=== PATIENT | female | born 1975 | race Caucasian/White ===

== ENCOUNTER 2017-03-28 21:42 | Emergency (ER) | payer SELFPAY ==
--- NOTE | 2017-03-28 21:53 | EDM.PDOC ---
ED HPI GENERAL MEDICAL PROBLEM - General Chief Complaint: ENT Problem Stated Complaint: WISDOM TOOTH Time Seen by Provider: 03/28/17 21:51 - History of Present Illness INITIAL COMMENTS - FREE TEXT/NARRATIVE: HISTORY AND PHYSICAL: History of present illness: Patient 41-year-old female presents with concern of upper dental pain this is her right upper molar region she has a scheduled dentist appointment on Tuesday no reported fever chills nausea vomiting or other complaints Review of systems: As per history of present illness and below otherwise all systems reviewed and negative. Past medical history: As per history of present illness and as reviewed below otherwise noncontributory. Surgical history: As per history of present illness and as reviewed below otherwise noncontributory. Social history: No reported history of drug or alcohol abuse. Family history: As per history of present illness and as reviewed below otherwise noncontributory. Physical exam: HEENT: Atraumatic, normocephalic, pupils reactive, negative for conjunctival pallor or scleral icterus, mucous membranes moist, throat clear, neck supple, nontender, trachea midline. Generally poor dentition patient has some tenderness and some small gingival swelling in region of the right upper molar Lungs: Clear to auscultation, breath sounds equal bilaterally, chest nontender. Heart: S1S2, regular, negative for clicks, rubs, or JVD. Abdomen: Soft, nondistended, nontender. Negative for masses or hepatosplenomegaly. Negative for costovertebral tenderness. Pelvis: Stable nontender. Genitourinary: Deferred. Rectal: Deferred. Extremities: Atraumatic, negative for cords or calf pain. Neurovascular unremarkable. Neuro: Awake, alert, oriented. Cranial nerves II through XII unremarkable. Cerebellum unremarkable. Motor and sensory unremarkable throughout. Exam nonfocal. Diagnostics: None Therapeutics: None Impression: #1 dentalgia rule out dental abscess Definitive disposition and diagnosis as appropriate pending reevaluation and review of above. - Related Data Allergies Allergy/AdvReac Type Severity Reaction Status Date / Time No Known Allergies Allergy Verified 03/28/17 21:49 ED ROS GENERAL - Review of Systems Review Of Systems: ROS reveals no pertinent complaints other than HPI. ED EXAM, GENERAL - Physical Exam Exam: See Below (See dictation) Departure - Departure Time of Disposition: 21:50 Disposition: Home, Self-Care 01 Condition: Good Clinical Impression: Dentalgia, Dental abscess - Discharge Information Additional Instructions: The following information is given to patients seen in the emergency department who are being discharged to home. This information is to outline your options for follow-up care. We provide all patients seen in our emergency department with a follow-up referral. The need for follow-up, as well as the timing and circumstances, are variable depending upon the specifics of your emergency department visit. If you don't have a primary care physician on staff, we will provide you with a referral. We always advise you to contact your personal physician following an emergency department visit to inform them of the circumstance of the visit and for follow-up with them and/or the need for any referrals to a consulting specialist. The emergency department will also refer you to a specialist when appropriate. This referral assures that you have the opportunity for followup care with a specialist. All of these measure are taken in an effort to provide you with optimal care, which includes your followup. Under all circumstances we always encourage you to contact your private physician who remains a resource for coordinating your care. When calling for followup care, please make the office aware that this follow-up is from your recent emergency room visit. If for any reason you are refused follow-up, please contact the [facility] emergency department at and asked to speak to the emergency department charge nurse. Wes-Vee K as prescribed Naprosyn as prescribed keep dental appointment as scheduled and return as needed as discussed
[2017-03-28 22:52] VITALS: BP 128/70
== END 2017-03-28 22:01 | disposition home or self-care (01) ==
LOC: MW.ED 21:42
DX: K04.7 Periapical abscess without sinus (principal)
CPT/HCPCS: 99282; 99283

== ENCOUNTER 2017-12-23 00:55 | Inpatient (IN) | payer OTHER ==
--- NOTE | 2017-12-23 00:57 | EDM.PDOC ---
ED HPI GENERAL MEDICAL PROBLEM - General Stated Complaint: BODY ACHES, HASN'T EATEN IN 5 DAYS, VOMITING Time Seen by Provider: 12/23/17 00:55 Source of Information: Reports: Patient History Limitations: Reports: No Limitations - History of Present Illness INITIAL COMMENTS - FREE TEXT/NARRATIVE: HISTORY AND PHYSICAL: History of present illness: 42-year-old female presented emergency department with chief complaint of generalized body aches, dizziness, and tingling with past medical history of hypertension, hyperlipidemia, and PTSD. Patient states that she has had nausea and vomiting for the for past 4-5 days and hasn't able to keep almost any fluids down. She does admit to some blood in her vomitus. Admits to some lower abdominal pain but no dysuria. States that 2 weeks ago she had some stomach cramps so started taking laxatives secondary to no bowel movements. States that her constipation was relieved and she noticed some black tarry stools. She has been having heartburn but no previous history. No previous history of gastric ulcers. She has also been taking Tums, Pepto, and Advil. Does admit to a product cough that has had some blood-tinged to it. Is a 25+ pack year smoker. -Bedside Hemoccult negative -0130 nursing called me to room patient feeling light headed. BP 66/43. T-castillo and IVF's wide open. Repeat blood pressure in 10 minutes 80's systolic. Repeat BP in 20 minutes systolic in 90's with MAPs in the 60's. 1 L bolus NS total given. Blood cultures have been taken and Rocephin 1 gram started. 2nd IV started. -0200 Critical Na reported at 111 with K of 2.9 Cr 4.2 Lactate unable to be measured. -0300 Repeat Na 112. KCl with 1 L NS started. Review of systems: As per history of present illness and below otherwise all systems reviewed and negative. Past medical history: As per history of present illness and as reviewed below otherwise noncontributory. Surgical history: As per history of present illness and as reviewed below otherwise noncontributory. Social history: No reported history of drug or alcohol abuse. Family history: As per history of present illness and as reviewed below otherwise noncontributory. Physical exam: HEENT: Atraumatic, normocephalic, pupils reactive, negative for conjunctival pallor or scleral icterus, mucous membranes moist, throat clear, neck supple, nontender, trachea midline. Lungs: Diffuse wheezing throughout. Crackles heard in right lower and right mid chest. Clear to auscultation, breath sounds equal bilaterally, chest nontender. Heart: S1S2, regular, negative for clicks, rubs, or JVD. Abdomen: Soft, nondistended, nontender. Negative for masses or hepatosplenomegaly. Negative for costovertebral tenderness. Pelvis: Stable nontender. Genitourinary: Deferred. Rectal: Deferred. Extremities: Atraumatic, negative for cords or calf pain. Neurovascular unremarkable. Neuro: Awake, alert, oriented. Cranial nerves II through XII unremarkable. Cerebellum unremarkable. Motor and sensory unremarkable throughout. Exam nonfocal. Diagnostics: CBC, CMP, UA/UC, stool guaiac, chest x-ray, blood cultures x2, Lactate, H. pylori, Sputum culture Therapeutics: 1 L LR, 1 L NS, 40 meq KCL IV, Zofran 8 mg IV 1, famotidine 20 mg IV 1, Duo- neb x1, Impression: -Severe Hyponatremia -Hypokalemia -Sepsis -Hypotension -UTI Plan: See H&P. In ED patient received a total of 1 L lactated Ringer's, 1 L normal saline, 1 L normal saline with 40 meq of potassium. Chest x-ray was unremarkable however on exam I'm somewhat suspicious that the patient does have a pneumonia which may not be showing up secondary to severe dehydration. As above patient's hypotension was stabilized with 1 L bolus initially of LR. 1 L normal saline was started after this as well as 40 meq KCl. Repeat sodium after critical value 111 and after 1 L bolus showed a sodium of 112. This was taken approximally 1.5hr after initial sodium critical value. After bolus patient symptoms of peripheral tingling had resolved. I did do a bedside Hemoccult which was negative for blood. Most likely dark tarry stools from laxative use. Patient did receive famotidine 20 mg IV 1. During patient's period of hypotension her oxygenation did drop into the mid 80s. She was started on 1-2 L per nasal cannula of oxygen. Secondary to wheezing and crackles on examination and desaturation she was given 1 DuoNeb. After breathing treatment patient was satting 98% on room air. [address] Camara called and informed of patient. Discussed at length patient's current status and he accepted her for ICU admission. I did repeat Lactate again and it was unreadable most likely too high. Definitive disposition and diagnosis as appropriate pending reevaluation and review of above. Generalized Pain Score (Numeric/FACES): 10 - Related Data Allergies Allergy/AdvReac Type Severity Reaction Status Date / Time pollen extracts Allergy Other Verified 12/23/17 01:09 pet dander Allergy Other Uncoded 12/23/17 01:09 Home Meds: Home Meds Lisinopril/Hydrochlorothiazide [Lisinopril-Hctz 20-12.5 mg Tab] 1 tab PO DAILY 03/28/17 [History] Metoprolol Succinate [Toprol XL] 25 mg PO DAILY 03/28/17 [History] Venlafaxine [Effexor XR] 150 mg PO DAILY 03/28/17 [History] clonazePAM [Klonopin] 1 tab TID 12/23/17 [History] Past Medical History HEENT History: Reports: None Cardiovascular History: Reports: Hypertension Respiratory History: Reports: None Gastrointestinal History: Reports: None Genitourinary History: Reports: None MEDICAL CHEMIST History: Reports: None Musculoskeletal History: Reports: None Neurological History: Reports: None Psychiatric History: Reports: Anxiety Endocrine/Metabolic History: Reports: None Hematologic History: Reports: None Immunologic History: Reports: None Oncologic (Cancer) History: Reports: None Dermatologic History: Reports: None - Infectious Disease History Infectious Disease History: Reports: Chicken Pox - Past Surgical History Head Surgeries/Procedures: Reports: None Cardiovascular Surgical History: Reports: None Female Surgical History: Reports: Other (See Below) Other Female Surgeries/Procedures: hysteroscopy Endocrine Surgical History: Reports: None Social & Family History - Caffeine Use Caffeine Use: Reports: None ED ROS GENERAL - Review of Systems Review Of Systems: See Below ED EXAM, GENERAL - Physical Exam Exam: See Below Course - Vital Signs Last Recorded V/S: Last Vital Signs Temp 97.2 F 12/23/17 01:37 Pulse 68 12/23/17 02:20 Resp 14 12/23/17 02:20 BP 99/41 L 12/23/17 02:20 Pulse Ox 100 12/23/17 02:20 - Orders/Labs/Meds Orders: Active Orders 24 hr Category Date Time Status CXR [Chest 2V] [CR] Stat Exams 12/23/17 01:19 Ordered CULTURE BLOOD [BC] Stat Lab 12/23/17 01:58 Received CULTURE BLOOD [BC] Stat Lab 12/23/17 02:12 Received CULTURE URINE [RM] Stat Lab 12/23/17 01:19 Ordered LACTATE WITH REFLEX [BG] Stat Lab 12/23/17 01:58 Received UA W/MICROSCOPIC [URIN] Stat Lab 12/23/17 01:19 Ordered Sodium Chloride 0.9% with KCl [Normal Saline with 40 Med 12/23/17 02:30 Ordered mEq KCl] 1,000 ml IV ASDIRECTED cefTRIAXone [Rocephin in Dextrose,Iso-Osm 1 GM/50 ML] 1 Med 12/23/17 02:19 Active gm Premix Bag 1 bag IV ONETIME Blood Culture x2 Reflex Set [OM.PC] Stat Oth 12/23/17 01:35 Ordered Medication Orders Ceftriaxone Sodium/Dextrose 1 (gm/ Premix) 50 mls @ 100 mls/hr IV ONETIME ONE Stop: 12/23/17 02:48 Labs: Laboratory Tests 12/23/17 12/23/17 12/23/17 Range/Units 01:25 01:25 01:25 WBC 10.41 (4.0-11.0) K/uL RBC 4.68 (4.30-5.90) M/uL Hgb 15.3 (12.0-16.0) g/dL Hct 41.3 (36.0-46.0) % MCV 88.2 (80.0-98.0) fL MCH 32.7 H (27.0-32.0) pg MCHC 37.0 (31.0-37.0) g/dL RDW Std Deviation 37.2 (28.0-62.0) fl RDW Coeff of Sherri 12 (11.0-15.0) % Plt Count 326 (150-400) K/uL MPV 9.70 (7.40-12.00) fL Neut % (Auto) 57.0 (48.0-80.0) % Lymph % (Auto) 29.5 (16.0-40.0) % Towns % (Auto) 11.6 (0.0-15.0) % Eos % (Auto) 1.4 (0.0-7.0) % Baso % (Auto) 0.5 (0.0-1.5) % Neut # (Auto) 5.9 H (1.4-5.7) K/uL Lymph # (Auto) 3.1 H (0.6-2.4) K/uL Towns # (Auto) 1.2 H (0.0-0.8) K/uL Eos # (Auto) 0.2 (0.0-0.7) K/uL Baso # (Auto) 0.1 (0.0-0.1) K/uL Sodium 111 L* (136-145) mmol/L Potassium 2.9 L (3.5-5.1) mmol/L Chloride 68 L (98-107) mmol/L Carbon Dioxide 28.2 (21.0-32.0) mmol/L BUN 33 H (7.0-18.0) mg/dL Creatinine 4.2 H (0.6-1.0) mg/dL Est Cr Clr Drug Dosing 16.67 mL/min Estimated GFR (MDRD) 11.7 ml/min Glucose 98 (74-106) mg/dL Calcium 10.6 H (8.5-10.1) mg/dL Total Bilirubin 0.4 (0.2-1.0) mg/dL AST 47 H (15-37) IU/L ALT 30 (14-63) IU/L Alkaline Phosphatase 104 (46-116) U/L Total Protein 7.8 (6.4-8.2) g/dL Albumin 3.7 (3.4-5.0) g/dL Globulin 4.1 H (2.0-3.5) g/dL Albumin/Globulin Ratio 0.9 L (1.3-2.8) H. pylori IgG Antibody NEGATIVE (NEG) Meds: Medications Generic Name Dose Route Start Last Admin Trade Name Freq PRN Reason Stop Dose Admin Ceftriaxone Sodium/Dextrose 1 50 mls @ 100 mls/hr 12/23/17 02:19 gm/ Premix IV 12/23/17 02:48 ONETIME ONE Discontinued Medications Generic Name Dose Route Start Last Admin Trade Name Freq PRN Reason Stop Dose Admin Cyclobenzaprine HCl 10 mg 12/23/17 01:38 12/23/17 01:50 Flexeril PO 12/23/17 01:39 Not Given ONETIME ONE Famotidine 20 mg 12/23/17 01:20 12/23/17 01:29 Pepcid IVPUSH 12/23/17 01:21 20 mg ONETIME ONE Administration Lactated Ringer's 1,000 mls @ 999 mls/hr 12/23/17 01:20 12/23/17 01:29 Ringers, Lactated IV 12/23/17 02:20 999 mls/hr .BOLUS ONE Administration Ondansetron HCl 8 mg 12/23/17 01:20 12/23/17 01:29 Zofran IVPUSH 12/23/17 01:21 8 mg ONETIME ONE Administration Departure - Departure Time of Disposition: 03:40 Disposition: Admitted As Inpatient 68 Condition: Critical Clinical Impression: Hyponatremia - Discharge Information Referrals: John Roman MD [Primary Care Provider] - - My Orders Last 24 Hours: My Active Orders 12/23/17 01:19 CXR [Chest 2V] [CR] Stat CULTURE URINE [RM] Stat UA W/MICROSCOPIC [URIN] Stat 12/23/17 01:35 Blood Culture x2 Reflex Set [OM.PC] Stat 12/23/17 01:58 CULTURE BLOOD [BC] Stat LACTATE WITH REFLEX [BG] Stat 12/23/17 02:12 CULTURE BLOOD [BC] Stat 12/23/17 02:19 cefTRIAXone [Rocephin in Dextrose,Iso-Osm 1 GM/50 ML] 1 gm Premix Bag 1 bag IV ONETIME 12/23/17 02:30 Sodium Chloride 0.9% with KCl [Normal Saline with 40 mEq KCl] 1,000 ml IV ASDIRECTED - Assessment/Plan Last 24 Hours: My Active Orders 12/23/17 01:19 CXR [Chest 2V] [CR] Stat CULTURE URINE [RM] Stat UA W/MICROSCOPIC [URIN] Stat 12/23/17 01:35 Blood Culture x2 Reflex Set [OM.PC] Stat 12/23/17 01:58 CULTURE BLOOD [BC] Stat LACTATE WITH REFLEX [BG] Stat 12/23/17 02:12 CULTURE BLOOD [BC] Stat 12/23/17 02:19 cefTRIAXone [Rocephin in Dextrose,Iso-Osm 1 GM/50 ML] 1 gm Premix Bag 1 bag IV ONETIME 12/23/17 02:30 Sodium Chloride 0.9% with KCl [Normal Saline with 40 mEq KCl] 1,000 ml IV ASDIRECTED
[2017-12-23] MEDS ORDERED: Ondansetron 4 MG/2 ML SDV IVPUSH ONE (01:20)
[2017-12-23] MEDS ORDERED: Famotidine 20 MG/2 ML SDV IVPUSH ONE (01:20)
[2017-12-23] MEDS ORDERED: Lactated Ringers 1,000 ML IV ONE (01:20)
[2017-12-23] MEDS ORDERED: Cyclobenzaprine 10 MG Tab PO ONE (01:38)
[2017-12-23] MEDS ORDERED: cefTRIAXone 1 GM in Premix Bag 1 BAG IV ONE (02:19)
[2017-12-23] MEDS ORDERED: Sodium Chloride 0.9% with KCl 1,000 ML IV SCH (02:30)
[2017-12-23] MEDS ORDERED: Sodium Chloride 0.9% 1,000 ML IV SCH ×2 (02:45→11:15)
[2017-12-23] MEDS ORDERED: Albuterol/Ipratropium 3.0-0.5 MG/3 ML Neb Soln NEB ONE (02:46)
[2017-12-23] MEDS ORDERED: LORazepam 2 MG/ML SDV IVPUSH PRN (05:20)
[2017-12-23] MEDS ORDERED: Levofloxacin/Dextrose 5%-Water 750 MG in Premix Bag 1 BAG IV ONE (05:30)
[2017-12-23] MEDS: Folic Acid 1 MG Tab PO SCH ×3 (05:42→08:03)
[2017-12-23] MEDS: Thiamine 100 MG Tab PO SCH ×3 (05:42→08:03)
[2017-12-23] MEDS ORDERED: Ondansetron 4 MG/2 ML SDV IVPUSH PRN (06:03)
[2017-12-23] MEDS ORDERED: Heparin Sodium 5,000 Units/ML Vial SUBCUT SCH (06:15)
--- NOTE | 2017-12-23 06:18 | PCM.HP ---
H&P History of Present Illness - General Admit Problem/Dx: Admission Diagnosis/Problem Admission Diagnosis/Problem Hyponatremia - History of Present Illness Initial Comments - Free Text/Narative: 42 yo female with pmh of HTN, anxiety and depression who presented to the ED with one week history of nausea and vomiting. Patient reports it started with abdominal cramping and constipation. Patient took laxative which resolved her abdominal symptoms. She then developed nausea and vomiting and is unable to keep anything down. She denies any blood in the stool or vomit. She denies any fevers but reports cough. She has been taking Klonipine three time a day as well as three tall glasses of vodka a day for her "panic attacks." Patient reports withdrawal symptoms when she tries to cut back. Generalized Pain Score (Numeric/FACES): 6 - Related Data Allergies/Adverse Reactions: Allergies Allergy/AdvReac Type Severity Reaction Status Date / Time pollen extracts Allergy Other Verified 12/23/17 01:09 pet dander Allergy Other Uncoded 12/23/17 01:09 Home Medications: Home Meds Lisinopril/Hydrochlorothiazide [Lisinopril-Hctz 20-12.5 mg Tab] 1 tab PO DAILY 03/28/17 [History] Metoprolol Succinate [Toprol XL] 25 mg PO DAILY 03/28/17 [History] Venlafaxine [Effexor XR] 150 mg PO DAILY 03/28/17 [History] clonazePAM [Klonopin] 1 tab TID 12/23/17 [History] Past Medical History HEENT History: Reports: None Cardiovascular History: Reports: Hypertension Respiratory History: Reports: None Gastrointestinal History: Reports: None Genitourinary History: Reports: None [employer] History: Reports: Fibroids Musculoskeletal History: Reports: None Neurological History: Reports: None Psychiatric History: Reports: Anxiety Endocrine/Metabolic History: Reports: None Hematologic History: Reports: None Immunologic History: Reports: None Oncologic (Cancer) History: Reports: None Dermatologic History: Reports: None - Infectious Disease History Infectious Disease History: Reports: Chicken Pox - Past Surgical History Head Surgeries/Procedures: Reports: None Cardiovascular Surgical History: Reports: None Female Surgical History: Reports: Other (See Below) Other Female Surgeries/Procedures: hysteroscopy Endocrine Surgical History: Reports: None Social & Family History - Family History Family Medical History: Noncontributory - Tobacco Use Smoking Status *Q: Current Every Day Smoker Years of Tobacco use: 23 Packs/Tins Daily: 1 Second Hand Smoke Exposure: No - Caffeine Use Caffeine Use: Reports: None - Alcohol Use Days Per Week of Alcohol Use: 7 Number of Drinks Per Day: 3 Total Drinks Per Week: 21 Date of Last Drink: 12/22/17 Time of Last Drink: 19:30 - Recreational Drug Use Recreational Drug Use: No H&P Review of Systems - Review of Systems: Review Of Systems: ROS reveals no pertinent complaints other than HPI. Exam - Exam Exam: See Below - Vital Signs Vital Signs: Last Vital Signs Temp 36.1 C 12/23/17 04:00 Pulse 80 12/23/17 04:00 Resp 14 12/23/17 04:00 BP 111/42 L 12/23/17 04:00 Pulse Ox 95 12/23/17 04:00 Weight: 91.3 kg - Exam General: Alert, Oriented HEENT: Posterior Pharynx Clear Neck: Supple, Trachea Midline Lungs: Clear to Auscultation, Normal Respiratory Effort Cardiovascular: Regular Rate, Regular Rhythm GI/Abdominal Exam: Normal Bowel Sounds, Soft, No Organomegaly, No Distention Extremities: Non-Tender, No Pedal Edema Skin: Warm, Dry, Intact - Patient Data Lab Results Last 24 hrs: Laboratory Results - last 24 hr 12/23/17 12/23/17 12/23/17 Range/Units 01:19 01:25 01:25 WBC 10.41 (4.0-11.0) K/uL RBC 4.68 (4.30-5.90) M/uL Hgb 15.3 (12.0-16.0) g/dL Hct 41.3 (36.0-46.0) % MCV 88.2 (80.0-98.0) fL MCH 32.7 H (27.0-32.0) pg MCHC 37.0 (31.0-37.0) g/dL RDW Std Deviation 37.2 (28.0-62.0) fl RDW Coeff of Sherri 12 (11.0-15.0) % Plt Count 326 (150-400) K/uL MPV 9.70 (7.40-12.00) fL Neut % (Auto) 57.0 (48.0-80.0) % Lymph % (Auto) 29.5 (16.0-40.0) % [place] % (Auto) 11.6 (0.0-15.0) % Eos % (Auto) 1.4 (0.0-7.0) % Baso % (Auto) 0.5 (0.0-1.5) % Neut # (Auto) 5.9 H (1.4-5.7) K/uL Lymph # (Auto) 3.1 H (0.6-2.4) K/uL [place] # (Auto) 1.2 H (0.0-0.8) K/uL Eos # (Auto) 0.2 (0.0-0.7) K/uL Baso # (Auto) 0.1 (0.0-0.1) K/uL Lactate Sodium 111 L* (136-145) mmol/L Potassium 2.9 L (3.5-5.1) mmol/L Chloride 68 L (98-107) mmol/L Carbon Dioxide 28.2 (21.0-32.0) mmol/L BUN 33 H (7.0-18.0) mg/dL Creatinine 4.2 H (0.6-1.0) mg/dL Est Cr Clr Drug Dosing 16.67 mL/min Estimated GFR (MDRD) 11.7 ml/min Glucose 98 (74-106) mg/dL Calcium 10.6 H (8.5-10.1) mg/dL Total Bilirubin 0.4 (0.2-1.0) mg/dL AST 47 H (15-37) IU/L ALT 30 (14-63) IU/L Alkaline Phosphatase 104 (46-116) U/L Total Protein 7.8 (6.4-8.2) g/dL Albumin 3.7 (3.4-5.0) g/dL Globulin 4.1 H (2.0-3.5) g/dL Albumin/Globulin Ratio 0.9 L (1.3-2.8) Urine Color YELLOW Urine Appearance SLT CLOUDY Urine pH 6.0 (5.0-8.0) Ur Specific [place] 1.015 (1.001-1.035) Urine Protein TRACE (NEGATIVE) mg/dL Urine Glucose (UA) NEGATIVE (NEGATIVE) mg/dL Urine Ketones NEGATIVE (NEGATIVE) mg/dL Urine Occult Blood NEGATIVE (NEGATIVE) Urine Nitrite NEGATIVE (NEGATIVE) Urine Bilirubin NEGATIVE (NEGATIVE) Urine Urobilinogen 0.2 (<2.0) EU/dL Ur Leukocyte Esterase TRACE (NEGATIVE) Urine RBC NONE SEEN (0-2/HPF) Urine WBC 6-11 (0-5/HPF) Ur Epithelial Cells MODERATE (NONE-FEW) Calcium Oxalate Crystal RARE (NEGATIVE) Urine Bacteria FEW (NEGATIVE) Urine Mucus LIGHT (NONE-MOD) H. pylori IgG Antibody (NEG) 12/23/17 12/23/17 12/23/17 Range/Units 01:25 01:58 01:58 WBC (4.0-11.0) K/uL RBC (4.30-5.90) M/uL Hgb (12.0-16.0) g/dL Hct (36.0-46.0) % MCV (80.0-98.0) fL MCH (27.0-32.0) pg MCHC (31.0-37.0) g/dL RDW Std Deviation (28.0-62.0) fl RDW Coeff of Sherri (11.0-15.0) % Plt Count (150-400) K/uL MPV (7.40-12.00) fL Neut % (Auto) (48.0-80.0) % Lymph % (Auto) (16.0-40.0) % [place] % (Auto) (0.0-15.0) % Eos % (Auto) (0.0-7.0) % Baso % (Auto) (0.0-1.5) % Neut # (Auto) (1.4-5.7) K/uL Lymph # (Auto) (0.6-2.4) K/uL [place] # (Auto) (0.0-0.8) K/uL Eos # (Auto) (0.0-0.7) K/uL Baso # (Auto) (0.0-0.1) K/uL Lactate WIRE STEWARD Sodium 112 L* (136-145) mmol/L Potassium (3.5-5.1) mmol/L Chloride (98-107) mmol/L Carbon Dioxide (21.0-32.0) mmol/L BUN (7.0-18.0) mg/dL Creatinine (0.6-1.0) mg/dL Est Cr Clr Drug Dosing mL/min Estimated GFR (MDRD) ml/min Glucose (74-106) mg/dL Calcium (8.5-10.1) mg/dL Total Bilirubin (0.2-1.0) mg/dL AST (15-37) IU/L ALT (14-63) IU/L Alkaline Phosphatase (46-116) U/L Total Protein (6.4-8.2) g/dL Albumin (3.4-5.0) g/dL Globulin (2.0-3.5) g/dL Albumin/Globulin Ratio (1.3-2.8) Urine Color Urine Appearance Urine pH (5.0-8.0) Ur Specific [place] (1.001-1.035) Urine Protein (NEGATIVE) mg/dL Urine Glucose (UA) (NEGATIVE) mg/dL Urine Ketones (NEGATIVE) mg/dL Urine Occult Blood (NEGATIVE) Urine Nitrite (NEGATIVE) Urine Bilirubin (NEGATIVE) Urine Urobilinogen (<2.0) EU/dL Ur Leukocyte Esterase (NEGATIVE) Urine RBC (0-2/HPF) Urine WBC (0-5/HPF) Ur Epithelial Cells (NONE-FEW) Calcium Oxalate Crystal (NEGATIVE) Urine Bacteria (NEGATIVE) Urine Mucus (NONE-MOD) H. pylori IgG Antibody NEGATIVE (NEG) 12/23/17 12/23/17 12/23/17 Range/Units 02:50 05:01 05:01 WBC (4.0-11.0) K/uL RBC (4.30-5.90) M/uL Hgb (12.0-16.0) g/dL Hct (36.0-46.0) % MCV (80.0-98.0) fL MCH (27.0-32.0) pg MCHC (31.0-37.0) g/dL RDW Std Deviation (28.0-62.0) fl RDW Coeff of Sherri (11.0-15.0) % Plt Count (150-400) K/uL MPV (7.40-12.00) fL Neut % (Auto) (48.0-80.0) % Lymph % (Auto) (16.0-40.0) % [place] % (Auto) (0.0-15.0) % Eos % (Auto) (0.0-7.0) % Baso % (Auto) (0.0-1.5) % Neut # (Auto) (1.4-5.7) K/uL Lymph # (Auto) (0.6-2.4) K/uL [place] # (Auto) (0.0-0.8) K/uL Eos # (Auto) (0.0-0.7) K/uL Baso # (Auto) (0.0-0.1) K/uL Lactate WIRE STEWARD WIRE STEWARD Sodium 114 L* (136-145) mmol/L Potassium 3.0 L (3.5-5.1) mmol/L Chloride 76 L (98-107) mmol/L Carbon Dioxide 28.4 (21.0-32.0) mmol/L BUN 31 H (7.0-18.0) mg/dL Creatinine 3.4 H (0.6-1.0) mg/dL Est Cr Clr Drug Dosing 20.59 mL/min Estimated GFR (MDRD) 15.0 ml/min Glucose 93 (74-106) mg/dL Calcium 10.1 (8.5-10.1) mg/dL Total Bilirubin (0.2-1.0) mg/dL AST (15-37) IU/L ALT (14-63) IU/L Alkaline Phosphatase (46-116) U/L Total Protein (6.4-8.2) g/dL Albumin (3.4-5.0) g/dL Globulin (2.0-3.5) g/dL Albumin/Globulin Ratio (1.3-2.8) Urine Color Urine Appearance Urine pH (5.0-8.0) Ur Specific [place] (1.001-1.035) Urine Protein (NEGATIVE) mg/dL Urine Glucose (UA) (NEGATIVE) mg/dL Urine Ketones (NEGATIVE) mg/dL Urine Occult Blood (NEGATIVE) Urine Nitrite (NEGATIVE) Urine Bilirubin (NEGATIVE) Urine Urobilinogen (<2.0) EU/dL Ur Leukocyte Esterase (NEGATIVE) Urine RBC (0-2/HPF) Urine WBC (0-5/HPF) Ur Epithelial Cells (NONE-FEW) Calcium Oxalate Crystal (NEGATIVE) Urine Bacteria (NEGATIVE) Urine Mucus (NONE-MOD) H. pylori IgG Antibody (NEG) Result Diagrams: 12/23/17 01:25 12/23/17 05:01 Kunal Results Last 24 hrs: Microbiology 12/23/17 03:00 Gram Stain - Final Sputum - Expectorated Problem List Initiated/Reviewed/Updated: Yes Orders Last 24hrs: Active Orders 24 hr Category Date Time Status Admission Status [Patient Status] [ADT] Stat ADT 12/23/17 03:27 Active Cardiac Monitoring [RC] . DIRECTED Care 12/23/17 03:27 Active Oxygen Therapy [RC] PRN Care 12/23/17 06:03 Ordered RT Aerosol Therapy [RC] ASDIRECTED Care 12/23/17 02:46 Active Up ad Rosalia [RC] ASDIRECTED Care 12/23/17 06:03 Ordered VTE/DVT Education [RC] PER UNIT ROUTINE Care 12/23/17 06:03 Ordered Vital Signs [RC] Q4H Care 12/23/17 06:03 Ordered CXR [Chest 2V] [CR] Stat Exams 12/23/17 01:19 Taken PICC Line Insertion [CR] Routine Exams 12/23/17 06:06 Ordered BASIC METABOLIC PANEL,BMP [CHEM] AM Lab 12/24/17 05:11 Ordered BMP [BASIC METABOLIC PANEL,BMP] [CHEM] Routine Lab 12/23/17 13:00 Ordered CBC WITH AUTO DIFF [HEME] AM Lab 12/24/17 05:11 Ordered CULTURE BLOOD [BC] Stat Lab 12/23/17 01:58 Received CULTURE BLOOD [BC] Stat Lab 12/23/17 02:12 Received CULTURE SPUTUM + SMEAR [RM] Stat Lab 12/23/17 03:00 Ordered CULTURE URINE [RM] Stat Lab 12/23/17 01:19 Ordered INFLUENZA A+B AG SCREEN [RM] Urgent Lab 12/23/17 05:40 Ordered SODIUM,NA [CHEM] Q4H Lab 12/23/17 09:00 Ordered SODIUM,NA [CHEM] Q4H Lab 12/23/17 17:00 Ordered SODIUM,NA [CHEM] Q4H Lab 12/23/17 21:00 Ordered UA W/MICROSCOPIC [URIN] Stat Lab 12/23/17 01:19 Ordered ClonazePAM [KlonoPIN] Med 12/23/17 06:07 Ordered 1 tab PO TID Folic Acid Med 12/23/17 05:30 Active 1 mg PO DAILY Heparin Sodium Med 12/23/17 06:15 Ordered 5,000 units SUBCUT Q12H Heparin Sodium Med 12/23/17 06:15 Ordered 5,000 units SUBCUT Q8H LORazepam [Ativan] Med 12/23/17 05:20 Active See Protocol IVPUSH Q4H PRN Levofloxacin/Dextrose 5%-Water [Levaquin in D5W 500 MG/ Med 12/25/17 05:30 Active 100 ML] 100 ml IV Q48H Levofloxacin/Dextrose 5%-Water [Levaquin in D5W 750 MG/ Med 12/23/17 05:30 Active 150 ML] 750 mg Premix Bag 1 bag IV NOW Ondansetron [Zofran] Med 12/23/17 06:03 Ordered 4 mg IVPUSH Q4H PRN Pantoprazole [ProTONIX IV] Med 12/23/17 09:00 Ordered 40 mg IVPUSH DAILY Sodium Chloride 0.9% [Normal Saline] 1,000 ml Med 12/23/17 02:45 Active IV ASDIRECTED Sodium Chloride 0.9% with KCl [Normal Saline with 40 Med 12/23/17 02:30 Active mEq KCl] 1,000 ml IV ASDIRECTED Thiamine [Vitamin B-1] Med 12/23/17 05:30 Active 100 mg PO DAILY Blood Culture x2 Reflex Set [OM.PC] Stat Oth 12/23/17 01:35 Ordered Sequential Compression Device [OM.PC] Per Unit Routine Ot 12/23/17 06:04 Ordered Resuscitation Status Routine Resus Stat 12/23/17 06:03 Ordered Medication Orders Clonazepam (Klonopin) mg PO TID [facility] Folic Acid (Folic Acid) 1 mg PO DAILY [facility] Last Admin: 12/23/17 05:42 Dose: 1 mg Heparin Sodium (Porcine) (Heparin Sodium) 5,000 units SUBCUT Q12H DWAYNE Heparin Sodium (Porcine) (Heparin Sodium) 5,000 units SUBCUT Q8H [facility] Potassium Chloride/Sodium Chloride (Normal Saline With 40 Meq Kcl) 1,000 mls @ 125 mls/hr IV ASDIRECTED DWAYNE Last Admin: 12/23/17 02:51 Dose: 125 mls/hr Sodium Chloride (Normal Saline) 1,000 mls @ 999 mls/hr IV ASDIRECTED DWAYNE Last Admin: 12/23/17 02:34 Dose: 999 mls/hr Levofloxacin/Dextrose 750 mg/ (Premix) 150 mls @ 100 mls/hr IV NOW ONE Stop: 12/23/17 06:59 Last Admin: 12/23/17 05:43 Dose: 100 mls/hr Levofloxacin/Dextrose (Levaquin In D5w 500 Mg/100 Ml) 100 mls @ 100 mls/hr IV Q48H [facility]AY[facility] Lorazepam (Ativan) 0 mg IVPUSH Q4H PRN; Protocol PRN Reason: Agitation Ondansetron HCl (Zofran) 4 mg IVPUSH Q4H PRN PRN Reason: Nausea Pantoprazole Sodium (Protonix Iv) 40 mg IVPUSH DAILY [facility] Thiamine HCl (Vitamin B-1) 100 mg PO DAILY [facility] Last Admin: 12/23/17 05:42 Dose: 100 mg Assessment/Plan Comment:: 42 yo female admitted dehydration, acute kidney injury and hyponatremia. Hyponatremia: hypovolumic and due to home medications and alcohol. we will hydrate and monitor sodium closely I spoke with eICU eric and they will help manage ETOH abuse: continue klonopin, CIWA protocol, ativan prn, thiamin and folic acid UTI and possible pneumonia: treating with levaquin, cultures are pending.
[2017-12-23] MEDS: ClonazePAM 1 MG Tab PO SCH ×3 (06:39→21:13)
[2017-12-23] MEDS: Pantoprazole 40 MG Vial IVPUSH SCH (08:00)
[2017-12-23] MEDS: Heparin Sodium 5,000 Units/ML Vial SUBCUT SCH ×2 (08:00→18:48)
[2017-12-23] MEDS: Nicotine 14 MG/24 Hr Patch TRDERM SCH (08:01)
[2017-12-23] MEDS ORDERED: Sodium Chloride 0.45% 1,000 ML IV SCH (11:45)
--- NOTE | 2017-12-23 17:25 | CR ---
EXAM DATE: 12/23/17 PATIENT'S AGE: 42 Patient: MARCO ANTONIO GRAHAM Facility: [place], [place] Site . Site : [id number] Study: XRay Chest [id number]/[id number] 2:32:09 AM Ordering Physician: Marco Christianson Final Report: INDICATION: Cough TECHNIQUE: Chest radiograph 2 views COMPARISON: None FINDINGS: Moderate degradation of image quality noted due to body habitus. Mediastinum: The cardiac silhouette is normal in appearance and size. Mediastinum is within normal limits. Lungs: Both lungs are unremarkable in appearance. No sign of pleural effusion. No pneumothorax is seen. Bones and soft tissue: No significant findings. IMPRESSION: 1. No acute cardiopulmonary disease seen. Dictated by: Fernando Barber MD @ 12/23/2017 02:33:28 (Electronic Signature) Report Signed by Proxy. [facility]
[2017-12-23] MEDS: Dextrose 5% in Water 1,000 ML IV SCH (18:23)
[2017-12-23] MEDS ORDERED: Venlafaxine 75 MG Cap.ER PO SCH ×2 (18:35→21:00)
[2017-12-23] MEDS ORDERED: Desmopressin 4 MCG/1 ML Amp SUBCUT ONE (22:45)
[2017-12-24] MEDS ORDERED: Potassium Chloride 10% 20 MEQ/15 ML Soln 30 ML UD Cup PO ONE (01:53)
[2017-12-24] MEDS: Dextrose 5% in Water 1,000 ML IV SCH (04:33)
[2017-12-24] MEDS: Heparin Sodium 5,000 Units/ML Vial SUBCUT SCH ×2 (05:23→17:28)
[2017-12-24] MEDS: ClonazePAM 1 MG Tab PO SCH ×2 (05:23→14:59)
[2017-12-24] MEDS: Folic Acid 1 MG Tab PO SCH (09:28)
[2017-12-24] MEDS: Pantoprazole 40 MG Vial IVPUSH SCH (09:28)
[2017-12-24] MEDS: Thiamine 100 MG Tab PO SCH (09:28)
[2017-12-24] MEDS: Nicotine 14 MG/24 Hr Patch TRDERM SCH (10:11)
--- NOTE | 2017-12-24 11:52 | PCM.PN ---
- General Info Date of Service: 12/24/17 - Review of Systems Systems Review Comment:: feeling better - Patient Data Vitals - Most Recent: Last Vital Signs Temp 36.2 C 12/24/17 08:29 Pulse 75 12/23/17 19:00 Resp 17 12/24/17 11:00 BP 107/64 12/24/17 11:00 Pulse Ox 91 L 12/24/17 11:00 Weight - Most Recent: 88.1 kg I&O - Last 24 Hours: Intake & Output 12/23/17 12/24/17 12/24/17 22:59 06:59 14:59 Intake Total 1350 1324 576 Output Total 1400 900 250 Balance -50 424 326 Lab Results Last 24 Hours: Laboratory Results - last 24 hr 12/23/17 12/23/17 12/23/17 Range/Units 12:52 12:52 12:52 WBC (4.0-11.0) K/uL RBC (4.30-5.90) M/uL Hgb (12.0-16.0) g/dL Hct (36.0-46.0) % MCV (80.0-98.0) fL MCH (27.0-32.0) pg MCHC (31.0-37.0) g/dL RDW Std Deviation (28.0-62.0) fl RDW Coeff of Sherri (11.0-15.0) % Plt Count (150-400) K/uL MPV (7.40-12.00) fL Neut % (Auto) (48.0-80.0) % Lymph % (Auto) (16.0-40.0) % [place] % (Auto) (0.0-15.0) % Eos % (Auto) (0.0-7.0) % Baso % (Auto) (0.0-1.5) % Neut # (Auto) (1.4-5.7) K/uL Lymph # (Auto) (0.6-2.4) K/uL [place] # (Auto) (0.0-0.8) K/uL Eos # (Auto) (0.0-0.7) K/uL Baso # (Auto) (0.0-0.1) K/uL Nucleated RBC % /100WBC Nucleated RBCs # K/uL Lactate 0.9 (0.20-2.00) mmol/L Sodium 118 L* 118 L* (136-145) mmol/L Potassium 3.5 (3.5-5.1) mmol/L Chloride 81 L (98-107) mmol/L Carbon Dioxide 29.6 (21.0-32.0) mmol/L BUN 28 H (7.0-18.0) mg/dL Creatinine 2.9 H (0.6-1.0) mg/dL Est Cr Clr Drug Dosing 24.14 mL/min Estimated GFR (MDRD) 18.0 ml/min Glucose 91 (74-106) mg/dL Calcium 10.1 (8.5-10.1) mg/dL 12/23/17 12/23/17 12/24/17 Range/Units 17:14 20:59 00:21 WBC (4.0-11.0) K/uL RBC (4.30-5.90) M/uL Hgb (12.0-16.0) g/dL Hct (36.0-46.0) % MCV (80.0-98.0) fL MCH (27.0-32.0) pg MCHC (31.0-37.0) g/dL RDW Std Deviation (28.0-62.0) fl RDW Coeff of Sherri (11.0-15.0) % Plt Count (150-400) K/uL MPV (7.40-12.00) fL Neut % (Auto) (48.0-80.0) % Lymph % (Auto) (16.0-40.0) % [place] % (Auto) (0.0-15.0) % Eos % (Auto) (0.0-7.0) % Baso % (Auto) (0.0-1.5) % Neut # (Auto) (1.4-5.7) K/uL Lymph # (Auto) (0.6-2.4) K/uL [place] # (Auto) (0.0-0.8) K/uL Eos # (Auto) (0.0-0.7) K/uL Baso # (Auto) (0.0-0.1) K/uL Nucleated RBC % /100WBC Nucleated RBCs # K/uL Lactate (0.20-2.00) mmol/L Sodium 120 L 122 L 123 L (136-145) mmol/L Potassium 3.1 L (3.5-5.1) mmol/L Chloride 83 L (98-107) mmol/L Carbon Dioxide 33.3 H (21.0-32.0) mmol/L BUN 24 H (7.0-18.0) mg/dL Creatinine 1.9 H (0.6-1.0) mg/dL Est Cr Clr Drug Dosing 36.84 mL/min Estimated GFR (MDRD) 29.3 ml/min Glucose 108 H (74-106) mg/dL Calcium 9.8 (8.5-10.1) mg/dL 12/24/17 12/24/17 Range/Units 05:47 05:47 WBC 6.55 (4.0-11.0) K/uL RBC 4.16 L (4.30-5.90) M/uL Hgb 13.3 (12.0-16.0) g/dL Hct 38.3 (36.0-46.0) % MCV 92.1 (80.0-98.0) fL MCH 32.0 (27.0-32.0) pg MCHC 34.7 (31.0-37.0) g/dL RDW Std Deviation 42.4 (28.0-62.0) fl RDW Coeff of Sherri 13 (11.0-15.0) % Plt Count 279 (150-400) K/uL MPV 9.60 (7.40-12.00) fL Neut % (Auto) 50.8 (48.0-80.0) % Lymph % (Auto) 33.0 (16.0-40.0) % [place] % (Auto) 15.1 H (0.0-15.0) % Eos % (Auto) 0.8 (0.0-7.0) % Baso % (Auto) 0.3 (0.0-1.5) % Neut # (Auto) 3.3 (1.4-5.7) K/uL Lymph # (Auto) 2.2 (0.6-2.4) K/uL [place] # (Auto) 1.0 H (0.0-0.8) K/uL Eos # (Auto) 0.1 (0.0-0.7) K/uL Baso # (Auto) 0.0 (0.0-0.1) K/uL Nucleated RBC % 0.0 /100WBC Nucleated RBCs # 0 K/uL Lactate (0.20-2.00) mmol/L Sodium 123 L (136-145) mmol/L Potassium 3.5 (3.5-5.1) mmol/L Chloride 84 L (98-107) mmol/L Carbon Dioxide 34.1 H (21.0-32.0) mmol/L BUN 22 H (7.0-18.0) mg/dL Creatinine 1.6 H (0.6-1.0) mg/dL Est Cr Clr Drug Dosing 43.75 mL/min Estimated GFR (MDRD) 35.7 ml/min Glucose 96 (74-106) mg/dL Calcium 9.9 (8.5-10.1) mg/dL Kunal Results Last 24 Hours: Microbiology 12/23/17 02:12 Aerobic Blood Culture - Preliminary Blood - Venous - Lab Draw NO GROWTH AFTER 1 DAY Anaerobic Blood Culture - Preliminary NO GROWTH AFTER 1 DAY 12/23/17 01:58 Aerobic Blood Culture - Preliminary Blood - Venous NO GROWTH AFTER 1 DAY Anaerobic Blood Culture - Preliminary NO GROWTH AFTER 1 DAY 12/23/17 17:00 Influenza Type A Antigen Screen - Final Nasopharyngeal Swab NEGATIVE INFLUENZA A VIRUS AG Influenza Type B Antigen Screen - Final NEGATIVE INFLUENZA B VIRUS AG Med Orders - Current: Current Medications Clonazepam (Klonopin) 1 mg PO TID [facility] Last Admin: 12/24/17 05:23 Dose: 1 mg Folic Acid (Folic Acid) 1 mg PO DAILY [facility] Last Admin: 12/24/17 09:28 Dose: 1 mg Heparin Sodium (Porcine) (Heparin Sodium) 5,000 units SUBCUT Q12H [facility] Last Admin: 12/24/17 05:23 Dose: 5,000 units Levofloxacin/Dextrose (Levaquin In D5w 500 Mg/100 Ml) 100 mls @ 100 mls/hr IV Q48H [facility] Dextrose/Water (Dextrose 5% In Water) 1,000 mls @ 100 mls/hr IV ASDIRECTED [facility] Last Admin: 12/24/17 04:33 Dose: 100 mls/hr Lorazepam (Ativan) 0 mg IVPUSH Q4H PRN; Protocol PRN Reason: Agitation Last Admin: 12/23/17 15:35 Dose: 1 mg Nicotine (Habitrol) 14 mg TRDERM DAILY [facility] Last Admin: 12/24/17 10:11 Dose: 14 mg Ondansetron HCl (Zofran) 4 mg IVPUSH Q4H PRN PRN Reason: Nausea Pantoprazole Sodium (Protonix Iv) 40 mg IVPUSH DAILY [facility] Last Admin: 12/24/17 09:28 Dose: 40 mg Thiamine HCl (Vitamin B-1) 100 mg PO DAILY [facility] Last Admin: 12/24/17 09:28 Dose: 100 mg Venlafaxine HCl (Effexor Xr) 150 mg PO BEDTIME [facility]END[facility] Last Admin: 12/23/17 18:48 Dose: 150 mg Discontinued Medications Albuterol/Ipratropium (Duoneb 3.0-0.5 Mg/3 Ml) 3 ml NEB ONETIME ONE Stop: 12/23/17 02:47 Last Admin: 12/23/17 03:04 Dose: 3 ml Cyclobenzaprine HCl (Flexeril) 10 mg PO ONETIME ONE Stop: 12/23/17 01:39 Last Admin: 12/23/17 01:50 Dose: Not Given Desmopressin Acetate (Desmopressin) 2 mcg SUBCUT ONETIME ONE Stop: 12/23/17 22:46 Last Admin: 12/23/17 23:04 Dose: 2 mcg Famotidine (Pepcid) 20 mg IVPUSH ONETIME ONE Stop: 12/23/17 01:21 Last Admin: 12/23/17 01:29 Dose: 20 mg Lactated Ringer's (Ringers, Lactated) 1,000 mls @ 999 mls/hr IV .BOLUS ONE Stop: 12/23/17 02:20 Last Admin: 12/23/17 01:29 Dose: 999 mls/hr Ceftriaxone Sodium/Dextrose 1 (gm/ Premix) 50 mls @ 100 mls/hr IV ONETIME ONE Stop: 12/23/17 02:48 Last Admin: 12/23/17 02:34 Dose: 100 mls/hr Potassium Chloride/Sodium Chloride (Normal Saline With 40 Meq Kcl) 1,000 mls @ 125 mls/hr IV ASDIRECTED PENDING SALE TO [facility] Last Admin: 12/23/17 02:51 Dose: 125 mls/hr Sodium Chloride (Normal Saline) 1,000 mls @ 999 mls/hr IV ASDIRECTED PENDING SALE TO [facility] Last Admin: 12/23/17 02:34 Dose: 999 mls/hr Levofloxacin/Dextrose 750 mg/ (Premix) 150 mls @ 100 mls/hr IV NOW ONE Stop: 12/23/17 06:59 Last Admin: 12/23/17 05:43 Dose: 100 mls/hr Sodium Chloride (Normal Saline) 1,000 mls @ 75 mls/hr IV ASDIRECTED DWAYNE Sodium Chloride (Sodium Chloride 0.45%) 1,000 mls @ 75 mls/hr IV ASDIRECTED DWAYNE Last Admin: 12/23/17 11:46 Dose: 75 mls/hr Ondansetron HCl (Zofran) 8 mg IVPUSH ONETIME ONE Stop: 12/23/17 01:21 Last Admin: 12/23/17 01:29 Dose: 8 mg Potassium Chloride (Potassium Chloride) 40 meq PO ONETIME ONE Stop: 12/24/17 01:54 Last Admin: 12/24/17 02:26 Dose: 40 meq Venlafaxine HCl (Effexor Xr) 150 mg PO BEDTIME DWAYNE - Exam General: Alert, Oriented Neck: Supple Lungs: Clear to Auscultation, Normal Respiratory Effort Cardiovascular: Regular Rate, Regular Rhythm GI/Abdominal Exam: Normal Bowel Sounds, Soft, Non-Tender Extremities: Non-Tender, No Pedal Edema Skin: Warm, Dry, Intact Neurological: No New Focal Deficit - Problem List Review Problem List Initiated/Reviewed/Updated: Yes - My Orders Last 24 Hours: My Active Orders 12/25/17 05:30 Levofloxacin/Dextrose 5%-Water [Levaquin in D5W 500 MG/100 ML] 100 ml IV Q48H - Plan Plan:: 42 yo female admitted dehydration, acute kidney injury and hyponatremia. Hyponatremia: sodium is 123, eICU helping in management. patient on D5W and desmopressin to slow down rate of correction, will continue to monitor sodium closely. ETOH abuse: continue home dose of klonopin, CIWA protocol, ativan prn, thiamin and folic acid UTI and possible pneumonia: treating with levaquin, cultures are pending.
[2017-12-24] MEDS ORDERED: Sodium Chloride 0.45% 1,000 ML IV SCH (12:00)
[2017-12-24] MEDS ORDERED: LORazepam 2 MG/ML SDV IVPUSH ONE (18:45)
[2017-12-24] MEDS ORDERED: Venlafaxine 75 MG Cap.ER PO SCH (19:00)
[2017-12-24 20:49] VITALS: BP 120/82
[2017-12-25] MEDS ORDERED: Levofloxacin/Dextrose 5%-Water 100 ML IV SCH (05:30)
== END 2017-12-24 20:30 | disposition left against medical advice (07) | DRG 640 ==
LOC: MW.ED 00:55 → MW.ICU 03:27
PROVIDERS: ADMIT Internal Medicine; ATTEND Internal Medicine
DX: E87.1 Hypo-osmolality and hyponatremia (principal); J18.9 Pneumonia, unspecified organism; N17.9 Acute kidney failure, unspecified; N39.0 Urinary tract infection, site not specified; E86.0 Dehydration; I10 Essential (primary) hypertension; E78.5 Hyperlipidemia, unspecified; F10.10 Alcohol abuse, uncomplicated; F43.10 Post-traumatic stress disorder, unspecified; F41.9 Anxiety disorder, unspecified; F17.200 Nicotine dependence, unspecified, uncomplicated; Z79.899 Other long term (current) drug therapy
CPT/HCPCS: 36415; 71046; 71046-26; 80048; 80053; 81001; 83605; 83930; 83935; 84295; 85025; 86677; 87040; 87070; 87086; 87088; 87205; 87804; 94640; 96361; 96365; 96367; 96375; 99285-25; A9270-GY; C9113; J0696; J1644; J1956; J2060; J2405; J2597; J3480; J7030; J7040; J7060; J7120

== ENCOUNTER 2018-04-04 11:30 | Inpatient (IN) | payer OTHER ==
[2018-04-04] MEDS ORDERED: Sodium Chloride 0.9% 2.5 ML Syringe FLUSH PRN ×2 (13:09→16:09)
[2018-04-04] MEDS ORDERED: Ondansetron 4 MG/2 ML SDV IVPUSH ONE (13:09)
[2018-04-04] MEDS ORDERED: Sodium Chloride 0.9% 1,000 ML IV ONE (13:09)
[2018-04-04] MEDS ORDERED: Sodium Chloride 0.9% 10 ML Syringe FLUSH PRN ×2 (13:09→16:09)
--- NOTE | 2018-04-04 13:31 | EDM.PDOC ---
ED HPI GENERAL MEDICAL PROBLEM - General Chief Complaint: General Stated Complaint: DIZZY AND BACK PAIN Time Seen by Provider: 04/04/18 11:46 Source of Information: Reports: Patient History Limitations: Reports: No Limitations - History of Present Illness INITIAL COMMENTS - FREE TEXT/NARRATIVE: History of present illness: []Patient has been in bed for 2 weeks with abdominal pain, swelling, vomiting and diarrhea. She denies any fevers or chills and states she has not been able to eat anything for 2 weeks but has been tolerating some fluids. Patient is an alcoholic and drinks approximately 10 shots of vodka a day from her normal. Review of systems: As per history of present illness and below otherwise all systems reviewed and negative. Past medical history: As per history of present illness and as reviewed below otherwise noncontributory. Surgical history: As per history of present illness and as reviewed below otherwise noncontributory. Social history: No reported history of drug or alcohol abuse. Family history: As per history of present illness and as reviewed below otherwise noncontributory. Physical exam: General: Well developed, well nourished in NAD HEENT: Atraumatic, normocephalic, pupils reactive, positive for conjunctival pallor, negative scleral icterus, mucous membranes dry, throat clear, neck supple, nontender, trachea midline. Lungs: Clear to auscultation, breath sounds equal bilaterally, chest nontender. Heart: S1S2, regular, negative for clicks, rubs, or JVD. Abdomen: Soft, tympanitic to percussion, distended, nontender. Negative for masses or hepatosplenomegaly. Negative for costovertebral tenderness. Pelvis: Stable nontender. Genitourinary: Deferred. Rectal: Deferred. Extremities: Atraumatic, negative for cords or calf pain. Neurovascular unremarkable. Neuro: Awake, alert, oriented. Cranial nerves II through XII unremarkable. Cerebellum unremarkable. Motor and sensory unremarkable throughout. Exam nonfocal. Skin:warm and dry Diagnostics: CBC, CMP, lipase, lactic acid, UA, hCG Therapeutics: IV hydration/banana bag, potassium, Zofran ED Course: Remained stable Impression: Hyponatremia, hypokalemia, vomiting, diarrhea, trichomonas, UTI Prescriptions: Plan: Admit to ICU to the hospitalist service for correction of electrolytes Definitive disposition and diagnosis as appropriate pending reevaluation and review of above. Abdominal Pain Score (Numeric/FACES): 9 - Related Data Allergies Allergy/AdvReac Type Severity Reaction Status Date / Time pollen extracts Allergy Other Verified 12/23/17 01:09 pet dander Allergy Other Uncoded 12/23/17 01:09 Home Meds: Home Meds Lisinopril/Hydrochlorothiazide [Lisinopril-Hctz 20-12.5 mg Tab] 1 tab PO DAILY 03/28/17 [History] Metoprolol Succinate [Toprol XL] 25 mg PO DAILY 03/28/17 [History] Venlafaxine [Effexor XR] 150 mg PO DAILY 03/28/17 [History] clonazePAM [Klonopin] 1 tab TID 12/23/17 [History] Hydrocodone/Acetaminophen [[place] 7.5-325 Tablet] 04/04/18 [History] Ibuprofen 04/04/18 [History] Penicillin V Potassium 04/04/18 [History] Past Medical History HEENT History: Reports: None Cardiovascular History: Reports: Hypertension Respiratory History: Reports: None Gastrointestinal History: Reports: None Genitourinary History: Reports: None 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: Fibroids Musculoskeletal History: Reports: None Neurological History: Reports: None Psychiatric History: Reports: Addiction, Anxiety, Depression, Panic Attack Endocrine/Metabolic History: Reports: None Hematologic History: Reports: None Immunologic History: Reports: None Oncologic (Cancer) History: Reports: None Dermatologic History: Reports: None - Infectious Disease History Infectious Disease History: Reports: None - Past Surgical History Head Surgeries/Procedures: Reports: None Cardiovascular Surgical History: Reports: None Female Surgical History: Reports: Other (See Below) Other Female Surgeries/Procedures: hysteroscopy Endocrine Surgical History: Reports: None Social & Family History - Family History Family Medical History: Noncontributory - Tobacco Use Smoking Status *Q: Current Every Day Smoker Years of Tobacco use: 15 Packs/Tins Daily: 1 - Caffeine Use Caffeine Use: Reports: None - Recreational Drug Use Recreational Drug Use: No ED ROS GENERAL - Review of Systems Review Of Systems: ROS reveals no pertinent complaints other than HPI. ED EXAM, GENERAL - Physical Exam Exam: See Below (See history of present illness) Course - Vital Signs Last Recorded V/S: Last Vital Signs Temp 96.6 F 04/04/18 16:15 Pulse 83 04/04/18 16:00 Resp 14 04/04/18 16:30 BP 108/57 L 04/04/18 16:30 Pulse Ox 99 04/04/18 16:30 - Orders/Labs/Meds Orders: Active Orders 24 hr Category Date Time Status Patient Status [ADT] Stat ADT 04/04/18 15:00 Active EKG Documentation Completion [RC] STAT Care 04/04/18 14:00 Active MVI, Adult with Vitamin K [Infuvite Adult] 10 ml Med 04/04/18 14:01 Active Thiamine [Vitamin B-1] 100 mg Folic Acid 1 mg Potassium Chloride 40 meq Sodium Chloride 0.9% [Normal Saline] 1,000 ml IV ONETIME Sodium Chloride 0.9% [Saline Flush] Med 04/04/18 13:09 Active 10 ml FLUSH ASDIRECTED PRN Sodium Chloride 0.9% [Saline Flush] Med 04/04/18 13:09 Active 2.5 ml FLUSH ASDIRECTED PRN Saline Lock Insert [OM.PC] Stat Oth 04/04/18 13:09 Ordered Medication Orders Albuterol/Ipratropium (Duoneb 3.0-0.5 Mg/3 Ml) 3 ml NEB Q4HRRT PRN PRN Reason: Shortness Of Breath/wheezing Enoxaparin Sodium (Lovenox) 40 mg SUBCUT Q24H [facility] Folic Acid (Folic Acid) 1 mg SUBCUT DAILY [facility] Multivitamins/Minerals 10 ml/Thiamine HCl 100 mg/ Folic Acid 1 mg/ Potassium Chloride 40 meq/ Sodium Chloride 1,031.2 mls @ 250 mls/hr IV ONETIME ONE Stop: 04/04/18 18:08 Last Admin: 04/04/18 14:39 Dose: 250 mls/hr Ceftriaxone Sodium 1 gm/ (Sodium Chloride) 50 mls @ 100 mls/hr IV Q24H [facility] Lorazepam (Ativan) 0 mg IM Q4H PRN; Protocol PRN Reason: Agitation Morphine Sulfate (Morphine) 2 mg IVPUSH Q2H PRN PRN Reason: Pain (severe 7-10) Stop: 04/05/18 16:10 Ondansetron HCl (Zofran) 4 mg IVPUSH Q4H PRN PRN Reason: Nausea/Vomiting Pantoprazole Sodium (Protonix Iv) 40 mg IVPUSH DAILY [facility] Sodium Chloride (Saline Flush) 10 ml FLUSH ASDIRECTED PRN PRN Reason: Keep Vein Open Last Admin: 04/04/18 13:29 Dose: 10 ml Sodium Chloride (Saline Flush) 2.5 ml FLUSH ASDIRECTED PRN PRN Reason: Keep Vein Open Last Admin: 04/04/18 13:29 Dose: 2.5 ml Sodium Chloride (Saline Flush) 10 ml FLUSH ASDIRECTED PRN PRN Reason: Keep Vein Open Sodium Chloride (Saline Flush) 2.5 ml FLUSH ASDIRECTED PRN PRN Reason: Keep Vein Open Thiamine HCl (Vitamin B-1) 100 mg IV DAILY [facility] Labs: Laboratory Tests 04/04/18 04/04/18 04/04/18 Range/Units 12:50 12:50 13:30 WBC 15.58 H (4.0-11.0) K/uL RBC 3.81 L (4.30-5.90) M/uL Hgb 12.5 (12.0-16.0) g/dL Hct 33.4 L (36.0-46.0) % MCV 87.7 (80.0-98.0) fL MCH 32.8 H (27.0-32.0) pg MCHC 37.4 H (31.0-37.0) g/dL RDW Std Deviation 42.3 (28.0-62.0) fl RDW Coeff of Sherri 13 (11.0-15.0) % Plt Count 291 (150-400) K/uL MPV 9.80 (7.40-12.00) fL Neut % (Auto) 80.2 H (48.0-80.0) % Lymph % (Auto) 12.8 L (16.0-40.0) % [place] % (Auto) 6.5 (0.0-15.0) % Eos % (Auto) 0.4 (0.0-7.0) % Baso % (Auto) 0.1 (0.0-1.5) % Neut # (Auto) 12.5 H (1.4-5.7) K/uL Lymph # (Auto) 2.0 (0.6-2.4) K/uL [place] # (Auto) 1.0 H (0.0-0.8) K/uL Eos # (Auto) 0.1 (0.0-0.7) K/uL Baso # (Auto) 0.0 (0.0-0.1) K/uL Nucleated RBC % 0.0 /100WBC Nucleated RBCs # 0 K/uL Sodium 105 L* (136-145) mmol/L Potassium 2.4 L* (3.5-5.1) mmol/L Chloride 65 L (98-107) mmol/L Carbon Dioxide 21.4 (21.0-32.0) mmol/L BUN 57 H (7.0-18.0) mg/dL Creatinine 2.6 H (0.6-1.0) mg/dL Est Cr Clr Drug Dosing TNP Estimated GFR (MDRD) 20.4 ml/min Glucose 126 H (74-106) mg/dL Calcium 8.6 (8.5-10.1) mg/dL Total Bilirubin 0.4 (0.2-1.0) mg/dL AST 44 H (15-37) IU/L ALT 13 L (14-63) IU/L Alkaline Phosphatase 201 H (46-116) U/L Total Protein 7.3 (6.4-8.2) g/dL Albumin 2.7 L (3.4-5.0) g/dL Globulin 4.6 H (2.0-3.5) g/dL Albumin/Globulin Ratio 0.6 L (1.3-2.8) Lipase 286 (73-393) U/L Urine Color YELLOW Urine Appearance SLT CLOUDY Urine pH 6.0 (5.0-8.0) Ur Specific [place] 1.010 (1.001-1.035) Urine Protein 30 (NEGATIVE) mg/dL Urine Glucose (UA) NEGATIVE (NEGATIVE) mg/dL Urine Ketones NEGATIVE (NEGATIVE) mg/dL Urine Occult Blood LARGE H (NEGATIVE) Urine Nitrite NEGATIVE (NEGATIVE) Urine Bilirubin NEGATIVE (NEGATIVE) Urine Urobilinogen 0.2 (<2.0) EU/dL Ur Leukocyte Esterase MODERATE (NEGATIVE) Urine RBC 10-15 (0-2/HPF) Urine WBC 15-20 (0-5/HPF) Ur Epithelial Cells MODERATE (NONE-FEW) Urine Bacteria 1+ H (NEGATIVE) Urine Trichomonas PRESENT (NEGATIVE) Urine HCG, Qual (NEGATIVE) Ethyl Alcohol mg/dL 04/04/18 04/04/18 Range/Units 13:30 13:56 WBC (4.0-11.0) K/uL RBC (4.30-5.90) M/uL Hgb (12.0-16.0) g/dL Hct (36.0-46.0) % MCV (80.0-98.0) fL MCH (27.0-32.0) pg MCHC (31.0-37.0) g/dL RDW Std Deviation (28.0-62.0) fl RDW Coeff of Sherri (11.0-15.0) % Plt Count (150-400) K/uL MPV (7.40-12.00) fL Neut % (Auto) (48.0-80.0) % Lymph % (Auto) (16.0-40.0) % [place] % (Auto) (0.0-15.0) % Eos % (Auto) (0.0-7.0) % Baso % (Auto) (0.0-1.5) % Neut # (Auto) (1.4-5.7) K/uL Lymph # (Auto) (0.6-2.4) K/uL [place] # (Auto) (0.0-0.8) K/uL Eos # (Auto) (0.0-0.7) K/uL Baso # (Auto) (0.0-0.1) K/uL Nucleated RBC % /100WBC Nucleated RBCs # K/uL Sodium (136-145) mmol/L Potassium (3.5-5.1) mmol/L Chloride (98-107) mmol/L Carbon Dioxide (21.0-32.0) mmol/L BUN (7.0-18.0) mg/dL Creatinine (0.6-1.0) mg/dL Est Cr Clr Drug Dosing Estimated GFR (MDRD) ml/min Glucose (74-106) mg/dL Calcium (8.5-10.1) mg/dL Total Bilirubin (0.2-1.0) mg/dL AST (15-37) IU/L ALT (14-63) IU/L Alkaline Phosphatase (46-116) U/L Total Protein (6.4-8.2) g/dL Albumin (3.4-5.0) g/dL Globulin (2.0-3.5) g/dL Albumin/Globulin Ratio (1.3-2.8) Lipase (73-393) U/L Urine Color Urine Appearance Urine pH (5.0-8.0) Ur Specific [place] (1.001-1.035) Urine Protein (NEGATIVE) mg/dL Urine Glucose (UA) (NEGATIVE) mg/dL Urine Ketones (NEGATIVE) mg/dL Urine Occult Blood (NEGATIVE) Urine Nitrite (NEGATIVE) Urine Bilirubin (NEGATIVE) Urine Urobilinogen (<2.0) EU/dL Ur Leukocyte Esterase (NEGATIVE) Urine RBC (0-2/HPF) Urine WBC (0-5/HPF) Ur Epithelial Cells (NONE-FEW) Urine Bacteria (NEGATIVE) Urine Trichomonas (NEGATIVE) Urine HCG, Qual NEGATIVE (NEGATIVE) Ethyl Alcohol <3 mg/dL Meds: Medications Generic Name Dose Route Start Last Admin Trade Name Freq PRN Reason Stop Dose Admin Albuterol/Ipratropium 3 ml 04/04/18 16:09 Duoneb 3.0-0.5 Mg/3 Ml NEB Q4HRRT PRN Shortness Of Breath/wheezing Enoxaparin Sodium 40 mg 04/04/18 16:15 Lovenox SUBCUT Q24H [facility] Folic Acid 1 mg 04/04/18 16:15 Folic Acid SUBCUT DAILY [facility] Multivitamins/Minerals 10 ml/ 1,031.2 mls @ 250 mls/hr 04/04/18 14:01 14:39 Thiamine HCl 100 mg/ Folic IV 04/04/18 18:08 250 mls/hr Acid 1 mg/ Potassium Chloride ONETIME ONE Administration 40 meq/ Sodium Chloride Ceftriaxone Sodium 1 gm/ 50 mls @ 100 mls/hr 04/04/18 16:45 Sodium Chloride IV Q24H [facility] Lorazepam 0 mg 04/04/18 16:09 Ativan IM Q4H PRN Agitation Protocol Morphine Sulfate 2 mg 04/04/18 16:09 Morphine IVPUSH 04/05/18 16:10 Q2H PRN Pain (severe 7-10) Ondansetron HCl 4 mg 04/04/18 16:09 Zofran IVPUSH Q4H PRN Nausea/Vomiting Pantoprazole Sodium 40 mg 04/04/18 16:15 Protonix Iv IVPUSH DAILY [facility] Sodium Chloride 10 ml 04/04/18 13:09 04/04/18 13:29 Saline Flush FLUSH 10 ml ASDIRECTED PRN Administration Keep Vein Open Sodium Chloride 2.5 ml 04/04/18 13:09 04/04/18 13:29 Saline Flush FLUSH 2.5 ml ASDIRECTED PRN Administration Keep Vein Open Sodium Chloride 10 ml 04/04/18 16:09 Saline Flush FLUSH ASDIRECTED PRN Keep Vein Open Sodium Chloride 2.5 ml 04/04/18 16:09 Saline Flush FLUSH ASDIRECTED PRN Keep Vein Open Thiamine HCl 100 mg 04/04/18 16:15 Vitamin B-1 IV DAILY [facility] Discontinued Medications Generic Name Dose Route Start Last Admin Trade Name Freq PRN Reason Stop Dose Admin Sodium Chloride 1,000 mls @ 999 mls/hr 04/04/18 13:09 04/04/18 13:27 Normal Saline IV 04/04/18 14:09 999 mls/hr .Bolus ONE Administration Ondansetron HCl 4 mg 04/04/18 13:09 04/04/18 13:29 Zofran IVPUSH 04/04/18 13:10 4 mg ONETIME ONE Administration Potassium Chloride 80 meq 04/04/18 14:00 04/04/18 14:34 Klor-Con M20 PO 04/04/18 14:01 80 meq ONETIME ONE Administration Departure - Departure Time of Disposition: 15:55 Disposition: Admitted As Inpatient 68 Condition: Fair Clinical Impression: Alcoholic liver disease, unspecified, Hyponatremia, Hypokalemia, Trichomonas infection, UTI (urinary tract infection) - Discharge Information *PRESCRIPTION DRUG MONITORING PROGRAM REVIEWED*: No *COPY OF PRESCRIPTION DRUG MONITORING REPORT IN PATIENT HERMINIO: No - My Orders Last 24 Hours: My Active Orders 04/04/18 13:09 Sodium Chloride 0.9% [Saline Flush] 10 ml FLUSH ASDIRECTED PRN Sodium Chloride 0.9% [Saline Flush] 2.5 ml FLUSH ASDIRECTED PRN Saline Lock Insert [OM.PC] Stat 04/04/18 14:00 EKG Documentation Completion [RC] STAT 04/04/18 14:01 MVI, Adult with Vitamin K [Infuvite Adult] 10 ml Thiamine [Vitamin B-1] 100 mg Folic Acid 1 mg Potassium Chloride 40 meq Sodium Chloride 0.9% [Normal Saline ] 1,000 ml IV ONETIME 04/04/18 15:00 Patient Status [ADT] Stat - Assessment/Plan Last 24 Hours: My Active Orders 04/04/18 13:09 Sodium Chloride 0.9% [Saline Flush] 10 ml FLUSH ASDIRECTED PRN Sodium Chloride 0.9% [Saline Flush] 2.5 ml FLUSH ASDIRECTED PRN Saline Lock Insert [OM.PC] Stat 04/04/18 14:00 EKG Documentation Completion [RC] STAT 04/04/18 14:01 MVI, Adult with Vitamin K [Infuvite Adult] 10 ml Thiamine [Vitamin B-1] 100 mg Folic Acid 1 mg Potassium Chloride 40 meq Sodium Chloride 0.9% [Normal Saline ] 1,000 ml IV ONETIME 04/04/18 15:00 Patient Status [ADT] Stat
[2018-04-04 13:52] LABS: CHLORIDE,CL 65 mmol/L (98-107)
[2018-04-04 13:59] LABS: SODIUM,NA 105 mmol/L (136-145)
[2018-04-04] MEDS ORDERED: Potassium Chloride 20 MEQ Tab.ER PO ONE (14:00)
[2018-04-04] MEDS ORDERED: MVI, Adult with Vitamin K 10 ML, Thiamine 100 MG, Folic Acid 1 MG, Potassium Chloride 4... IV ONE ×5 (14:01)
--- NOTE | 2018-04-04 15:47 | CR ---
EXAMINATION: Abdomen HISTORY: Distention COMPARISON: None TECHNIQUE: AP views FINDINGS: The liver is likely enlarged. No free air under the diaphragm. There is a nonobstructive rosanna wel gas pattern. No abnormal calcifications present of the kidneys. Visualized osseous structures rsohan ear normal. IMPRESSION: 1. Likely hepatomegaly, otherwise no acute findings within the visualized abdomen.
[2018-04-04] MEDS ORDERED: Ondansetron 4 MG/2 ML SDV IVPUSH PRN (16:09)
[2018-04-04] MEDS ORDERED: Morphine 2 MG/ML Syringe IVPUSH PRN (16:09)
[2018-04-04] MEDS ORDERED: LORazepam 2 MG/ML SDV IM PRN (16:09)
[2018-04-04] MEDS ORDERED: Albuterol/Ipratropium 3.0-0.5 MG/3 ML Neb Soln NEB PRN (16:09)
[2018-04-04 16:15] LABS: CHLORIDE,CL 70 mmol/L (98-107)
[2018-04-04] MEDS ORDERED: Enoxaparin 40 MG/0.4 ML Syringe SUBCUT SCH (16:15)
[2018-04-04 16:27] LABS: SODIUM,NA 107 mmol/L (136-145)
[2018-04-04] MEDS ORDERED: cefTRIAXone 1 GM in Sodium Chloride 0.9% 50 ML IV SCH (16:45)
[2018-04-04] MEDS ORDERED: Magnesium Sulfate/Water 4 GM in Premix Bag 1 BAG IV ONE (17:03)
[2018-04-04] MEDS: Thiamine 200 MG/2 ML MDV IV SCH (17:15)
[2018-04-04] MEDS: Folic Acid 50 MG/10 ML MDV SUBCUT SCH (17:15)
--- NOTE | 2018-04-04 17:19 | PCM.HP ---
H&P History of Present Illness - General Date of Service: 04/04/18 Admit Problem/Dx: Admission Diagnosis/Problem Admission Diagnosis/Problem Hyponatremia Source of Information: Patient - History of Present Illness Initial Comments - Free Text/Narative: This is a 42-year-old female with a significant medical history of chronic alcohol use disorder who is presenting with a 2 week history of nausea/vomiting/ abdominal pain/diarrhea. Patient presented today to the ED and severe acute distress, had a difficult time walking around and PO2 be gait in stable, initially it was thought that the patient may be intoxicated due to her chronic alcohol history however upon further evaluation and laboratory results it appears that the patient's has a severe symptomatic hyponatremia with a serum sodium level of 105 along with a concurrent hypokalemia of a 2.4 as well as hypochloremia. There were no acute EKG changes. In the ED the patient did receive 1 bolus of normal saline and is presently receiving 1 L solution of a banana bag which contains normal saline, thiamine, folate, multivitamins. For the patient's abdominal pain and abdominal series has also been done which is pending. It also does appear the patient has a urinary tract infection with a urine analysis indicating an infection along with a leukocytosis which is primarily neutrophilic in nature. Abdominal Pain Score (Numeric/FACES): 9 - Related Data Allergies/Adverse Reactions: Allergies Allergy/AdvReac Type Severity Reaction Status Date / Time pollen extracts Allergy Other Verified 12/23/17 01:09 pet dander Allergy Other Uncoded 12/23/17 01:09 Home Medications: Home Meds Lisinopril/Hydrochlorothiazide [Lisinopril-Hctz 20-12.5 mg Tab] 1 tab PO DAILY 03/28/17 [History] Metoprolol Succinate [Toprol XL] 25 mg PO DAILY 03/28/17 [History] Venlafaxine [Effexor XR] 150 mg PO DAILY 03/28/17 [History] clonazePAM [Klonopin] 1 tab TID 12/23/17 [History] Hydrocodone/Acetaminophen [Bauxite 7.5-325 Tablet] 04/04/18 [History] Ibuprofen 04/04/18 [History] Penicillin V Potassium 04/04/18 [History] Past Medical History HEENT History: Reports: None Cardiovascular History: Reports: Hypertension Respiratory History: Reports: None Gastrointestinal History: Reports: None Genitourinary History: Reports: None 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 History: Reports: Fibroids Musculoskeletal History: Reports: None Neurological History: Reports: None Psychiatric History: Reports: Addiction, Anxiety, Depression, Panic Attack Endocrine/Metabolic History: Reports: None Hematologic History: Reports: None Other Hematologic History: Intermittent anemia per pt report Immunologic History: Reports: None Oncologic (Cancer) History: Reports: None Dermatologic History: Reports: None - Infectious Disease History Infectious Disease History: Reports: None - Past Surgical History Head Surgeries/Procedures: Reports: None Cardiovascular Surgical History: Reports: None Female Surgical History: Reports: Other (See Below) Other Female Surgeries/Procedures: hysteroscopy Endocrine Surgical History: Reports: None Social & Family History - Family History Family Medical History: Noncontributory - Tobacco Use Smoking Status *Q: Current Every Day Smoker Years of Tobacco use: 15 Packs/Tins Daily: 1 - Caffeine Use Caffeine Use: Reports: None - Alcohol Use Days Per Week of Alcohol Use: 7 Number of Drinks Per Day: 7 Total Drinks Per Week: 49 Date of Last Drink: 04/04/18 Time of Last Drink: 11:00 - Recreational Drug Use Recreational Drug Use: No H&P Review of Systems - Review of Systems: Review Of Systems: ROS reveals no pertinent complaints other than HPI. Exam - Exam Exam: See Below - Vital Signs Vital Signs: Last Vital Signs Temp 35.9 C 04/04/18 16:15 Pulse 83 04/04/18 16:00 Resp 14 04/04/18 16:45 BP 107/58 L 04/04/18 16:45 Pulse Ox 96 04/04/18 16:45 Weight: 83.5 kg - Exam Quality Assessment: Supplemental Oxygen General: Alert, Oriented, Cooperative, Mild Distress Lungs: Normal Respiratory Effort, Wheezing Cardiovascular: Regular Rate, Regular Rhythm GI/Abdominal Exam: Distended, Tender Extremities: Normal Inspection, Leg Pain - Patient Data Lab Results Last 24 hrs: Laboratory Results - last 24 hr 04/04/18 04/04/18 04/04/18 Range/Units 12:50 12:50 13:30 WBC 15.58 H (4.0-11.0) K/uL RBC 3.81 L (4.30-5.90) M/uL Hgb 12.5 (12.0-16.0) g/dL Hct 33.4 L (36.0-46.0) % MCV 87.7 (80.0-98.0) fL MCH 32.8 H (27.0-32.0) pg MCHC 37.4 H (31.0-37.0) g/dL RDW Std Deviation 42.3 (28.0-62.0) fl RDW Coeff of Sherri 13 (11.0-15.0) % Plt Count 291 (150-400) K/uL MPV 9.80 (7.40-12.00) fL Neut % (Auto) 80.2 H (48.0-80.0) % Lymph % (Auto) 12.8 L (16.0-40.0) % Mccreary % (Auto) 6.5 (0.0-15.0) % Eos % (Auto) 0.4 (0.0-7.0) % Baso % (Auto) 0.1 (0.0-1.5) % Neut # (Auto) 12.5 H (1.4-5.7) K/uL Lymph # (Auto) 2.0 (0.6-2.4) K/uL Mccreary # (Auto) 1.0 H (0.0-0.8) K/uL Eos # (Auto) 0.1 (0.0-0.7) K/uL Baso # (Auto) 0.0 (0.0-0.1) K/uL Nucleated RBC % 0.0 /100WBC Nucleated RBCs # 0 K/uL Sodium 105 L* (136-145) mmol/L Potassium 2.4 L* (3.5-5.1) mmol/L Chloride 65 L (98-107) mmol/L Carbon Dioxide 21.4 (21.0-32.0) mmol/L BUN 57 H (7.0-18.0) mg/dL Creatinine 2.6 H (0.6-1.0) mg/dL Est Cr Clr Drug Dosing TNP Estimated GFR (MDRD) 20.4 ml/min Glucose 126 H (74-106) mg/dL Calcium 8.6 (8.5-10.1) mg/dL Phosphorus (2.6-4.7) mg/dL Magnesium (1.8-2.4) mg/dL Total Bilirubin 0.4 (0.2-1.0) mg/dL AST 44 H (15-37) IU/L ALT 13 L (14-63) IU/L Alkaline Phosphatase 201 H (46-116) U/L Creatine Kinase (26-308) U/L Total Protein 7.3 (6.4-8.2) g/dL Albumin 2.7 L (3.4-5.0) g/dL Globulin 4.6 H (2.0-3.5) g/dL Albumin/Globulin Ratio 0.6 L (1.3-2.8) Lipase 286 (73-393) U/L Urine Color YELLOW Urine Appearance SLT CLOUDY Urine pH 6.0 (5.0-8.0) Ur Specific [place] 1.010 (1.001-1.035) Urine Protein 30 (NEGATIVE) mg/dL Urine Glucose (UA) NEGATIVE (NEGATIVE) mg/dL Urine Ketones NEGATIVE (NEGATIVE) mg/dL Urine Occult Blood LARGE H (NEGATIVE) Urine Nitrite NEGATIVE (NEGATIVE) Urine Bilirubin NEGATIVE (NEGATIVE) Urine Urobilinogen 0.2 (<2.0) EU/dL Ur Leukocyte Esterase MODERATE (NEGATIVE) Urine RBC 10-15 (0-2/HPF) Urine WBC 15-20 (0-5/HPF) Ur Epithelial Cells MODERATE (NONE-FEW) Urine Bacteria 1+ H (NEGATIVE) Urine Trichomonas PRESENT (NEGATIVE) Urine HCG, Qual (NEGATIVE) Ethyl Alcohol mg/dL 04/04/18 04/04/18 04/04/18 Range/Units 13:30 13:56 15:52 WBC (4.0-11.0) K/uL RBC (4.30-5.90) M/uL Hgb (12.0-16.0) g/dL Hct (36.0-46.0) % MCV (80.0-98.0) fL MCH (27.0-32.0) pg MCHC (31.0-37.0) g/dL RDW Std Deviation (28.0-62.0) fl RDW Coeff of Sherri (11.0-15.0) % Plt Count (150-400) K/uL MPV (7.40-12.00) fL Neut % (Auto) (48.0-80.0) % Lymph % (Auto) (16.0-40.0) % Mccreary % (Auto) (0.0-15.0) % Eos % (Auto) (0.0-7.0) % Baso % (Auto) (0.0-1.5) % Neut # (Auto) (1.4-5.7) K/uL Lymph # (Auto) (0.6-2.4) K/uL Mccreary # (Auto) (0.0-0.8) K/uL Eos # (Auto) (0.0-0.7) K/uL Baso # (Auto) (0.0-0.1) K/uL Nucleated RBC % /100WBC Nucleated RBCs # K/uL Sodium 107 L* (136-145) mmol/L Potassium 2.7 L (3.5-5.1) mmol/L Chloride 70 L (98-107) mmol/L Carbon Dioxide 22.6 (21.0-32.0) mmol/L BUN 57 H (7.0-18.0) mg/dL Creatinine 2.3 H (0.6-1.0) mg/dL Est Cr Clr Drug Dosing TNP Estimated GFR (MDRD) 23.5 ml/min Glucose 119 H (74-106) mg/dL Calcium 8.3 L (8.5-10.1) mg/dL Phosphorus (2.6-4.7) mg/dL Magnesium (1.8-2.4) mg/dL Total Bilirubin (0.2-1.0) mg/dL AST (15-37) IU/L ALT (14-63) IU/L Alkaline Phosphatase (46-116) U/L Creatine Kinase (26-308) U/L Total Protein (6.4-8.2) g/dL Albumin (3.4-5.0) g/dL Globulin (2.0-3.5) g/dL Albumin/Globulin Ratio (1.3-2.8) Lipase (73-393) U/L Urine Color Urine Appearance Urine pH (5.0-8.0) Ur Specific [place] (1.001-1.035) Urine Protein (NEGATIVE) mg/dL Urine Glucose (UA) (NEGATIVE) mg/dL Urine Ketones (NEGATIVE) mg/dL Urine Occult Blood (NEGATIVE) Urine Nitrite (NEGATIVE) Urine Bilirubin (NEGATIVE) Urine Urobilinogen (<2.0) EU/dL Ur Leukocyte Esterase (NEGATIVE) Urine RBC (0-2/HPF) Urine WBC (0-5/HPF) Ur Epithelial Cells (NONE-FEW) Urine Bacteria (NEGATIVE) Urine Trichomonas (NEGATIVE) Urine HCG, Qual NEGATIVE (NEGATIVE) Ethyl Alcohol <3 mg/dL 04/04/18 Range/Units 15:54 WBC (4.0-11.0) K/uL RBC (4.30-5.90) M/uL Hgb (12.0-16.0) g/dL Hct (36.0-46.0) % MCV (80.0-98.0) fL MCH (27.0-32.0) pg MCHC (31.0-37.0) g/dL RDW Std Deviation (28.0-62.0) fl RDW Coeff of Sherri (11.0-15.0) % Plt Count (150-400) K/uL MPV (7.40-12.00) fL Neut % (Auto) (48.0-80.0) % Lymph % (Auto) (16.0-40.0) % Mccreary % (Auto) (0.0-15.0) % Eos % (Auto) (0.0-7.0) % Baso % (Auto) (0.0-1.5) % Neut # (Auto) (1.4-5.7) K/uL Lymph # (Auto) (0.6-2.4) K/uL Mccreary # (Auto) (0.0-0.8) K/uL Eos # (Auto) (0.0-0.7) K/uL Baso # (Auto) (0.0-0.1) K/uL Nucleated RBC % /100WBC Nucleated RBCs # K/uL Sodium (136-145) mmol/L Potassium (3.5-5.1) mmol/L Chloride (98-107) mmol/L Carbon Dioxide (21.0-32.0) mmol/L BUN (7.0-18.0) mg/dL Creatinine (0.6-1.0) mg/dL Est Cr Clr Drug Dosing Estimated GFR (MDRD) ml/min Glucose (74-106) mg/dL Calcium (8.5-10.1) mg/dL Phosphorus 3.7 (2.6-4.7) mg/dL Magnesium 1.7 L (1.8-2.4) mg/dL Total Bilirubin (0.2-1.0) mg/dL AST (15-37) IU/L ALT (14-63) IU/L Alkaline Phosphatase (46-116) U/L Creatine Kinase 38 (26-308) U/L Total Protein (6.4-8.2) g/dL Albumin (3.4-5.0) g/dL Globulin (2.0-3.5) g/dL Albumin/Globulin Ratio (1.3-2.8) Lipase (73-393) U/L Urine Color Urine Appearance Urine pH (5.0-8.0) Ur Specific [place] (1.001-1.035) Urine Protein (NEGATIVE) mg/dL Urine Glucose (UA) (NEGATIVE) mg/dL Urine Ketones (NEGATIVE) mg/dL Urine Occult Blood (NEGATIVE) Urine Nitrite (NEGATIVE) Urine Bilirubin (NEGATIVE) Urine Urobilinogen (<2.0) EU/dL Ur Leukocyte Esterase (NEGATIVE) Urine RBC (0-2/HPF) Urine WBC (0-5/HPF) Ur Epithelial Cells (NONE-FEW) Urine Bacteria (NEGATIVE) Urine Trichomonas (NEGATIVE) Urine HCG, Qual (NEGATIVE) Ethyl Alcohol mg/dL Result Diagrams: 04/04/18 12:50 04/04/18 15:52 - Problem List (1) Alcoholic liver disease, unspecified SNOMED Code(s): 43168942 ICD Code: K70.9 - ALCOHOLIC LIVER DISEASE, UNSPECIFIED Status: Acute Current Visit: Yes (2) Hypokalemia SNOMED Code(s): 24295110 ICD Code: E87.6 - HYPOKALEMIA Status: Acute Current Visit: Yes (3) Hyponatremia SNOMED Code(s): 94049019 ICD Code: E87.1 - HYPO-OSMOLALITY AND HYPONATREMIA Status: Acute Current Visit: Yes (4) UTI (urinary tract infection) SNOMED Code(s): 16432243 ICD Code: N39.0 - URINARY TRACT INFECTION, SITE NOT SPECIFIED Status: Acute Current Visit: Yes Problem List Initiated/Reviewed/Updated: Yes Orders Last 24hrs: Active Orders 24 hr Category Date Time Status Patient Status [ADT] Stat ADT 04/04/18 15:00 Active CIWAA Assessment [RC] Q4H Care 04/04/18 16:09 Active Cardiac Monitoring [RC] Q8H Care 04/04/18 16:09 Active EKG Documentation Completion [RC] STAT Care 04/04/18 14:00 Active Intake and Output [RC] Q12H Care 04/04/18 16:09 Active Oxygen Therapy [RC] PRN Care 04/04/18 16:04 Active Oxygen Therapy [RC] PRN Care 04/04/18 16:09 Active Peripheral IV Care [RC] Q4H Care 04/04/18 16:09 Active RT Aerosol Therapy [RC] ASDIRECTED Care 04/04/18 16:12 Active Up With Assistance [RC] ASDIRECTED Care 04/04/18 16:09 Active VTE/DVT Education [RC] PER UNIT ROUTINE Care 04/04/18 16:04 Active VTE/DVT Education [RC] PER UNIT ROUTINE Care 04/04/18 16:09 Active Vital Signs [RC] Q1H Care 04/04/18 16:04 Active Nothing per Oral Now Diet [DIET] Diet 04/04/18 Breakfast Active CULTURE URINE [RM] Routine Lab 04/04/18 13:30 Received OSMOLALITY - URINE Stat Lab 04/04/18 Ordered Albuterol/Ipratropium [DuoNeb 3.0-0.5 MG/3 ML] Med 04/04/18 16:09 Active 3 ml NEB Q4HRRT PRN Enoxaparin [Lovenox] Med 04/04/18 16:15 Active 40 mg SUBCUT Q24H Folic Acid Med 04/04/18 16:15 Active 1 mg SUBCUT DAILY LORazepam [Ativan] Med 04/04/18 16:09 Active See Protocol IM Q4H PRN MVI, Adult with Vitamin K [Infuvite Adult] 10 ml Med 04/04/18 14:01 Active Thiamine [Vitamin B-1] 100 mg Folic Acid 1 mg Potassium Chloride 40 meq Sodium Chloride 0.9% [Normal Saline] 1,000 ml IV ONETIME Magnesium Sulfate/Water [Magnesium Sulfate 4 GM in Med 04/04/18 17:03 Ordered Water 100 ML] 4 gm Premix Bag 1 bag IV ONETIME Morphine Med 04/04/18 16:09 Active 2 mg IVPUSH Q2H PRN Nicotine [Habitrol] Med 04/04/18 17:15 Ordered 14 mg TRDERM DAILY Ondansetron [Zofran] Med 04/04/18 16:09 Active 4 mg IVPUSH Q4H PRN Pantoprazole [ProTONIX IV] Med 04/04/18 16:15 Active 40 mg IVPUSH DAILY Sodium Chloride 0.9% [Saline Flush] Med 04/04/18 13:09 Active 10 ml FLUSH ASDIRECTED PRN Sodium Chloride 0.9% [Saline Flush] Med 04/04/18 16:09 Active 10 ml FLUSH ASDIRECTED PRN Sodium Chloride 0.9% [Saline Flush] Med 04/04/18 13:09 Active 2.5 ml FLUSH ASDIRECTED PRN Sodium Chloride 0.9% [Saline Flush] Med 04/04/18 16:09 Active 2.5 ml FLUSH ASDIRECTED PRN Thiamine [Vitamin B-1] Med 04/04/18 16:15 Active 100 mg IV DAILY cefTRIAXone [Rocephin] 1 gm Med 04/04/18 16:45 Active Sodium Chloride 0.9% [Normal Saline] 50 ml IV Q24H Peripheral IV Insertion Adult [OM.PC] Routine Oth 04/04/18 16:09 Ordered Saline Lock Insert [OM.PC] Routine Oth 04/04/18 16:09 Ordered Saline Lock Insert [OM.PC] Stat Oth 04/04/18 13:09 Ordered Resuscitation Status Routine Resus Stat 04/04/18 16:04 Ordered Medication Orders Albuterol/Ipratropium (Duoneb 3.0-0.5 Mg/3 Ml) 3 ml NEB Q4HRRT PRN PRN Reason: Shortness Of Breath/wheezing Enoxaparin Sodium (Lovenox) 40 mg SUBCUT Q24H DWAYNE Folic Acid (Folic Acid) 1 mg SUBCUT DAILY DWAYNE Multivitamins/Minerals 10 ml/Thiamine HCl 100 mg/ Folic Acid 1 mg/ Potassium Chloride 40 meq/ Sodium Chloride 1,031.2 mls @ 250 mls/hr IV ONETIME ONE Stop: 04/04/18 18:08 Last Admin: 04/04/18 14:39 Dose: 250 mls/hr Ceftriaxone Sodium 1 gm/ (Sodium Chloride) 50 mls @ 100 mls/hr IV Q24H DWAYNE Lorazepam (Ativan) 0 mg IM Q4H PRN; Protocol PRN Reason: Agitation Morphine Sulfate (Morphine) 2 mg IVPUSH Q2H PRN PRN Reason: Pain (severe 7-10) Stop: 04/05/18 16:10 Ondansetron HCl (Zofran) 4 mg IVPUSH Q4H PRN PRN Reason: Nausea/Vomiting Pantoprazole Sodium (Protonix Iv) 40 mg IVPUSH DAILY DWAYNE Sodium Chloride (Saline Flush) 10 ml FLUSH ASDIRECTED PRN PRN Reason: Keep Vein Open Last Admin: 04/04/18 13:29 Dose: 10 ml Sodium Chloride (Saline Flush) 2.5 ml FLUSH ASDIRECTED PRN PRN Reason: Keep Vein Open Last Admin: 04/04/18 13:29 Dose: 2.5 ml Sodium Chloride (Saline Flush) 10 ml FLUSH ASDIRECTED PRN PRN Reason: Keep Vein Open Sodium Chloride (Saline Flush) 2.5 ml FLUSH ASDIRECTED PRN PRN Reason: Keep Vein Open Thiamine HCl (Vitamin B-1) 100 mg IV DAILY [facility] Assessment/Plan Comment:: This is a 42-year-old female with a chronic medical history of alcohol use disorder presenting with signs and symptoms indicated of severe hyponatremia, hypokalemia, urinary tract infection. For the patient's severe hyponatremia of 105, a repeat serum sodium was ordered by myself which showed that her level had gone from 105 to 107 in a span of 4 hours. As such the patient does appear to be on track for a serum sodium correction of 4-6 mEq over 24 hour period. -Continue with the IV banana bag, at this point in time the patient does not require hypertonic solution of sodium. -Shall repeat a BMP in 4 hours and reassess sodium status. For the patient's hypokalemia patient has received 80 mEq oral dose along with 40 mEq IV banana bag. Hypokalemia has increased from 2.4-2.7. Continue with current management. For the patient's urinary tract infection patient has been given 1 dose of ceftriaxone continue to monitor. For the patient's alcohol use disorder, [facility] protocols have been in place Ativan is in place. -Patient to receive folate and thiamine replacement. Shall consult the eICU once they are back up and running as they're currently down.
[2018-04-04] MEDS: Pantoprazole 40 MG Vial IVPUSH SCH (17:37)
[2018-04-04] MEDS: Nicotine 14 MG/24 Hr Patch TRDERM SCH (17:42)
[2018-04-04] MEDS ORDERED: metroNIDAZOLE 250 MG Tab PO ONE (18:26)
[2018-04-04] MEDS ORDERED: Heparin Sodium 5,000 Units/ML Vial SUBCUT SCH (18:45)
[2018-04-04] MEDS ORDERED: Sodium Chloride 0.9% 1,000 ML IV SCH (18:45)
[2018-04-04] MEDS ORDERED: cefTRIAXone 2 GM in Premix Bag 1 BAG IV SCH (18:45)
[2018-04-04] MEDS: LORazepam 2 MG/ML SDV IVPUSH PRN (23:36)
[2018-04-05] MEDS ORDERED: Potassium Chloride 10% 20 MEQ/15 ML Soln 30 ML UD Cup PO ONE ×4 (00:07→21:51)
[2018-04-05] MEDS: Pantoprazole 40 MG Vial IVPUSH SCH (08:03)
[2018-04-05] MEDS: Folic Acid 50 MG/10 ML MDV SUBCUT SCH (08:03)
[2018-04-05] MEDS: Heparin Sodium 5,000 Units/ML Vial SUBCUT SCH ×2 (08:03→16:31)
[2018-04-05] MEDS: Thiamine 200 MG/2 ML MDV IV SCH (08:04)
[2018-04-05] MEDS ORDERED: Heparin Sodium 5,000 Units/ML Vial IVPUSH SCH (09:00)
[2018-04-05] MEDS: Venlafaxine 75 MG Cap.ER PO SCH ×3 (09:20→16:31)
--- NOTE | 2018-04-05 09:59 | PCM.PN ---
- General Info Date of Service: 04/05/18 Subjective Update: Patient is improving, still slightly nauseated. NA improving. - Patient Data Vitals - Most Recent: Last Vital Signs Temp 36.0 C 04/05/18 08:00 Pulse 83 04/04/18 16:00 Resp 18 04/05/18 09:00 BP 87/52 L 04/05/18 09:00 Pulse Ox 93 L 04/05/18 09:00 Weight - Most Recent: 84.187 kg I&O - Last 24 Hours: Intake & Output 04/04/18 04/05/18 04/05/18 22:59 06:59 14:59 Intake Total 2939 670 Output Total 800 850 Balance 2139 -180 Lab Results Last 24 Hours: Laboratory Results - last 24 hr 04/04/18 04/04/18 04/04/18 Range/Units 12:50 12:50 13:30 WBC 15.58 H (4.0-11.0) K/uL RBC 3.81 L (4.30-5.90) M/uL Hgb 12.5 (12.0-16.0) g/dL Hct 33.4 L (36.0-46.0) % MCV 87.7 (80.0-98.0) fL MCH 32.8 H (27.0-32.0) pg MCHC 37.4 H (31.0-37.0) g/dL RDW Std Deviation 42.3 (28.0-62.0) fl RDW Coeff of Sherri 13 (11.0-15.0) % Plt Count 291 (150-400) K/uL MPV 9.80 (7.40-12.00) fL Neut % (Auto) 80.2 H (48.0-80.0) % Lymph % (Auto) 12.8 L (16.0-40.0) % [place] % (Auto) 6.5 (0.0-15.0) % Eos % (Auto) 0.4 (0.0-7.0) % Baso % (Auto) 0.1 (0.0-1.5) % Neut # (Auto) 12.5 H (1.4-5.7) K/uL Lymph # (Auto) 2.0 (0.6-2.4) K/uL [place] # (Auto) 1.0 H (0.0-0.8) K/uL Eos # (Auto) 0.1 (0.0-0.7) K/uL Baso # (Auto) 0.0 (0.0-0.1) K/uL Nucleated RBC % 0.0 /100WBC Nucleated RBCs # 0 K/uL INR Sodium 105 L* (136-145) mmol/L Potassium 2.4 L* (3.5-5.1) mmol/L Chloride 65 L (98-107) mmol/L Carbon Dioxide 21.4 (21.0-32.0) mmol/L BUN 57 H (7.0-18.0) mg/dL Creatinine 2.6 H (0.6-1.0) mg/dL Est Cr Clr Drug Dosing TNP Estimated GFR (MDRD) 20.4 ml/min Glucose 126 H (74-106) mg/dL Calcium 8.6 (8.5-10.1) mg/dL Phosphorus (2.6-4.7) mg/dL Magnesium (1.8-2.4) mg/dL Total Bilirubin 0.4 (0.2-1.0) mg/dL AST 44 H (15-37) IU/L ALT 13 L (14-63) IU/L Alkaline Phosphatase 201 H (46-116) U/L Creatine Kinase (26-308) U/L Total Protein 7.3 (6.4-8.2) g/dL Albumin 2.7 L (3.4-5.0) g/dL Globulin 4.6 H (2.0-3.5) g/dL Albumin/Globulin Ratio 0.6 L (1.3-2.8) Lipase 286 (73-393) U/L Urine Color YELLOW Urine Appearance SLT CLOUDY Urine pH 6.0 (5.0-8.0) Ur Specific [place] 1.010 (1.001-1.035) Urine Protein 30 (NEGATIVE) mg/dL Urine Glucose (UA) NEGATIVE (NEGATIVE) mg/dL Urine Ketones NEGATIVE (NEGATIVE) mg/dL Urine Occult Blood LARGE H (NEGATIVE) Urine Nitrite NEGATIVE (NEGATIVE) Urine Bilirubin NEGATIVE (NEGATIVE) Urine Urobilinogen 0.2 (<2.0) EU/dL Ur Leukocyte Esterase MODERATE (NEGATIVE) Urine RBC 10-15 (0-2/HPF) Urine WBC 15-20 (0-5/HPF) Ur Epithelial Cells MODERATE (NONE-FEW) Urine Bacteria 1+ H (NEGATIVE) Urine Trichomonas PRESENT (NEGATIVE) Urine HCG, Qual (NEGATIVE) Ethyl Alcohol mg/dL 04/04/18 04/04/18 04/04/18 Range/Units 13:30 13:56 15:52 WBC (4.0-11.0) K/uL RBC (4.30-5.90) M/uL Hgb (12.0-16.0) g/dL Hct (36.0-46.0) % MCV (80.0-98.0) fL MCH (27.0-32.0) pg MCHC (31.0-37.0) g/dL RDW Std Deviation (28.0-62.0) fl RDW Coeff of Sherri (11.0-15.0) % Plt Count (150-400) K/uL MPV (7.40-12.00) fL Neut % (Auto) (48.0-80.0) % Lymph % (Auto) (16.0-40.0) % [place] % (Auto) (0.0-15.0) % Eos % (Auto) (0.0-7.0) % Baso % (Auto) (0.0-1.5) % Neut # (Auto) (1.4-5.7) K/uL Lymph # (Auto) (0.6-2.4) K/uL [place] # (Auto) (0.0-0.8) K/uL Eos # (Auto) (0.0-0.7) K/uL Baso # (Auto) (0.0-0.1) K/uL Nucleated RBC % /100WBC Nucleated RBCs # K/uL INR Sodium 107 L* (136-145) mmol/L Potassium 2.7 L (3.5-5.1) mmol/L Chloride 70 L (98-107) mmol/L Carbon Dioxide 22.6 (21.0-32.0) mmol/L BUN 57 H (7.0-18.0) mg/dL Creatinine 2.3 H (0.6-1.0) mg/dL Est Cr Clr Drug Dosing TNP Estimated GFR (MDRD) 23.5 ml/min Glucose 119 H (74-106) mg/dL Calcium 8.3 L (8.5-10.1) mg/dL Phosphorus (2.6-4.7) mg/dL Magnesium (1.8-2.4) mg/dL Total Bilirubin (0.2-1.0) mg/dL AST (15-37) IU/L ALT (14-63) IU/L Alkaline Phosphatase (46-116) U/L Creatine Kinase (26-308) U/L Total Protein (6.4-8.2) g/dL Albumin (3.4-5.0) g/dL Globulin (2.0-3.5) g/dL Albumin/Globulin Ratio (1.3-2.8) Lipase (73-393) U/L Urine Color Urine Appearance Urine pH (5.0-8.0) Ur Specific [place] (1.001-1.035) Urine Protein (NEGATIVE) mg/dL Urine Glucose (UA) (NEGATIVE) mg/dL Urine Ketones (NEGATIVE) mg/dL Urine Occult Blood (NEGATIVE) Urine Nitrite (NEGATIVE) Urine Bilirubin (NEGATIVE) Urine Urobilinogen (<2.0) EU/dL Ur Leukocyte Esterase (NEGATIVE) Urine RBC (0-2/HPF) Urine WBC (0-5/HPF) Ur Epithelial Cells (NONE-FEW) Urine Bacteria (NEGATIVE) Urine Trichomonas (NEGATIVE) Urine HCG, Qual NEGATIVE (NEGATIVE) Ethyl Alcohol <3 mg/dL 04/04/18 04/04/18 04/04/18 Range/Units 15:54 19:10 19:10 WBC (4.0-11.0) K/uL RBC (4.30-5.90) M/uL Hgb (12.0-16.0) g/dL Hct (36.0-46.0) % MCV (80.0-98.0) fL MCH (27.0-32.0) pg MCHC (31.0-37.0) g/dL RDW Std Deviation (28.0-62.0) fl RDW Coeff of Sherri (11.0-15.0) % Plt Count (150-400) K/uL MPV (7.40-12.00) fL Neut % (Auto) (48.0-80.0) % Lymph % (Auto) (16.0-40.0) % [place] % (Auto) (0.0-15.0) % Eos % (Auto) (0.0-7.0) % Baso % (Auto) (0.0-1.5) % Neut # (Auto) (1.4-5.7) K/uL Lymph # (Auto) (0.6-2.4) K/uL [place] # (Auto) (0.0-0.8) K/uL Eos # (Auto) (0.0-0.7) K/uL Baso # (Auto) (0.0-0.1) K/uL Nucleated RBC % /100WBC Nucleated RBCs # K/uL INR 1.12 Sodium 109 L* (136-145) mmol/L Potassium 2.6 L (3.5-5.1) mmol/L Chloride 75 L (98-107) mmol/L Carbon Dioxide 23.0 (21.0-32.0) mmol/L BUN 54 H (7.0-18.0) mg/dL Creatinine 1.9 H (0.6-1.0) mg/dL Est Cr Clr Drug Dosing 36.84 Estimated GFR (MDRD) 29.3 ml/min Glucose 102 (74-106) mg/dL Calcium 7.8 L (8.5-10.1) mg/dL Phosphorus 3.7 (2.6-4.7) mg/dL Magnesium 1.7 L (1.8-2.4) mg/dL Total Bilirubin (0.2-1.0) mg/dL AST (15-37) IU/L ALT (14-63) IU/L Alkaline Phosphatase (46-116) U/L Creatine Kinase 38 (26-308) U/L Total Protein (6.4-8.2) g/dL Albumin (3.4-5.0) g/dL Globulin (2.0-3.5) g/dL Albumin/Globulin Ratio (1.3-2.8) Lipase (73-393) U/L Urine Color Urine Appearance Urine pH (5.0-8.0) Ur Specific [place] (1.001-1.035) Urine Protein (NEGATIVE) mg/dL Urine Glucose (UA) (NEGATIVE) mg/dL Urine Ketones (NEGATIVE) mg/dL Urine Occult Blood (NEGATIVE) Urine Nitrite (NEGATIVE) Urine Bilirubin (NEGATIVE) Urine Urobilinogen (<2.0) EU/dL Ur Leukocyte Esterase (NEGATIVE) Urine RBC (0-2/HPF) Urine WBC (0-5/HPF) Ur Epithelial Cells (NONE-FEW) Urine Bacteria (NEGATIVE) Urine Trichomonas (NEGATIVE) Urine HCG, Qual (NEGATIVE) Ethyl Alcohol mg/dL 04/04/18 04/05/18 04/05/18 Range/Units 23:02 03:07 03:07 WBC 10.64 (4.0-11.0) K/uL RBC 3.66 L (4.30-5.90) M/uL Hgb 12.1 (12.0-16.0) g/dL Hct 32.6 L (36.0-46.0) % MCV 89.1 (80.0-98.0) fL MCH 33.1 H (27.0-32.0) pg MCHC 37.1 H (31.0-37.0) g/dL RDW Std Deviation 42.4 (28.0-62.0) fl RDW Coeff of Sherri 13 (11.0-15.0) % Plt Count 264 (150-400) K/uL MPV 9.60 (7.40-12.00) fL Neut % (Auto) 69.2 (48.0-80.0) % Lymph % (Auto) 23.6 (16.0-40.0) % [place] % (Auto) 6.2 (0.0-15.0) % Eos % (Auto) 0.8 (0.0-7.0) % Baso % (Auto) 0.2 (0.0-1.5) % Neut # (Auto) 7.4 H (1.4-5.7) K/uL Lymph # (Auto) 2.5 H (0.6-2.4) K/uL [place] # (Auto) 0.7 (0.0-0.8) K/uL Eos # (Auto) 0.1 (0.0-0.7) K/uL Baso # (Auto) 0.0 (0.0-0.1) K/uL Nucleated RBC % 0.0 /100WBC Nucleated RBCs # 0 K/uL INR Sodium 110 L* 111 L* (136-145) mmol/L Potassium 2.8 L 3.0 L (3.5-5.1) mmol/L Chloride 75 L 78 L (98-107) mmol/L Carbon Dioxide 22.2 22.7 (21.0-32.0) mmol/L BUN 50 H 49 H (7.0-18.0) mg/dL Creatinine 1.7 H 1.4 H (0.6-1.0) mg/dL Est Cr Clr Drug Dosing 41.18 50.00 Estimated GFR (MDRD) 33.3 41.6 ml/min Glucose 113 H 106 (74-106) mg/dL Calcium 8.2 L 8.7 (8.5-10.1) mg/dL Phosphorus 3.1 (2.6-4.7) mg/dL Magnesium 3.5 H (1.8-2.4) mg/dL Total Bilirubin (0.2-1.0) mg/dL AST (15-37) IU/L ALT (14-63) IU/L Alkaline Phosphatase (46-116) U/L Creatine Kinase (26-308) U/L Total Protein (6.4-8.2) g/dL Albumin (3.4-5.0) g/dL Globulin (2.0-3.5) g/dL Albumin/Globulin Ratio (1.3-2.8) Lipase (73-393) U/L Urine Color Urine Appearance Urine pH (5.0-8.0) Ur Specific [place] (1.001-1.035) Urine Protein (NEGATIVE) mg/dL Urine Glucose (UA) (NEGATIVE) mg/dL Urine Ketones (NEGATIVE) mg/dL Urine Occult Blood (NEGATIVE) Urine Nitrite (NEGATIVE) Urine Bilirubin (NEGATIVE) Urine Urobilinogen (<2.0) EU/dL Ur Leukocyte Esterase (NEGATIVE) Urine RBC (0-2/HPF) Urine WBC (0-5/HPF) Ur Epithelial Cells (NONE-FEW) Urine Bacteria (NEGATIVE) Urine Trichomonas (NEGATIVE) Urine HCG, Qual (NEGATIVE) Ethyl Alcohol mg/dL 04/05/18 Range/Units 06:53 WBC (4.0-11.0) K/uL RBC (4.30-5.90) M/uL Hgb (12.0-16.0) g/dL Hct (36.0-46.0) % MCV (80.0-98.0) fL MCH (27.0-32.0) pg MCHC (31.0-37.0) g/dL RDW Std Deviation (28.0-62.0) fl RDW Coeff of Sherri (11.0-15.0) % Plt Count (150-400) K/uL MPV (7.40-12.00) fL Neut % (Auto) (48.0-80.0) % Lymph % (Auto) (16.0-40.0) % [place] % (Auto) (0.0-15.0) % Eos % (Auto) (0.0-7.0) % Baso % (Auto) (0.0-1.5) % Neut # (Auto) (1.4-5.7) K/uL Lymph # (Auto) (0.6-2.4) K/uL [place] # (Auto) (0.0-0.8) K/uL Eos # (Auto) (0.0-0.7) K/uL Baso # (Auto) (0.0-0.1) K/uL Nucleated RBC % /100WBC Nucleated RBCs # K/uL INR Sodium 113 L* (136-145) mmol/L Potassium 3.4 L (3.5-5.1) mmol/L Chloride 81 L (98-107) mmol/L Carbon Dioxide 22.5 (21.0-32.0) mmol/L BUN 47 H (7.0-18.0) mg/dL Creatinine 1.2 H (0.6-1.0) mg/dL Est Cr Clr Drug Dosing 58.34 Estimated GFR (MDRD) 49.8 ml/min Glucose 113 H (74-106) mg/dL Calcium 8.9 (8.5-10.1) mg/dL Phosphorus (2.6-4.7) mg/dL Magnesium (1.8-2.4) mg/dL Total Bilirubin (0.2-1.0) mg/dL AST (15-37) IU/L ALT (14-63) IU/L Alkaline Phosphatase (46-116) U/L Creatine Kinase (26-308) U/L Total Protein (6.4-8.2) g/dL Albumin (3.4-5.0) g/dL Globulin (2.0-3.5) g/dL Albumin/Globulin Ratio (1.3-2.8) Lipase (73-393) U/L Urine Color Urine Appearance Urine pH (5.0-8.0) Ur Specific [place] (1.001-1.035) Urine Protein (NEGATIVE) mg/dL Urine Glucose (UA) (NEGATIVE) mg/dL Urine Ketones (NEGATIVE) mg/dL Urine Occult Blood (NEGATIVE) Urine Nitrite (NEGATIVE) Urine Bilirubin (NEGATIVE) Urine Urobilinogen (<2.0) EU/dL Ur Leukocyte Esterase (NEGATIVE) Urine RBC (0-2/HPF) Urine WBC (0-5/HPF) Ur Epithelial Cells (NONE-FEW) Urine Bacteria (NEGATIVE) Urine Trichomonas (NEGATIVE) Urine HCG, Qual (NEGATIVE) Ethyl Alcohol mg/dL Med Orders - Current: Current Medications Albuterol/Ipratropium (Duoneb 3.0-0.5 Mg/3 Ml) 3 ml NEB Q4HRRT PRN PRN Reason: Shortness Of Breath/wheezing Folic Acid (Folic Acid) 1 mg SUBCUT DAILY [facility] Last Admin: 04/05/18 08:03 Dose: 1 mg Heparin Sodium (Porcine) (Heparin Sodium) 5,000 units SUBCUT Q8H [facility] Last Admin: 04/05/18 08:03 Dose: 5,000 units Ceftriaxone Sodium/Dextrose 2 (gm/ Premix) 50 mls @ 100 mls/hr IV Q24H [facility] Lorazepam (Ativan) 0 mg IVPUSH Q4H PRN; Protocol PRN Reason: Agitation Last Admin: 04/04/18 23:36 Dose: 1 mg Morphine Sulfate (Morphine) 2 mg IVPUSH Q2H PRN PRN Reason: Pain (severe 7-10) Stop: 04/05/18 16:10 Nicotine (Habitrol) 14 mg TRDERM Q24H [facility] Last Admin: 04/04/18 17:42 Dose: 14 mg Ondansetron HCl (Zofran) 4 mg IVPUSH Q4H PRN PRN Reason: Nausea/Vomiting Pantoprazole Sodium (Protonix Iv) 40 mg IVPUSH DAILY [facility] Last Admin: 04/05/18 08:03 Dose: 40 mg Sodium Chloride (Saline Flush) 10 ml FLUSH ASDIRECTED PRN PRN Reason: Keep Vein Open Last Admin: 04/04/18 13:29 Dose: 10 ml Sodium Chloride (Saline Flush) 2.5 ml FLUSH ASDIRECTED PRN PRN Reason: Keep Vein Open Last Admin: 04/04/18 13:29 Dose: 2.5 ml Sodium Chloride (Saline Flush) 10 ml FLUSH ASDIRECTED PRN PRN Reason: Keep Vein Open Sodium Chloride (Saline Flush) 2.5 ml FLUSH ASDIRECTED PRN PRN Reason: Keep Vein Open Thiamine HCl (Vitamin B-1) 100 mg IV DAILY [facility] Last Admin: 04/05/18 08:04 Dose: 100 mg Venlafaxine HCl (Effexor Xr) 150 mg PO DAILY [facility] Discontinued Medications Enoxaparin Sodium (Lovenox) 40 mg SUBCUT Q24H [facility] Last Admin: 04/04/18 17:37 Dose: 40 mg Heparin Sodium (Porcine) (Heparin Sodium) 5,000 units IVPUSH DAILY [facility] Heparin Sodium (Porcine) (Heparin Sodium) 5,000 units SUBCUT Q8H [facility] Sodium Chloride (Normal Saline) 1,000 mls @ 999 mls/hr IV .Bolus ONE Stop: 04/04/18 14:09 Last Admin: 04/04/18 13:27 Dose: 999 mls/hr Multivitamins/Minerals 10 ml/Thiamine HCl 100 mg/ Folic Acid 1 mg/ Potassium Chloride 40 meq/ Sodium Chloride 1,031.2 mls @ 250 mls/hr IV ONETIME ONE Stop: 04/04/18 18:08 Last Admin: 04/04/18 14:39 Dose: 250 mls/hr Ceftriaxone Sodium 1 gm/ (Sodium Chloride) 50 mls @ 100 mls/hr IV Q24H [facility] Last Admin: 04/04/18 17:41 Dose: 100 mls/hr Magnesium Sulfate 4 gm/ Premix 100 mls @ 25 mls/hr IV ONETIME ONE Stop: 04/04/18 21:02 Last Admin: 04/04/18 18:16 Dose: 25 mls/hr Sodium Chloride (Normal Saline) 1,000 mls @ 125 mls/hr IV ASDIRECTED [facility] Last Admin: 04/04/18 19:34 Dose: 125 mls/hr Ceftriaxone Sodium/Dextrose 2 (gm/ Premix) 50 mls @ 100 mls/hr IV Q24H [facility] Potassium Chloride 40 meq/ (Dextrose/Water) 520 mls @ 125 mls/hr IV ONETIME ONE Stop: 04/05/18 00:13 Last Admin: 04/04/18 20:37 Dose: Not Given Potassium Chloride 40 meq/ (Dextrose/Water) 520 mls @ 125 mls/hr IV ONETIME ONE Stop: 04/05/18 00:39 Last Admin: 04/04/18 20:38 Dose: 125 mls/hr Lorazepam (Ativan) 0 mg IM Q4H PRN; Protocol PRN Reason: Agitation Metronidazole (Metronidazole) 2,000 mg PO NOW ONE Stop: 04/04/18 18:27 Last Admin: 04/04/18 18:54 Dose: 2,000 mg Ondansetron HCl (Zofran) 4 mg IVPUSH ONETIME ONE Stop: 04/04/18 13:10 Last Admin: 04/04/18 13:29 Dose: 4 mg Potassium Chloride (Klor-Con M20) 80 meq PO ONETIME ONE Stop: 04/04/18 14:01 Last Admin: 04/04/18 14:34 Dose: 80 meq Potassium Chloride (Potassium Chloride) 40 meq PO ONETIME ONE Stop: 04/05/18 00:08 Last Admin: 04/05/18 00:14 Dose: 40 meq Potassium Chloride (Potassium Chloride) 40 meq PO ONETIME ONE Stop: 04/05/18 03:41 Last Admin: 04/05/18 04:58 Dose: 40 meq Potassium Chloride (Potassium Chloride) 40 meq PO ONETIME ONE Stop: 04/05/18 07:22 Last Admin: 04/05/18 08:03 Dose: 40 meq - Exam General: Alert, Oriented, Cooperative, Mild Distress Lungs: Normal Respiratory Effort Cardiovascular: Regular Rhythm GI/Abdominal Exam: Tender Extremities: Normal Inspection - Problem List & Annotations (1) Alcoholic liver disease, unspecified SNOMED Code(s): 56385549 Code(s): K70.9 - ALCOHOLIC LIVER DISEASE, UNSPECIFIED Status: Acute Current Visit: Yes (2) Hypokalemia SNOMED Code(s): 75303829 Code(s): E87.6 - HYPOKALEMIA Status: Acute Current Visit: Yes (3) Hyponatremia SNOMED Code(s): 06385442 Code(s): E87.1 - HYPO-OSMOLALITY AND HYPONATREMIA Status: Acute Current Visit: Yes (4) UTI (urinary tract infection) SNOMED Code(s): 83832000 Code(s): N39.0 - URINARY TRACT INFECTION, SITE NOT SPECIFIED Status: Acute Current Visit: Yes - Problem List Review Problem List Initiated/Reviewed/Updated: Yes - My Orders Last 24 Hours: My Active Orders 04/04/18 13:30 CULTURE URINE [RM] Routine 04/04/18 16:04 Oxygen Therapy [RC] PRN Vital Signs [RC] Q1H Resuscitation Status Routine 04/04/18 16:09 CIWAA Assessment [RC] Q4H Cardiac Monitoring [RC] Q8H Intake and Output [RC] Q12H Oxygen Therapy [RC] PRN Up With Assistance [RC] ASDIRECTED VTE/DVT Education [RC] PER UNIT ROUTINE Albuterol/Ipratropium [DuoNeb 3.0-0.5 MG/3 ML] 3 ml NEB Q4HRRT PRN Morphine 2 mg IVPUSH Q2H PRN Ondansetron [Zofran] 4 mg IVPUSH Q4H PRN Sodium Chloride 0.9% [Saline Flush] 10 ml FLUSH ASDIRECTED PRN Sodium Chloride 0.9% [Saline Flush] 2.5 ml FLUSH ASDIRECTED PRN Peripheral IV Insertion Adult [OM.PC] Routine Saline Lock Insert [OM.PC] Routine 04/04/18 16:12 RT Aerosol Therapy [RC] ASDIRECTED 04/04/18 16:15 Folic Acid 1 mg SUBCUT DAILY Pantoprazole [ProTONIX IV] 40 mg IVPUSH DAILY Thiamine [Vitamin B-1] 100 mg IV DAILY 04/04/18 17:05 OSMOLALITY - URINE Stat 04/04/18 17:15 Nicotine [Habitrol] 14 mg TRDERM Q24H 04/04/18 Dinner Regular Diet [DIET] 04/05/18 09:00 Abdomen Comp [US] Routine Heparin Sodium 5,000 units SUBCUT Q8H Venlafaxine [Effexor XR] 150 mg PO DAILY 04/05/18 09:58 PICC Line Insertion [CR] Routine 04/05/18 11:00 BASIC METABOLIC PANEL,BMP [CHEM] Q4H 04/05/18 15:00 BASIC METABOLIC PANEL,BMP [CHEM] Q4H 04/05/18 18:00 cefTRIAXone [Rocephin in Dextrose,Iso-Osm 2 GM/50 ML] 2 gm Premix Bag 1 bag IV Q24H 04/05/18 Breakfast NPO After Midnight [Nothing per Oral After Midnight Diet] [DIET] - Plan Plan:: This is a 42-year-old female with a chronic medical history of alcohol use disorder presenting with signs and symptoms indicated of severe hyponatremia, hypokalemia, urinary tract infection. For the patient's severe hyponatremia of at 113. Fluids have been turned off. NA correcting on its on. Continue to moniter BMP q4h till NA at 125. For the patient's hypokalemia patient has received 80 mEq oral dose along with 40 mEq IV banana bag. Hypokalemia has increased from 2.4 to 3.4 Continue with current management. For the patient's urinary tract infection patient has been given 1 dose of ceftriaxone continue to monitor. For the patient's alcohol use disorder, [facility] protocols have been in place Ativan is in place. -Patient to receive folate and thiamine replacement. -U/S of abdomen today for assessment of ascities Shall consult the eICU once they are back up and running as they're currently down.
--- NOTE | 2018-04-05 10:49 | US ---
EXAMINATION: Abdominal ultrasound HISTORY: Ascites COMPARISON: None TECHNIQUE: Grayscale, spectral and color Doppler imaging obtained of the abdomen FINDINGS: The pancreas is not well characterized. The liver is moderately increased in generalized ec hotexture without a focal hepatic mass. The gallbladder wall thickness is normal. No pericholecystic fluid. Common bile duct measures 5 mm. The right kidney measures at least 10.9 cm and the left kidney measures at least 11.3 cm [id number] without evidence of hydronephrosis. The spleen appears normal . No abdominal ascites identified. Unable to optimally visualize the aorta for IVC. IMPRESSION: 1. No abdominal ascites identified. 2. Moderate fatty infiltration of the liver versus hepatocellular disease.
[2018-04-05 16:00] LABS: CHLORIDE,CL 85 mmol/L (98-107)
[2018-04-05 16:04] LABS: SODIUM,NA 118 mmol/L (136-145)
[2018-04-05] MEDS: Nicotine 14 MG/24 Hr Patch TRDERM SCH (16:32)
[2018-04-05] MEDS: cefTRIAXone 2 GM in Premix Bag 1 BAG IV SCH (17:44)
[2018-04-05 21:07] LABS: CHLORIDE,CL 86 mmol/L (98-107); SODIUM,NA 121 mmol/L (136-145)
[2018-04-05] MEDS ORDERED: Dextrose 5% in Water 1,000 ML IV SCH (22:00)
[2018-04-05] MEDS: LORazepam 2 MG/ML SDV IVPUSH PRN (23:15)
[2018-04-05 23:48] LABS: CHLORIDE,CL 87 mmol/L (98-107); SODIUM,NA 123 mmol/L (136-145)
[2018-04-06] MEDS: Heparin Sodium 5,000 Units/ML Vial SUBCUT SCH ×3 (00:30→16:51)
[2018-04-06] MEDS ORDERED: DESMOPRESSIN IV ONE ×2 (00:40)
[2018-04-06] MEDS ORDERED: DEXTROSE 5% IV ONE ×2 (00:40)
[2018-04-06] MEDS ORDERED: WATER IV ONE ×2 (00:40)
[2018-04-06 03:46] LABS: CHLORIDE,CL 87 mmol/L (98-107); SODIUM,NA 123 mmol/L (136-145)
[2018-04-06] MEDS ORDERED: Heparin Sodium 5,000 Units/ML Vial SUBCUT SCH (07:00)
[2018-04-06 07:48] LABS: CHLORIDE,CL 88 mmol/L (98-107); SODIUM,NA 124 mmol/L (136-145)
[2018-04-06] MEDS: Acetaminophen 325 MG Tab PO PRN ×2 (09:53→18:38)
[2018-04-06] MEDS: Folic Acid 50 MG/10 ML MDV SUBCUT SCH (09:54)
[2018-04-06] MEDS: Pantoprazole 40 MG Vial IVPUSH SCH (09:54)
[2018-04-06] MEDS: Thiamine 200 MG/2 ML MDV IV SCH (09:56)
[2018-04-06] MEDS: LORazepam 2 MG/ML SDV IVPUSH PRN (09:56)
--- NOTE | 2018-04-06 10:40 | PCM.PN ---
- General Info Date of Service: 04/06/18 Subjective Update: Patient is continuing to improve, she is able to tolerate a regular diet, she is however complaining of some mild anxiety and agitation and is requesting an Ativan for alleviation of her symptoms. She is also still continue to complain of musculoskeletal pain likely secondary to her hypokalemia and electrolyte dysfunction. - Patient Data Vitals - Most Recent: Last Vital Signs Temp 36.6 C 04/06/18 08:00 Pulse 83 04/04/18 16:00 Resp 20 04/06/18 10:00 BP 96/53 L 04/06/18 10:00 Pulse Ox 95 04/06/18 10:00 Weight - Most Recent: 84.187 kg I&O - Last 24 Hours: Intake & Output 04/05/18 04/06/18 04/06/18 22:59 06:59 14:59 Intake Total 550 1050 Output Total 550 600 Balance 0 450 Lab Results Last 24 Hours: Laboratory Results - last 24 hr 04/04/18 04/05/18 04/05/18 Range/Units 17:05 11:28 15:30 WBC (4.0-11.0) K/uL RBC (4.30-5.90) M/uL Hgb (12.0-16.0) g/dL Hct (36.0-46.0) % MCV (80.0-98.0) fL MCH (27.0-32.0) pg MCHC (31.0-37.0) g/dL RDW Std Deviation (28.0-62.0) fl RDW Coeff of Sherri (11.0-15.0) % Plt Count (150-400) K/uL MPV (7.40-12.00) fL Neut % (Auto) (48.0-80.0) % Lymph % (Auto) (16.0-40.0) % [place] % (Auto) (0.0-15.0) % Eos % (Auto) (0.0-7.0) % Baso % (Auto) (0.0-1.5) % Neut # (Auto) (1.4-5.7) K/uL Lymph # (Auto) (0.6-2.4) K/uL [place] # (Auto) (0.0-0.8) K/uL Eos # (Auto) (0.0-0.7) K/uL Baso # (Auto) (0.0-0.1) K/uL Nucleated RBC % /100WBC Nucleated RBCs # K/uL Sodium 117 L* 118 L* (136-145) mmol/L Potassium 3.5 3.6 (3.5-5.1) mmol/L Chloride 84 L 85 L (98-107) mmol/L Carbon Dioxide 22.5 22.3 (21.0-32.0) mmol/L BUN 45 H 40 H (7.0-18.0) mg/dL Creatinine 1.1 H 1.0 (0.6-1.0) mg/dL Est Cr Clr Drug Dosing 63.64 70.01 mL/min Estimated GFR (MDRD) 55.0 > 60.0 ml/min Glucose 116 H 115 H (74-106) mg/dL Calcium 9.3 9.2 (8.5-10.1) mg/dL Urine Osmolality 183 L (300-900) mosm/kg 04/05/18 04/05/18 04/06/18 Range/Units 19:30 23:30 03:28 WBC 11.03 H (4.0-11.0) K/uL RBC 3.42 L (4.30-5.90) M/uL Hgb 11.6 L (12.0-16.0) g/dL Hct 31.5 L (36.0-46.0) % MCV 92.1 (80.0-98.0) fL MCH 33.9 H (27.0-32.0) pg MCHC 36.8 (31.0-37.0) g/dL RDW Std Deviation 45.3 (28.0-62.0) fl RDW Coeff of Sherri 14 (11.0-15.0) % Plt Count 222 (150-400) K/uL MPV 9.40 (7.40-12.00) fL Neut % (Auto) 68.5 (48.0-80.0) % Lymph % (Auto) 24.9 (16.0-40.0) % [place] % (Auto) 5.6 (0.0-15.0) % Eos % (Auto) 0.7 (0.0-7.0) % Baso % (Auto) 0.3 (0.0-1.5) % Neut # (Auto) 7.6 H (1.4-5.7) K/uL Lymph # (Auto) 2.8 H (0.6-2.4) K/uL [place] # (Auto) 0.6 (0.0-0.8) K/uL Eos # (Auto) 0.1 (0.0-0.7) K/uL Baso # (Auto) 0.0 (0.0-0.1) K/uL Nucleated RBC % 0.0 /100WBC Nucleated RBCs # 0 K/uL Sodium 121 L 123 L (136-145) mmol/L Potassium 3.5 3.4 L (3.5-5.1) mmol/L Chloride 86 L 87 L (98-107) mmol/L Carbon Dioxide 22.7 23.2 (21.0-32.0) mmol/L BUN 35 H 33 H (7.0-18.0) mg/dL Creatinine 0.9 1.0 (0.6-1.0) mg/dL Est Cr Clr Drug Dosing 77.79 70.01 mL/min Estimated GFR (MDRD) > 60.0 > 60.0 ml/min Glucose 114 H 118 H (74-106) mg/dL Calcium 9.2 9.3 (8.5-10.1) mg/dL Urine Osmolality (300-900) mosm/kg 04/06/18 04/06/18 Range/Units 03:28 07:25 WBC (4.0-11.0) K/uL RBC (4.30-5.90) M/uL Hgb (12.0-16.0) g/dL Hct (36.0-46.0) % MCV (80.0-98.0) fL MCH (27.0-32.0) pg MCHC (31.0-37.0) g/dL RDW Std Deviation (28.0-62.0) fl RDW Coeff of Sherri (11.0-15.0) % Plt Count (150-400) K/uL MPV (7.40-12.00) fL Neut % (Auto) (48.0-80.0) % Lymph % (Auto) (16.0-40.0) % [place] % (Auto) (0.0-15.0) % Eos % (Auto) (0.0-7.0) % Baso % (Auto) (0.0-1.5) % Neut # (Auto) (1.4-5.7) K/uL Lymph # (Auto) (0.6-2.4) K/uL [place] # (Auto) (0.0-0.8) K/uL Eos # (Auto) (0.0-0.7) K/uL Baso # (Auto) (0.0-0.1) K/uL Nucleated RBC % /100WBC Nucleated RBCs # K/uL Sodium 123 L 124 L (136-145) mmol/L Potassium 3.6 3.4 L (3.5-5.1) mmol/L Chloride 87 L 88 L (98-107) mmol/L Carbon Dioxide 22.9 26.6 (21.0-32.0) mmol/L BUN 29 H 26 H (7.0-18.0) mg/dL Creatinine 0.8 0.8 (0.6-1.0) mg/dL Est Cr Clr Drug Dosing 87.51 87.51 mL/min Estimated GFR (MDRD) > 60.0 > 60.0 ml/min Glucose 114 H 111 H (74-106) mg/dL Calcium 9.0 9.2 (8.5-10.1) mg/dL Urine Osmolality (300-900) mosm/kg Kunal Results Last 24 Hours: Microbiology 04/04/18 13:30 Urine Culture - Preliminary Urine, Clean Catch Klebsiella Pneumoniae Citrobacter Youngae Med Orders - Current: Current Medications Acetaminophen (Tylenol) 650 mg PO Q6H PRN PRN Reason: Pain (moderate 4-6) Last Admin: 04/06/18 09:53 Dose: 650 mg Albuterol/Ipratropium (Duoneb 3.0-0.5 Mg/3 Ml) 3 ml NEB Q4HRRT PRN PRN Reason: Shortness Of Breath/wheezing Folic Acid (Folic Acid) 1 mg SUBCUT DAILY [facility] Last Admin: 04/06/18 09:54 Dose: 1 mg Heparin Sodium (Porcine) (Heparin Sodium) 5,000 units SUBCUT Q8H [facility] Last Admin: 09/13/18 09:55 Dose: 5,000 units Ceftriaxone Sodium/Dextrose 2 (gm/ Premix) 50 mls @ 100 mls/hr IV Q24H [facility] Last Admin: 04/05/18 17:44 Dose: 100 mls/hr Dextrose/Water (Dextrose 5% In Water) 1,000 mls @ 500 mls/hr IV ASDIRECTED [facility] Last Admin: 04/05/18 22:29 Dose: 500 mls/hr Lorazepam (Ativan) 0 mg IVPUSH Q4H PRN; Protocol PRN Reason: Agitation Last Admin: 04/06/18 09:56 Dose: 1 mg Nicotine (Habitrol) 14 mg TRDERM Q24H [facility] Last Admin: 04/05/18 16:32 Dose: 14 mg Ondansetron HCl (Zofran) 4 mg IVPUSH Q4H PRN PRN Reason: Nausea/Vomiting Pantoprazole Sodium (Protonix Iv) 40 mg IVPUSH DAILY [facility] Last Admin: 04/06/18 09:54 Dose: 40 mg Sodium Chloride (Saline Flush) 10 ml FLUSH ASDIRECTED PRN PRN Reason: Keep Vein Open Last Admin: 04/04/18 13:29 Dose: 10 ml Sodium Chloride (Saline Flush) 2.5 ml FLUSH ASDIRECTED PRN PRN Reason: Keep Vein Open Last Admin: 04/04/18 13:29 Dose: 2.5 ml Sodium Chloride (Saline Flush) 10 ml FLUSH ASDIRECTED PRN PRN Reason: Keep Vein Open Sodium Chloride (Saline Flush) 2.5 ml FLUSH ASDIRECTED PRN PRN Reason: Keep Vein Open Thiamine HCl (Vitamin B-1) 100 mg IV DAILY [facility] Last Admin: 04/06/18 09:56 Dose: 100 mg Venlafaxine HCl (Effexor Xr) 150 mg PO 1700 [facility] Last Admin: 04/05/18 16:31 Dose: 150 mg Discontinued Medications Enoxaparin Sodium (Lovenox) 40 mg SUBCUT Q24H [facility] Last Admin: 04/04/18 17:37 Dose: 40 mg Heparin Sodium (Porcine) (Heparin Sodium) 5,000 units IVPUSH DAILY [facility] Heparin Sodium (Porcine) (Heparin Sodium) 5,000 units SUBCUT Q8H [facility] Heparin Sodium (Porcine) (Heparin Sodium) 5,000 units SUBCUT Q8H [facility] Sodium Chloride (Normal Saline) 1,000 mls @ 999 mls/hr IV .Bolus ONE Stop: 04/04/18 14:09 Last Admin: 04/04/18 13:27 Dose: 999 mls/hr Multivitamins/Minerals 10 ml/Thiamine HCl 100 mg/ Folic Acid 1 mg/ Potassium Chloride 40 meq/ Sodium Chloride 1,031.2 mls @ 250 mls/hr IV ONETIME ONE Stop: 04/04/18 18:08 Last Admin: 04/04/18 14:39 Dose: 250 mls/hr Ceftriaxone Sodium 1 gm/ (Sodium Chloride) 50 mls @ 100 mls/hr IV Q24H [facility] Last Admin: 04/04/18 17:41 Dose: 100 mls/hr Magnesium Sulfate 4 gm/ Premix 100 mls @ 25 mls/hr IV ONETIME ONE Stop: 04/04/18 21:02 Last Admin: 04/04/18 18:16 Dose: 25 mls/hr Sodium Chloride (Normal Saline) 1,000 mls @ 125 mls/hr IV ASDIRECTED [facility] Last Admin: 04/04/18 19:34 Dose: 125 mls/hr Ceftriaxone Sodium/Dextrose 2 (gm/ Premix) 50 mls @ 100 mls/hr IV Q24H [facility] Potassium Chloride 40 meq/ (Dextrose/Water) 520 mls @ 125 mls/hr IV ONETIME ONE Stop: 04/05/18 00:13 Last Admin: 04/04/18 20:37 Dose: Not Given Potassium Chloride 40 meq/ (Dextrose/Water) 520 mls @ 125 mls/hr IV ONETIME ONE Stop: 04/05/18 00:39 Last Admin: 04/04/18 20:38 Dose: 125 mls/hr Potassium Chloride 40 meq/ (Dextrose/Water) 520 mls @ 100 mls/hr IV ONETIME ONE Stop: 04/05/18 17:41 Last Admin: 04/05/18 12:23 Dose: 100 mls/hr Desmopressin Acetate 2 mcg/ (Dextrose/Water) 50.5 mls @ 100 mls/hr IV ONETIME ONE Stop: 04/06/18 01:13 Last Admin: 04/06/18 00:55 Dose: 100 mls/hr Lorazepam (Ativan) 0 mg IM Q4H PRN; Protocol PRN Reason: Agitation Metronidazole (Metronidazole) 2,000 mg PO NOW ONE Stop: 04/04/18 18:27 Last Admin: 04/04/18 18:54 Dose: 2,000 mg Morphine Sulfate (Morphine) 2 mg IVPUSH Q2H PRN PRN Reason: Pain (severe 7-10) Stop: 04/05/18 16:10 Ondansetron HCl (Zofran) 4 mg IVPUSH ONETIME ONE Stop: 04/04/18 13:10 Last Admin: 04/04/18 13:29 Dose: 4 mg Potassium Chloride (Klor-Con M20) 80 meq PO ONETIME ONE Stop: 04/04/18 14:01 Last Admin: 04/04/18 14:34 Dose: 80 meq Potassium Chloride (Potassium Chloride) 40 meq PO ONETIME ONE Stop: 04/05/18 00:08 Last Admin: 04/05/18 00:14 Dose: 40 meq Potassium Chloride (Potassium Chloride) 40 meq PO ONETIME ONE Stop: 04/05/18 03:41 Last Admin: 04/05/18 04:58 Dose: 40 meq Potassium Chloride (Potassium Chloride) 40 meq PO ONETIME ONE Stop: 04/05/18 07:22 Last Admin: 04/05/18 08:03 Dose: 40 meq Potassium Chloride (Potassium Chloride) 40 meq PO ONETIME ONE Stop: 04/05/18 21:52 Last Admin: 04/05/18 22:29 Dose: 40 meq Venlafaxine HCl (Effexor Xr) 150 mg PO DAILY [facility] Last Admin: 04/05/18 10:33 Dose: Not Given - Exam General: Alert, Oriented, Cooperative, Mild Distress Lungs: Normal Respiratory Effort Cardiovascular: Regular Rate, Regular Rhythm GI/Abdominal Exam: Distended Extremities: Normal Inspection, Leg Pain Skin: Warm, Dry Neurological: No New Focal Deficit Psy/Mental Status: Alert, Normal Affect, Normal Mood - Problem List & Annotations (1) Alcoholic liver disease, unspecified SNOMED Code(s): 61397535 Code(s): K70.9 - ALCOHOLIC LIVER DISEASE, UNSPECIFIED Status: Acute Current Visit: Yes (2) Hypokalemia SNOMED Code(s): 20618891 Code(s): E87.6 - HYPOKALEMIA Status: Acute Current Visit: Yes (3) Hyponatremia SNOMED Code(s): 25887002 Code(s): E87.1 - HYPO-OSMOLALITY AND HYPONATREMIA Status: Acute Current Visit: Yes (4) UTI (urinary tract infection) SNOMED Code(s): 43044143 Code(s): N39.0 - URINARY TRACT INFECTION, SITE NOT SPECIFIED Status: Acute Current Visit: Yes - Problem List Review Problem List Initiated/Reviewed/Updated: Yes - My Orders Last 24 Hours: My Active Orders 04/05/18 09:58 PICC Line Insertion [CR] Routine 04/05/18 17:00 Venlafaxine [Effexor XR] 150 mg PO 1700 04/05/18 18:00 cefTRIAXone [Rocephin in Dextrose,Iso-Osm 2 GM/50 ML] 2 gm Premix Bag 1 bag IV Q24H 04/05/18 Dinner Regular Diet [DIET] 04/06/18 09:32 Acetaminophen [Tylenol] 650 mg PO Q6H PRN - Plan Plan:: This is a 42-year-old female with a chronic medical history of alcohol use disorder presenting with signs and symptoms indicated of severe hyponatremia, hypokalemia, urinary tract infection. For the patient's severe hyponatremia- resolving current sodium level at 124. Patient did have an acute rise in her sodium overnight it is believed that she was eating quite a lot of strawberries which resulted in a higher than anticipated and required rise in her sodium level. Fluids have been turned off. -We will get one more BMP every 4 hours if the sodium is is rising at the anticipated level then we can increase her BMPs to every 8 hours. The anticipated goal for the next 24 hours to be in the low 130s for her serum sodium level. For the patient's hypokalemia patient has received 80 mEq oral dose along with 40 mEq IV banana bag. Hypokalemia resolved Continue with current management. For the patient's urinary tract infection patient has been given 1 dose of ceftriaxone continue to monitor. For the patient's alcohol use disorder, [place] protocols have been in place Ativan is in place. -Patient to receive folate and thiamine replacement. -U/S of abdomen-indicating fatty liver disease likely secondary to alcohol consumption -Ativan as needed for anxiety and agitation.
[2018-04-06 12:17] LABS: CHLORIDE,CL 89 mmol/L (98-107); SODIUM,NA 125 mmol/L (136-145)
[2018-04-06] MEDS: Nicotine 14 MG/24 Hr Patch TRDERM SCH (16:51)
[2018-04-06] MEDS: Venlafaxine 75 MG Cap.ER PO SCH (16:57)
[2018-04-06] MEDS: cefTRIAXone 2 GM in Premix Bag 1 BAG IV SCH (17:05)
[2018-04-06] MEDS: LORazepam 1 MG Tab PO PRN (20:01)
[2018-04-06 20:41] LABS: CHLORIDE,CL 92 mmol/L (98-107); SODIUM,NA 129 mmol/L (136-145)
[2018-04-06] MEDS ORDERED: Morphine 2 MG/ML Syringe IVPUSH PRN (21:25)
[2018-04-07] MEDS: Heparin Sodium 5,000 Units/ML Vial SUBCUT SCH ×2 (00:31→09:29)
[2018-04-07] MEDS: Acetaminophen 325 MG Tab PO PRN (04:15)
[2018-04-07 04:30] LABS: CHLORIDE,CL 93 mmol/L (98-107); SODIUM,NA 131 mmol/L (136-145)
[2018-04-07] MEDS ORDERED: Potassium Chloride 10% 20 MEQ/15 ML Soln 30 ML UD Cup PO ONE (05:06)
[2018-04-07] MEDS ORDERED: Folic Acid 50 MG/10 ML MDV PO SCH (09:00)
[2018-04-07] MEDS ORDERED: Thiamine 100 MG Tab PO SCH (09:00)
[2018-04-07] MEDS ORDERED: Folic Acid 1 MG Tab PO SCH (09:00)
[2018-04-07] MEDS: Pantoprazole 40 MG Vial IVPUSH SCH (09:22)
[2018-04-07] MEDS: LORazepam 1 MG Tab PO PRN (09:23)
[2018-04-07 10:16] VITALS: BP 126/72
--- NOTE | 2018-04-07 11:19 | PCM.DCSUM1 ---
Discharge Summary - Hospital Course Diagnosis: Stroke: No - Discharge Data Discharge Disposition: Against Medical Advice 07 Condition: Undetermined - Discharge Diagnosis/Problem(s) (1) Alcoholic liver disease, unspecified SNOMED Code(s): 73531321 ICD Code: K70.9 - ALCOHOLIC LIVER DISEASE, UNSPECIFIED Status: Acute Current Visit: Yes (2) Hypokalemia SNOMED Code(s): 72571962 ICD Code: E87.6 - HYPOKALEMIA Status: Acute Current Visit: Yes (3) Hyponatremia SNOMED Code(s): 33852684 ICD Code: E87.1 - HYPO-OSMOLALITY AND HYPONATREMIA Status: Acute Current Visit: Yes (4) UTI (urinary tract infection) SNOMED Code(s): 57801543 ICD Code: N39.0 - URINARY TRACT INFECTION, SITE NOT SPECIFIED Status: Acute Current Visit: Yes - Patient Instructions Diet: Regular Diet as Tolerated, No Alcoholic Beverages Activity: As Tolerated Driving: Do Not Drive Showering/Bathing: May Shower Notify Provider of: Fever, Increased Pain, Nausea and/or Vomiting - Discharge Plan *PRESCRIPTION DRUG MONITORING PROGRAM REVIEWED*: No *COPY OF PRESCRIPTION DRUG MONITORING REPORT IN PATIENT HERMINIO: No Prescriptions/Med Rec: Ciprofloxacin [Cipro XR] 500 mg PO BID 5 Days #10 tab.er Home Medications: Home Meds Metoprolol Succinate [Toprol XL] 25 mg PO DAILY 03/28/17 [History] Venlafaxine [Effexor XR] 150 mg PO DAILY 03/28/17 [History] clonazePAM [Klonopin] 1 tab TID 12/23/17 [History] Hydrocodone/Acetaminophen [Cougar 7.5-325 Tablet] 04/04/18 [History] Ibuprofen 04/04/18 [History] Ciprofloxacin [Cipro XR] 500 mg PO BID 5 Days #10 tab.er 04/07/18 [Rx] Folic Acid 1 mg PO DAILY tablet 04/07/18 [Rx] Thiamine [Vitamin B-1] 100 mg PO DAILY tablet 04/07/18 [Rx] Patient Handouts: Steps to Quit Smoking, [id number], Alcoholic Liver Disease , Hyponatremia, [id number], Hypokalemia, Urinary Tract Infection, Adult, Alcohol Abuse and Nutrition, Finding Treatment for Addiction Forms: ED Department Discharge Referrals: PCP,None [Primary Care Provider] - John Roman MD [Physician] - - Patient Data Vitals - Most Recent: Last Vital Signs Temp 36.5 C 04/07/18 08:00 Pulse 83 04/04/18 16:00 Resp 17 04/07/18 10:00 BP 126/72 04/07/18 10:00 Pulse Ox 93 L 04/07/18 10:00 Weight - Most Recent: 80.422 kg I&O - Last 24 hours: Intake & Output 04/06/18 04/07/18 04/07/18 22:59 06:59 14:59 Intake Total 550 300 Output Total 300 800 Balance 250 -500 Lab Results - Last 24 hrs: Laboratory Results - last 24 hr 04/06/18 04/06/18 04/07/18 Range/Units 11:52 20:15 04:00 WBC (4.0-11.0) K/uL RBC (4.30-5.90) M/uL Hgb (12.0-16.0) g/dL Hct (36.0-46.0) % MCV (80.0-98.0) fL MCH (27.0-32.0) pg MCHC (31.0-37.0) g/dL RDW Std Deviation (28.0-62.0) fl RDW Coeff of Sherri (11.0-15.0) % Plt Count (150-400) K/uL MPV (7.40-12.00) fL Add Manual Diff Neutrophils % (Manual) (48.0-80.0) % Lymphocytes % (Manual) (16.0-40.0) % Monocytes % (Manual) (0.0-15.0) % Eosinophils % (Manual) (0.0-7.0) % Basophils % (Manual) (0.0-1.5) % Nucleated RBC % /100WBC Absolute Seg Neuts (1.4-5.7) Lymphocytes # (Manual) (0.6-2.4) Monocytes # (Manual) (0.0-0.8) Eosinophils # (Manual) (0.0-0.7) Basophils # (Manual) (0.0-0.1) Nucleated RBCs # K/uL Sodium 125 L 129 L 131 L (136-145) mmol/L Potassium 3.5 3.5 3.4 L (3.5-5.1) mmol/L Chloride 89 L 92 L 93 L (98-107) mmol/L Carbon Dioxide 24.0 26.5 29.4 (21.0-32.0) mmol/L BUN 22 H 16 12 (7.0-18.0) mg/dL Creatinine 0.8 0.9 0.8 (0.6-1.0) mg/dL Est Cr Clr Drug Dosing 87.51 77.79 87.51 mL/min Estimated GFR (MDRD) > 60.0 > 60.0 > 60.0 ml/min Glucose 129 H 121 H 103 (74-106) mg/dL Calcium 9.4 9.2 9.2 (8.5-10.1) mg/dL 04/07/18 Range/Units 04:00 WBC 12.90 H (4.0-11.0) K/uL RBC 3.39 L (4.30-5.90) M/uL Hgb 11.3 L (12.0-16.0) g/dL Hct 32.0 L (36.0-46.0) % MCV 94.4 (80.0-98.0) fL MCH 33.3 H (27.0-32.0) pg MCHC 35.3 (31.0-37.0) g/dL RDW Std Deviation 46.7 (28.0-62.0) fl RDW Coeff of Sherri 14 (11.0-15.0) % Plt Count 245 (150-400) K/uL MPV 9.60 (7.40-12.00) fL Add Manual Diff YES Neutrophils % (Manual) 63 (48.0-80.0) % Lymphocytes % (Manual) 31 (16.0-40.0) % Monocytes % (Manual) 3 (0.0-15.0) % Eosinophils % (Manual) 2 (0.0-7.0) % Basophils % (Manual) 1 (0.0-1.5) % Nucleated RBC % 0.0 /100WBC Absolute Seg Neuts 8.1 H (1.4-5.7) Lymphocytes # (Manual) 4.0 H (0.6-2.4) Monocytes # (Manual) 0.4 (0.0-0.8) Eosinophils # (Manual) 0.3 (0.0-0.7) Basophils # (Manual) 0.1 (0.0-0.1) Nucleated RBCs # 0 K/uL Sodium (136-145) mmol/L Potassium (3.5-5.1) mmol/L Chloride (98-107) mmol/L Carbon Dioxide (21.0-32.0) mmol/L BUN (7.0-18.0) mg/dL Creatinine (0.6-1.0) mg/dL Est Cr Clr Drug Dosing mL/min Estimated GFR (MDRD) ml/min Glucose (74-106) mg/dL Calcium (8.5-10.1) mg/dL SHEKHAR Results - Last 24 hrs: Microbiology 04/04/18 13:30 Urine Culture - Preliminary Urine, Clean Catch Klebsiella Pneumoniae Citrobacter Youngae Med Orders - Current: Current Medications Acetaminophen (Tylenol) 650 mg PO Q6H PRN PRN Reason: Pain (moderate 4-6) Last Admin: 04/07/18 04:15 Dose: 650 mg Albuterol/Ipratropium (Duoneb 3.0-0.5 Mg/3 Ml) 3 ml NEB Q4HRRT PRN PRN Reason: Shortness Of Breath/wheezing Chlordiazepoxide HCl (Librium) 25 mg PO QID [facility] Folic Acid (Folic Acid) 1 mg PO DAILY [facility] Last Admin: 04/07/18 09:22 Dose: 1 mg Heparin Sodium (Porcine) (Heparin Sodium) 5,000 units SUBCUT Q8H [facility] Last Admin: 04/07/18 09:29 Dose: 5,000 units Ceftriaxone Sodium/Dextrose 2 (gm/ Premix) 50 mls @ 100 mls/hr IV Q24H [facility] Last Admin: 04/06/18 17:05 Dose: 100 mls/hr Dextrose/Water (Dextrose 5% In Water) 1,000 mls @ 500 mls/hr IV ASDIRECTED [facility] Last Admin: 04/05/18 22:29 Dose: 500 mls/hr Lorazepam (Ativan) 0 mg IVPUSH Q4H PRN; Protocol PRN Reason: Agitation Last Admin: 04/06/18 09:56 Dose: 1 mg Lorazepam (Ativan) 0 mg PO Q4H PRN; Protocol PRN Reason: Anxiety Last Admin: 04/07/18 09:23 Dose: 1 mg Morphine Sulfate (Morphine) 2 mg IVPUSH Q2H PRN PRN Reason: Pain Last Admin: 04/06/18 21:37 Dose: 2 mg Nicotine (Habitrol) 14 mg TRDERM Q24H [facility] Last Admin: 04/06/18 16:51 Dose: 14 mg Ondansetron HCl (Zofran) 4 mg IVPUSH Q4H PRN PRN Reason: Nausea/Vomiting Pantoprazole Sodium (Protonix) 40 mg PO ACBREAKFAST [facility] Sodium Chloride (Saline Flush) 10 ml FLUSH ASDIRECTED PRN PRN Reason: Keep Vein Open Last Admin: 04/04/18 13:29 Dose: 10 ml Sodium Chloride (Saline Flush) 2.5 ml FLUSH ASDIRECTED PRN PRN Reason: Keep Vein Open Last Admin: 04/04/18 13:29 Dose: 2.5 ml Sodium Chloride (Saline Flush) 10 ml FLUSH ASDIRECTED PRN PRN Reason: Keep Vein Open Sodium Chloride (Saline Flush) 2.5 ml FLUSH ASDIRECTED PRN PRN Reason: Keep Vein Open Thiamine HCl (Vitamin B-1) 100 mg PO DAILY [facility] Last Admin: 04/07/18 09:22 Dose: 100 mg Venlafaxine HCl (Effexor Xr) 150 mg PO 1700 [facility] Last Admin: 04/06/18 16:57 Dose: 150 mg Discontinued Medications Enoxaparin Sodium (Lovenox) 40 mg SUBCUT Q24H [facility] Last Admin: 04/04/18 17:37 Dose: 40 mg Folic Acid (Folic Acid) 1 mg SUBCUT DAILY [facility] Last Admin: 04/06/18 09:54 Dose: 1 mg Folic Acid (Folic Acid) 1 mg PO DAILY [facility] Heparin Sodium (Porcine) (Heparin Sodium) 5,000 units IVPUSH DAILY [facility] Heparin Sodium (Porcine) (Heparin Sodium) 5,000 units SUBCUT Q8H [facility] Heparin Sodium (Porcine) (Heparin Sodium) 5,000 units SUBCUT Q8H [facility] Sodium Chloride (Normal Saline) 1,000 mls @ 999 mls/hr IV .Bolus ONE Stop: 04/04/18 14:09 Last Admin: 04/04/18 13:27 Dose: 999 mls/hr Multivitamins/Minerals 10 ml/Thiamine HCl 100 mg/ Folic Acid 1 mg/ Potassium Chloride 40 meq/ Sodium Chloride 1,031.2 mls @ 250 mls/hr IV ONETIME ONE Stop: 04/04/18 18:08 Last Admin: 04/04/18 14:39 Dose: 250 mls/hr Ceftriaxone Sodium 1 gm/ (Sodium Chloride) 50 mls @ 100 mls/hr IV Q24H [facility] Last Admin: 04/04/18 17:41 Dose: 100 mls/hr Magnesium Sulfate 4 gm/ Premix 100 mls @ 25 mls/hr IV ONETIME ONE Stop: 04/04/18 21:02 Last Admin: 04/04/18 18:16 Dose: 25 mls/hr Sodium Chloride (Normal Saline) 1,000 mls @ 125 mls/hr IV ASDIRECTED [facility] Last Admin: 04/04/18 19:34 Dose: 125 mls/hr Ceftriaxone Sodium/Dextrose 2 (gm/ Premix) 50 mls @ 100 mls/hr IV Q24H [facility] Potassium Chloride 40 meq/ (Dextrose/Water) 520 mls @ 125 mls/hr IV ONETIME ONE Stop: 04/05/18 00:13 Last Admin: 04/04/18 20:37 Dose: Not Given Potassium Chloride 40 meq/ (Dextrose/Water) 520 mls @ 125 mls/hr IV ONETIME ONE Stop: 04/05/18 00:39 Last Admin: 04/04/18 20:38 Dose: 125 mls/hr Potassium Chloride 40 meq/ (Dextrose/Water) 520 mls @ 100 mls/hr IV ONETIME ONE Stop: 04/05/18 17:41 Last Admin: 04/05/18 12:23 Dose: 100 mls/hr Desmopressin Acetate 2 mcg/ (Dextrose/Water) 50.5 mls @ 100 mls/hr IV ONETIME ONE Stop: 04/06/18 01:13 Last Admin: 04/06/18 00:55 Dose: 100 mls/hr Lorazepam (Ativan) 0 mg IM Q4H PRN; Protocol PRN Reason: Agitation Metronidazole (Metronidazole) 2,000 mg PO NOW ONE Stop: 04/04/18 18:27 Last Admin: 04/04/18 18:54 Dose: 2,000 mg Morphine Sulfate (Morphine) 2 mg IVPUSH Q2H PRN PRN Reason: Pain (severe 7-10) Stop: 04/05/18 16:10 Ondansetron HCl (Zofran) 4 mg IVPUSH ONETIME ONE Stop: 04/04/18 13:10 Last Admin: 04/04/18 13:29 Dose: 4 mg Pantoprazole Sodium (Protonix Iv) 40 mg IVPUSH DAILY [facility] Last Admin: 04/07/18 09:22 Dose: 40 mg Potassium Chloride (Klor-Con M20) 80 meq PO ONETIME ONE Stop: 04/04/18 14:01 Last Admin: 04/04/18 14:34 Dose: 80 meq Potassium Chloride (Potassium Chloride) 40 meq PO ONETIME ONE Stop: 04/05/18 00:08 Last Admin: 04/05/18 00:14 Dose: 40 meq Potassium Chloride (Potassium Chloride) 40 meq PO ONETIME ONE Stop: 04/05/18 03:41 Last Admin: 04/05/18 04:58 Dose: 40 meq Potassium Chloride (Potassium Chloride) 40 meq PO ONETIME ONE Stop: 04/05/18 07:22 Last Admin: 04/05/18 08:03 Dose: 40 meq Potassium Chloride (Potassium Chloride) 40 meq PO ONETIME ONE Stop: 04/05/18 21:52 Last Admin: 04/05/18 22:29 Dose: 40 meq Potassium Chloride (Potassium Chloride) 40 meq PO ONETIME ONE Stop: 04/07/18 05:07 Last Admin: 04/07/18 05:44 Dose: 40 meq Thiamine HCl (Vitamin B-1) 100 mg IV DAILY [facility] Last Admin: 04/06/18 09:56 Dose: 100 mg Venlafaxine HCl (Effexor Xr) 150 mg PO DAILY [facility] Last Admin: 04/05/18 10:33 Dose: Not Given
[2018-04-07] MEDS ORDERED: chlordiazePOXIDE 25 MG Cap PO SCH (12:00)
[2018-04-08] MEDS ORDERED: Pantoprazole 40 MG Tab.CR PO SCH (07:30)
== END 2018-04-07 11:09 | disposition left against medical advice (07) | DRG 433 ==
LOC: MW.ED 11:30 → MW.ICU 15:20
PROVIDERS: ADMIT Internal Medicine; ATTEND Internal Medicine
DX: K70.9 Alcoholic liver disease, unspecified (principal); E87.1 Hypo-osmolality and hyponatremia; N39.0 Urinary tract infection, site not specified; F10.20 Alcohol dependence, uncomplicated; E87.6 Hypokalemia; I10 Essential (primary) hypertension; F41.9 Anxiety disorder, unspecified; F32.9 Major depressive disorder, single episode, unspecified; F17.200 Nicotine dependence, unspecified, uncomplicated; Z79.899 Other long term (current) drug therapy
CPT/HCPCS: 36415; 74018; 74018-26; 76700; 76700-26; 80048; 80053; 81001; 81025; 82550; 83690; 83735; 83935; 84100; 85025; 85610; 87077; 87086; 87088; 87186; 96361; 96365; 96375; 99284; 99285-25; A9270-GY; C9113; G0480; J0696; J1644; J1650; J2060; J2270; J2405; J2597; J3411; J3475; J3480; J7040; J7050; J7060

== ENCOUNTER 2018-12-20 07:56 | Inpatient (IN) | payer OTHER ==
[2018-12-20] MEDS ORDERED: Sodium Chloride 0.9% 2.5 ML Syringe FLUSH PRN (08:13)
[2018-12-20] MEDS ORDERED: Sodium Chloride 0.9% 10 ML Syringe FLUSH PRN (08:13)
[2018-12-20] MEDS ORDERED: MVI, Adult with Vitamin K 10 ML, Thiamine 100 MG, Folic Acid 1 MG in Sodium Chloride 0.... IV ONE ×4 (08:16)
--- NOTE | 2018-12-20 08:26 | EDM.PDOC ---
ED HPI GENERAL MEDICAL PROBLEM - General Chief Complaint: General Stated Complaint: DIZZY, BLEEDING Time Seen by Provider: 12/20/18 08:03 - History of Present Illness INITIAL COMMENTS - FREE TEXT/NARRATIVE: HISTORY AND PHYSICAL: History of present illness: Patient 43-year-old white female with history of alcoholism who states she has relapsed with regard to her alcohol dependence and presents today with a variety of symptoms including anxiety vaginal bleeding which is chronic related to her uterine fibroids she states she's been dizzy. She has been admitted in the past for hyponatremia and hypokalemia related to her alcoholism. No fever chills chest pain or shortness of breath Review of systems: As per history of present illness and below otherwise all systems reviewed and negative. Past medical history: As per history of present illness and as reviewed below otherwise noncontributory. Surgical history: As per history of present illness and as reviewed below otherwise noncontributory. Social history: No reported history of drug or alcohol abuse. Family history: As per history of present illness and as reviewed below otherwise noncontributory. Physical exam: HEENT: Atraumatic, normocephalic, pupils reactive, negative for conjunctival pallor or scleral icterus, mucous membranes moist, throat clear, neck supple, nontender, trachea midline. Lungs: Clear to auscultation, breath sounds equal bilaterally, chest nontender. Heart: S1S2, regular, negative for clicks, rubs, or JVD. Abdomen: Soft, nondistended, nontender. Negative for masses or hepatosplenomegaly. Negative for costovertebral tenderness. Pelvis: Stable nontender. Genitourinary: Deferred. Rectal: Deferred. Extremities: Atraumatic, negative for cords or calf pain. Neurovascular unremarkable. Neuro: Awake, alert, anxious, oriented. Cranial nerves II through XII unremarkable. Cerebellum unremarkable. Motor and sensory unremarkable throughout. Exam nonfocal. Diagnostics: CBC CMP PT/INR chest x-ray EKG UA UDS EtOH Therapeutics: Banana bag as bolus Ativan 1 mg IV pvc monitor Impression: #1 alcohol abuse #2 dizziness #3 vaginal bleeding secondary to uterine fibroids Definitive disposition and diagnosis as appropriate pending reevaluation and review of above. - Related Data Allergies Allergy/AdvReac Type Severity Reaction Status Date / Time pollen extracts Allergy Other Verified 12/20/18 09:03 pet dander Allergy Other Uncoded 12/23/17 01:09 Home Meds: Home Meds Venlafaxine [Effexor XR] 150 mg PO DAILY 03/28/17 [History] clonazePAM [Klonopin] 1 mg PO TID 12/23/17 [History] Past Medical History HEENT History: Reports: None Cardiovascular History: Reports: Hypertension Respiratory History: Reports: None Gastrointestinal History: Reports: None Genitourinary History: Reports: None [employer] History: Reports: Fibroids Musculoskeletal History: Reports: None Neurological History: Reports: None Psychiatric History: Reports: Addiction, Anxiety, Depression, Panic Attack Endocrine/Metabolic History: Reports: None Hematologic History: Reports: None Other Hematologic History: Intermittent anemia per pt report Immunologic History: Reports: None Oncologic (Cancer) History: Reports: None Dermatologic History: Reports: None - Infectious Disease History Infectious Disease History: Reports: None - Past Surgical History Head Surgeries/Procedures: Reports: None Cardiovascular Surgical History: Reports: None Female Surgical History: Reports: Other (See Below) Other Female Surgeries/Procedures: hysteroscopy Endocrine Surgical History: Reports: None Social & Family History - Family History Family Medical History: Noncontributory - Caffeine Use Caffeine Use: Reports: None ED ROS GENERAL - Review of Systems Review Of Systems: ROS reveals no pertinent complaints other than HPI. ED EXAM, GENERAL - Physical Exam Exam: See Below (See dictation) Course - Vital Signs Last Recorded V/S: Last Vital Signs Temp 35.2 C L 12/20/18 07:56 Pulse 89 12/20/18 09:00 Resp 18 12/20/18 09:00 BP 94/59 L 12/20/18 09:00 Pulse Ox 96 12/20/18 09:00 - Orders/Labs/Meds Orders: Active Orders 24 hr Category Date Time Status Cardiac Monitoring [RC] . DIRECTED Care 12/20/18 08:13 Active EKG Documentation Completion [RC] STAT Care 12/20/18 08:13 Active Chest 1V Frontal [CR] Stat Exams 12/20/18 08:14 Taken MAGNESIUM [CHEM] Stat Lab 12/20/18 09:47 Ordered UA W/MICROSCOPIC [URIN] Stat Lab 12/20/18 09:17 Results Sodium Chloride 0.9% [Saline Flush] Med 12/20/18 08:13 Active 10 ml FLUSH ASDIRECTED PRN Sodium Chloride 0.9% [Saline Flush] Med 12/20/18 08:13 Active 2.5 ml FLUSH ASDIRECTED PRN Saline Lock Insert [OM.PC] Stat Oth 12/20/18 08:13 Ordered Medication Orders Sodium Chloride (Saline Flush) 10 ml FLUSH ASDIRECTED PRN PRN Reason: Keep Vein Open Sodium Chloride (Saline Flush) 2.5 ml FLUSH ASDIRECTED PRN PRN Reason: Keep Vein Open Labs: Laboratory Tests 12/20/18 12/20/18 12/20/18 Range/Units 08:35 08:35 08:35 WBC 11.73 H (4.0-11.0) K/uL RBC 4.46 (4.30-5.90) M/uL Hgb 14.0 (12.0-16.0) g/dL Hct 42.3 (36.0-46.0) % MCV 94.8 (80.0-98.0) fL MCH 31.4 (27.0-32.0) pg MCHC 33.1 (31.0-37.0) g/dL RDW Std Deviation 52.4 (28.0-62.0) fl RDW Coeff of Sherri 15 (11.0-15.0) % Plt Count 372 (150-400) K/uL MPV 9.90 (7.40-12.00) fL Neut % (Auto) 67.0 (48.0-80.0) % Lymph % (Auto) 23.3 (16.0-40.0) % [place] % (Auto) 8.1 (0.0-15.0) % Eos % (Auto) 1.2 (0.0-7.0) % Baso % (Auto) 0.4 (0.0-1.5) % Neut # (Auto) 7.9 H (1.4-5.7) K/uL Lymph # (Auto) 2.7 H (0.6-2.4) K/uL [place] # (Auto) 1.0 H (0.0-0.8) K/uL Eos # (Auto) 0.1 (0.0-0.7) K/uL Baso # (Auto) 0.1 (0.0-0.1) K/uL Nucleated RBC % 0.0 /100WBC Nucleated RBCs # 0 K/uL INR 1.15 Sodium 133 L (136-145) mmol/L Potassium 3.1 L (3.5-5.1) mmol/L Chloride 95 L (98-107) mmol/L Carbon Dioxide 26.3 (21.0-32.0) mmol/L BUN 4 L (7.0-18.0) mg/dL Creatinine 0.8 (0.6-1.0) mg/dL Est Cr Clr Drug Dosing 86.63 mL/min Estimated GFR (MDRD) > 60.0 ml/min Glucose 102 (74-106) mg/dL Calcium 9.2 (8.5-10.1) mg/dL Total Bilirubin 1.3 H (0.2-1.0) mg/dL AST 170 H (15-37) IU/L ALT 53 (14-63) IU/L Alkaline Phosphatase 264 H (46-116) U/L Total Protein 7.9 (6.4-8.2) g/dL Albumin 3.1 L (3.4-5.0) g/dL Globulin 4.8 H (2.6-4.0) g/dL Albumin/Globulin Ratio 0.7 L (0.9-1.6) Lipase 56 L (73-393) U/L Urine Color Urine Appearance Urine pH (5.0-8.0) Ur Specific [place] (1.001-1.035) Urine Protein (NEGATIVE) mg/dL Urine Glucose (UA) (NEGATIVE) mg/dL Urine Ketones (NEGATIVE) mg/dL Urine Occult Blood (NEGATIVE) Urine Nitrite (NEGATIVE) Urine Bilirubin (NEGATIVE) Urine Urobilinogen (<2.0) EU/dL Ur Leukocyte Esterase (NEGATIVE) Urine Opiates Screen (NEGATIVE) Ur Oxycodone Screen (NEGATIVE) Urine Methadone Screen (NEGATIVE) Ur Barbiturates Screen (NEGATIVE) Ur Phencyclidine Scrn (NEGATIVE) Ur Amphetamine Screen (NEGATIVE) U Methamphetamines Scrn (NEGATIVE) U Benzodiazepines Scrn (NEGATIVE) U Cocaine Metab Screen (NEGATIVE) U Marijuana (THC) Screen (NEGATIVE) Ethyl Alcohol <3 mg/dL 12/20/18 12/20/18 Range/Units 09:17 09:17 WBC (4.0-11.0) K/uL RBC (4.30-5.90) M/uL Hgb (12.0-16.0) g/dL Hct (36.0-46.0) % MCV (80.0-98.0) fL MCH (27.0-32.0) pg MCHC (31.0-37.0) g/dL RDW Std Deviation (28.0-62.0) fl RDW Coeff of Sherri (11.0-15.0) % Plt Count (150-400) K/uL MPV (7.40-12.00) fL Neut % (Auto) (48.0-80.0) % Lymph % (Auto) (16.0-40.0) % [place] % (Auto) (0.0-15.0) % Eos % (Auto) (0.0-7.0) % Baso % (Auto) (0.0-1.5) % Neut # (Auto) (1.4-5.7) K/uL Lymph # (Auto) (0.6-2.4) K/uL [place] # (Auto) (0.0-0.8) K/uL Eos # (Auto) (0.0-0.7) K/uL Baso # (Auto) (0.0-0.1) K/uL Nucleated RBC % /100WBC Nucleated RBCs # K/uL INR Sodium (136-145) mmol/L Potassium (3.5-5.1) mmol/L Chloride (98-107) mmol/L Carbon Dioxide (21.0-32.0) mmol/L BUN (7.0-18.0) mg/dL Creatinine (0.6-1.0) mg/dL Est Cr Clr Drug Dosing mL/min Estimated GFR (MDRD) ml/min Glucose (74-106) mg/dL Calcium (8.5-10.1) mg/dL Total Bilirubin (0.2-1.0) mg/dL AST (15-37) IU/L ALT (14-63) IU/L Alkaline Phosphatase (46-116) U/L Total Protein (6.4-8.2) g/dL Albumin (3.4-5.0) g/dL Globulin (2.6-4.0) g/dL Albumin/Globulin Ratio (0.9-1.6) Lipase (73-393) U/L Urine Color YELLOW Urine Appearance SLT CLOUDY Urine pH 7.5 (5.0-8.0) Ur Specific [place] 1.010 (1.001-1.035) Urine Protein 30 H (NEGATIVE) mg/dL Urine Glucose (UA) NEGATIVE (NEGATIVE) mg/dL Urine Ketones NEGATIVE (NEGATIVE) mg/dL Urine Occult Blood LARGE H (NEGATIVE) Urine Nitrite NEGATIVE (NEGATIVE) Urine Bilirubin SMALL H (NEGATIVE) Urine Urobilinogen 4.0 H (<2.0) EU/dL Ur Leukocyte Esterase NEGATIVE (NEGATIVE) Urine Opiates Screen NEGATIVE (NEGATIVE) Ur Oxycodone Screen NEGATIVE (NEGATIVE) Urine Methadone Screen NEGATIVE (NEGATIVE) Ur Barbiturates Screen NEGATIVE (NEGATIVE) Ur Phencyclidine Scrn NEGATIVE (NEGATIVE) Ur Amphetamine Screen NEGATIVE (NEGATIVE) U Methamphetamines Scrn NEGATIVE (NEGATIVE) U Benzodiazepines Scrn POSITIVE (NEGATIVE) U Cocaine Metab Screen NEGATIVE (NEGATIVE) U Marijuana (THC) Screen NEGATIVE (NEGATIVE) Ethyl Alcohol mg/dL Meds: Medications Generic Name Dose Route Start Last Admin Trade Name Freq PRN Reason Stop Dose Admin Sodium Chloride 10 ml 12/20/18 08:13 Saline Flush FLUSH ASDIRECTED PRN Keep Vein Open Sodium Chloride 2.5 ml 12/20/18 08:13 Saline Flush FLUSH ASDIRECTED PRN Keep Vein Open Discontinued Medications Generic Name Dose Route Start Last Admin Trade Name Freq PRN Reason Stop Dose Admin Multivitamins/Minerals 10 ml/ 1,011.2 mls @ 999 mls/hr 12/20/18 08:16 09:16 Thiamine HCl 100 mg/ Folic IV 12/20/18 09:16 999 mls/hr Acid 1 mg/ Sodium Chloride ONETIME ONE Administration Sodium Chloride 1,000 mls @ 999 mls/hr 12/20/18 08:47 12/20/18 08:48 Normal Saline IV 12/20/18 09:47 999 mls/hr .Bolus ONE Administration Lorazepam 1 mg 12/20/18 08:35 12/20/18 08:40 Ativan IVPUSH 12/20/18 08:36 1 mg ONETIME ONE Administration Departure - Departure Time of Disposition: 09:49 Disposition: Refer to Observation Condition: Good Clinical Impression: Alcohol withdrawal, Hypokalemia - Discharge Information Referrals: John Roman MD [Primary Care Provider] - Forms: ED Department Discharge - My Orders Last 24 Hours: My Active Orders 12/20/18 08:13 Cardiac Monitoring [RC] . DIRECTED EKG Documentation Completion [RC] STAT Sodium Chloride 0.9% [Saline Flush] 10 ml FLUSH ASDIRECTED PRN Sodium Chloride 0.9% [Saline Flush] 2.5 ml FLUSH ASDIRECTED PRN Saline Lock Insert [OM.PC] Stat 12/20/18 08:14 Chest 1V Frontal [CR] Stat 12/20/18 09:17 UA W/MICROSCOPIC [URIN] Stat 12/20/18 09:47 MAGNESIUM [CHEM] Stat - Assessment/Plan Last 24 Hours: My Active Orders 12/20/18 08:13 Cardiac Monitoring [RC] . DIRECTED EKG Documentation Completion [RC] STAT Sodium Chloride 0.9% [Saline Flush] 10 ml FLUSH ASDIRECTED PRN Sodium Chloride 0.9% [Saline Flush] 2.5 ml FLUSH ASDIRECTED PRN Saline Lock Insert [OM.PC] Stat 12/20/18 08:14 Chest 1V Frontal [CR] Stat 12/20/18 09:17 UA W/MICROSCOPIC [URIN] Stat 12/20/18 09:47 MAGNESIUM [CHEM] Stat
[2018-12-20] MEDS ORDERED: LORazepam 2 MG/ML SDV IVPUSH ONE (08:35)
[2018-12-20] MEDS ORDERED: Sodium Chloride 0.9% 1,000 ML IV ONE (08:47)
[2018-12-20 09:15] LABS: CHLORIDE,CL 95 mmol/L (98-107); SODIUM,NA 133 mmol/L (136-145)
[2018-12-20] MEDS ORDERED: Potassium Chloride 20 MEQ Tab.ER PO ONE (09:50)
[2018-12-20] MEDS ORDERED: Magnesium Sulfate/Water 2 GM in Premix Bag 1 BAG IV ONE (10:06)
[2018-12-20] MEDS ORDERED: Ondansetron 4 MG/2 ML SDV IVPUSH PRN (11:15)
[2018-12-20] MEDS: Folic Acid 1 MG Tab PO SCH (12:22)
[2018-12-20] MEDS: Thiamine 100 MG Tab PO SCH (12:22)
[2018-12-20] MEDS: Nicotine 21 MG/24 Hr Patch TRDERM SCH (12:22)
[2018-12-20] MEDS: Sodium Chloride 0.9% 1,000 ML IV SCH ×2 (12:24→21:26)
--- NOTE | 2018-12-20 12:33 | PCM.HP ---
H&P History of Present Illness - General Date of Service: 12/20/18 Admit Problem/Dx: Admission Diagnosis/Problem Admission Diagnosis/Problem Alcohol withdrawal syndrome Source of Information: Patient History Limitations: Reports: No Limitations - History of Present Illness Initial Comments - Free Text/Narative: 43F hx of chronic alcoholism, anxiety, chronic uterine fibroids w/ persistent bleeding that presented to the ER requesting to go through detox. Patient tells me that she has been admitted in the past for alcohol withdrawals back in 2017. She states that she stayed sober up until laith this year, when she drank on the 100th day of her sobriety. Since then, she has been drinking vodka and sprite daily, roughly 12-14 shots/day. Her last drink was 4 hours prior to presentation. She has no history of DTs, seizures. She tells me that her outpatient provider tried giving her a Librium taper twice in previous attempts of detox, but she failed this. Patient also has a lengthy history of uterine fibroids and menorrhagia that dates back to her 20s. She has not seen an STEREOPTICIAN recently. She is comfortable, hemodynamically stable. She denies pain, nausea, vomiting, tremors, sweating. Lower Abdomen Pain Score (Numeric/FACES): 9 - Related Data Allergies/Adverse Reactions: Allergies Allergy/AdvReac Type Severity Reaction Status Date / Time pollen extracts Allergy Other Verified 12/20/18 09:03 pet dander Allergy Other Uncoded 12/23/17 01:09 Home Medications: Home Meds Venlafaxine [Effexor XR] 150 mg PO DAILY 03/28/17 [History] clonazePAM [Klonopin] 1 mg PO TID 12/23/17 [History] Past Medical History HEENT History: Reports: None Cardiovascular History: Reports: Hypertension Respiratory History: Reports: None Gastrointestinal History: Reports: None Genitourinary History: Reports: None Other Genitourinary History: uterine fibroids STEREOPTICIAN History: Reports: Fibroids Musculoskeletal History: Reports: Fracture Other Musculoskeletal History: left foot fx Neurological History: Reports: None Psychiatric History: Reports: Addiction, Anxiety, Depression, Panic Attack Endocrine/Metabolic History: Reports: None Hematologic History: Reports: Anemia, Other (See Below) Other Hematologic History: Intermittent anemia per pt report Immunologic History: Reports: None Oncologic (Cancer) History: Reports: None Dermatologic History: Reports: Other (See Below) Other Dermatologic History: rash on back of neck - Infectious Disease History Infectious Disease History: Reports: Chicken Pox - Past Surgical History Head Surgeries/Procedures: Reports: None HEENT Surgical History: Reports: Adenoidectomy, Tonsillectomy Cardiovascular Surgical History: Reports: None Female Surgical History: Reports: Other (See Below) Other Female Surgeries/Procedures: hysteroscopy Endocrine Surgical History: Reports: None Musculoskeletal Surgical History: Reports: None Dermatological Surgical History: Reports: None Social & Family History - Family History Family Medical History: Noncontributory - Tobacco Use Smoking Status *Q: Current Every Day Smoker Years of Tobacco use: 25 Packs/Tins Daily: 1 Second Hand Smoke Exposure: No - Caffeine Use Caffeine Use: Reports: Tea - Alcohol Use Days Per Week of Alcohol Use: 7 Number of Drinks Per Day: 12 Total Drinks Per Week: 84 Date of Last Drink: 12/20/18 Time of Last Drink: 04:30 - Recreational Drug Use Recreational Drug Use: No H&P Review of Systems - Review of Systems: Review Of Systems: ROS reveals no pertinent complaints other than HPI. Exam - Exam Exam: See Below - Vital Signs Vital Signs: Last Vital Signs Temp 36.3 C 12/20/18 12:00 Pulse 89 12/20/18 12:00 Resp 18 12/20/18 12:00 BP 132/86 12/20/18 12:00 Pulse Ox 94 L 12/20/18 12:00 Weight: 91.217 kg - Exam General: Alert, Oriented, 4 HEENT: PERRLA, Hearing Intact, Mucosa Moist & Adel, Nares Patent, Normal Nasal Septum, Posterior Pharynx Clear, Conjunctiva Clear, EOMI, EACs Clear, TMs Clear Neck: Supple, Trachea Midline, 2 Lungs: Clear to Auscultation, Normal Respiratory Effort Cardiovascular: Regular Rate, Regular Rhythm GI/Abdominal Exam: Normal Bowel Sounds, Soft, Non-Tender, No Organomegaly, No Distention, No Abnormal Bruit, No Mass, Pelvis Stable Back Exam: Normal Inspection, Full Range of Motion, NT Extremities: Normal Inspection, Normal Range of Motion, Non-Tender, No Pedal Edema, Normal Capillary Refill Peripheral Pulses: 2+: Posterior Tibial (L), Posterior Tibial (R), Dorsalis Pedis (L), Dorsalis Pedis (R) Skin: Warm, Dry, Intact Neurological: Cranial Nerves Intact, Reflexes Equal Bilateral Neuro Extensive - Mental Status: Alert, Oriented x3, Normal Mood/Affect, Normal Cognition Neuro Extensive - Motor, Sensory, Reflexes: CN II-XII Intact, Normal Gait, Normal Reflexes Psychiatric: Alert, Normal Affect, Normal Mood - Patient Data Lab Results Last 24 hrs: Laboratory Results - last 24 hr 12/20/18 12/20/18 12/20/18 Range/Units 08:35 08:35 08:35 WBC 11.73 H (4.0-11.0) K/uL RBC 4.46 (4.30-5.90) M/uL Hgb 14.0 (12.0-16.0) g/dL Hct 42.3 (36.0-46.0) % MCV 94.8 (80.0-98.0) fL MCH 31.4 (27.0-32.0) pg MCHC 33.1 (31.0-37.0) g/dL RDW Std Deviation 52.4 (28.0-62.0) fl RDW Coeff of Sherri 15 (11.0-15.0) % Plt Count 372 (150-400) K/uL MPV 9.90 (7.40-12.00) fL Neut % (Auto) 67.0 (48.0-80.0) % Lymph % (Auto) 23.3 (16.0-40.0) % [place] % (Auto) 8.1 (0.0-15.0) % Eos % (Auto) 1.2 (0.0-7.0) % Baso % (Auto) 0.4 (0.0-1.5) % Neut # (Auto) 7.9 H (1.4-5.7) K/uL Lymph # (Auto) 2.7 H (0.6-2.4) K/uL [place] # (Auto) 1.0 H (0.0-0.8) K/uL Eos # (Auto) 0.1 (0.0-0.7) K/uL Baso # (Auto) 0.1 (0.0-0.1) K/uL Nucleated RBC % 0.0 /100WBC Nucleated RBCs # 0 K/uL INR 1.15 Sodium 133 L (136-145) mmol/L Potassium 3.1 L (3.5-5.1) mmol/L Chloride 95 L (98-107) mmol/L Carbon Dioxide 26.3 (21.0-32.0) mmol/L BUN 4 L (7.0-18.0) mg/dL Creatinine 0.8 (0.6-1.0) mg/dL Est Cr Clr Drug Dosing 86.63 mL/min Estimated GFR (MDRD) > 60.0 ml/min Glucose 102 (74-106) mg/dL Calcium 9.2 (8.5-10.1) mg/dL Magnesium (1.8-2.4) mg/dL Total Bilirubin 1.3 H (0.2-1.0) mg/dL AST 170 H (15-37) IU/L ALT 53 (14-63) IU/L Alkaline Phosphatase 264 H (46-116) U/L Total Protein 7.9 (6.4-8.2) g/dL Albumin 3.1 L (3.4-5.0) g/dL Globulin 4.8 H (2.6-4.0) g/dL Albumin/Globulin Ratio 0.7 L (0.9-1.6) Lipase 56 L (73-393) U/L Urine Color Urine Appearance Urine pH (5.0-8.0) Ur Specific [place] (1.001-1.035) Urine Protein (NEGATIVE) mg/dL Urine Glucose (UA) (NEGATIVE) mg/dL Urine Ketones (NEGATIVE) mg/dL Urine Occult Blood (NEGATIVE) Urine Nitrite (NEGATIVE) Urine Bilirubin (NEGATIVE) Urine Ictotest Urine Urobilinogen (<2.0) EU/dL Ur Leukocyte Esterase (NEGATIVE) Urine RBC (0-2/HPF) Urine WBC (0-5/HPF) Ur Epithelial Cells (NONE-FEW) Urine Bacteria (NEGATIVE) Urine Opiates Screen (NEGATIVE) Ur Oxycodone Screen (NEGATIVE) Urine Methadone Screen (NEGATIVE) Ur Barbiturates Screen (NEGATIVE) Ur Phencyclidine Scrn (NEGATIVE) Ur Amphetamine Screen (NEGATIVE) U Methamphetamines Scrn (NEGATIVE) U Benzodiazepines Scrn (NEGATIVE) U Cocaine Metab Screen (NEGATIVE) U Marijuana (THC) Screen (NEGATIVE) Ethyl Alcohol <3 mg/dL 12/20/18 12/20/18 12/20/18 Range/Units 08:35 09:17 09:17 WBC (4.0-11.0) K/uL RBC (4.30-5.90) M/uL Hgb (12.0-16.0) g/dL Hct (36.0-46.0) % MCV (80.0-98.0) fL MCH (27.0-32.0) pg MCHC (31.0-37.0) g/dL RDW Std Deviation (28.0-62.0) fl RDW Coeff of Sherri (11.0-15.0) % Plt Count (150-400) K/uL MPV (7.40-12.00) fL Neut % (Auto) (48.0-80.0) % Lymph % (Auto) (16.0-40.0) % [place] % (Auto) (0.0-15.0) % Eos % (Auto) (0.0-7.0) % Baso % (Auto) (0.0-1.5) % Neut # (Auto) (1.4-5.7) K/uL Lymph # (Auto) (0.6-2.4) K/uL [place] # (Auto) (0.0-0.8) K/uL Eos # (Auto) (0.0-0.7) K/uL Baso # (Auto) (0.0-0.1) K/uL Nucleated RBC % /100WBC Nucleated RBCs # K/uL INR Sodium (136-145) mmol/L Potassium (3.5-5.1) mmol/L Chloride (98-107) mmol/L Carbon Dioxide (21.0-32.0) mmol/L BUN (7.0-18.0) mg/dL Creatinine (0.6-1.0) mg/dL Est Cr Clr Drug Dosing mL/min Estimated GFR (MDRD) ml/min Glucose (74-106) mg/dL Calcium (8.5-10.1) mg/dL Magnesium 1.6 L (1.8-2.4) mg/dL Total Bilirubin (0.2-1.0) mg/dL AST (15-37) IU/L ALT (14-63) IU/L Alkaline Phosphatase (46-116) U/L Total Protein (6.4-8.2) g/dL Albumin (3.4-5.0) g/dL Globulin (2.6-4.0) g/dL Albumin/Globulin Ratio (0.9-1.6) Lipase (73-393) U/L Urine Color YELLOW Urine Appearance SLT CLOUDY Urine pH 7.5 (5.0-8.0) Ur Specific [place] 1.010 (1.001-1.035) Urine Protein 30 H (NEGATIVE) mg/dL Urine Glucose (UA) NEGATIVE (NEGATIVE) mg/dL Urine Ketones NEGATIVE (NEGATIVE) mg/dL Urine Occult Blood LARGE H (NEGATIVE) Urine Nitrite NEGATIVE (NEGATIVE) Urine Bilirubin SMALL H (NEGATIVE) Urine Ictotest NEGATIVE Urine Urobilinogen 4.0 H (<2.0) EU/dL Ur Leukocyte Esterase NEGATIVE (NEGATIVE) Urine RBC 2-3 (0-2/HPF) Urine WBC 0-4 (0-5/HPF) Ur Epithelial Cells FEW (NONE-FEW) Urine Bacteria FEW (NEGATIVE) Urine Opiates Screen NEGATIVE (NEGATIVE) Ur Oxycodone Screen NEGATIVE (NEGATIVE) Urine Methadone Screen NEGATIVE (NEGATIVE) Ur Barbiturates Screen NEGATIVE (NEGATIVE) Ur Phencyclidine Scrn NEGATIVE (NEGATIVE) Ur Amphetamine Screen NEGATIVE (NEGATIVE) U Methamphetamines Scrn NEGATIVE (NEGATIVE) U Benzodiazepines Scrn POSITIVE (NEGATIVE) U Cocaine Metab Screen NEGATIVE (NEGATIVE) U Marijuana (THC) Screen NEGATIVE (NEGATIVE) Ethyl Alcohol mg/dL Result Diagrams: 12/20/18 08:35 12/20/18 08:35 Problem List Initiated/Reviewed/Updated: Yes Orders Last 24hrs: Active Orders 24 hr Category Date Time Status Admission Status [Patient Status] [ADT] Routine ADT 12/20/18 11:38 Active Antiembolic Devices [RC] PER UNIT ROUTINE Care 12/20/18 11:16 Active CIWAA Assessment [RC] ASDIRECTED Care 12/20/18 11:23 Active Cardiac Monitoring [RC] . DIRECTED Care 12/20/18 08:13 Active Cardiac Monitoring [RC] CONTINUOUS Care 12/20/18 11:15 Inactive Oxygen Therapy [RC] PRN Care 12/20/18 11:15 Active Up ad Bjorn [RC] ASDIRECTED Care 12/20/18 11:15 Active VTE/DVT Education [RC] PER UNIT ROUTINE Care 12/20/18 11:15 Active Vital Signs [RC] Q4H Care 12/20/18 11:15 Active Regular Diet [DIET] Diet 12/20/18 Lunch Active Chest 1V Frontal [CR] Stat Exams 12/20/18 08:14 Taken CBC WITH AUTO DIFF [HEME] AM Lab 12/21/18 05:11 Ordered COMPREHENSIVE METABOLIC PN,CMP [CHEM] AM Lab 12/21/18 05:11 Ordered MAGNESIUM [CHEM] AM Lab 12/21/18 05:11 Ordered Folic Acid Med 12/20/18 11:30 Active 1 mg PO DAILY LORazepam [Ativan] Med 12/20/18 11:22 Active See Protocol IVPUSH Q4H PRN Nicotine [Habitrol] Med 12/20/18 11:15 Active 21 mg TRDERM DAILY Ondansetron [Zofran] Med 12/20/18 11:15 Active 4 mg IVPUSH Q4H PRN Sodium Chloride 0.9% [Normal Saline] 1,000 ml Med 12/20/18 11:30 Active IV ASDIRECTED Sodium Chloride 0.9% [Saline Flush] Med 12/20/18 08:13 Active 10 ml FLUSH ASDIRECTED PRN Sodium Chloride 0.9% [Saline Flush] Med 12/20/18 08:13 Active 2.5 ml FLUSH ASDIRECTED PRN Thiamine [Vitamin B-1] Med 12/20/18 11:30 Active 100 mg PO DAILY Saline Lock Insert [OM.PC] Stat Oth 12/20/18 08:13 Ordered Sequential Compression Device [OM.PC] Per Unit Routine Oth 12/20/18 11:15 Ordered Resuscitation Status Routine Resus Stat 12/20/18 11:15 Ordered Medication Orders Folic Acid (Folic Acid) 1 mg PO DAILY [facility] Last Admin: 12/20/18 12:22 Dose: 1 mg Sodium Chloride (Normal Saline) 1,000 mls @ 125 mls/hr IV ASDIRECTED DWAYNE Last Admin: 12/20/18 12:24 Dose: 125 mls/hr Lorazepam (Ativan) 0 mg IVPUSH Q4H PRN; Protocol PRN Reason: withdrawal Nicotine (Habitrol) 21 mg TRDERM DAILY [facility] Last Admin: 12/20/18 12:22 Dose: 21 mg Ondansetron HCl (Zofran) 4 mg IVPUSH Q4H PRN PRN Reason: Nausea Sodium Chloride (Saline Flush) 10 ml FLUSH ASDIRECTED PRN PRN Reason: Keep Vein Open Sodium Chloride (Saline Flush) 2.5 ml FLUSH ASDIRECTED PRN PRN Reason: Keep Vein Open Thiamine HCl (Vitamin B-1) 100 mg PO DAILY [facility] Last Admin: 12/20/18 12:22 Dose: 100 mg Assessment/Plan Comment:: Assessment: #1. Acute alcohol intoxication #2. Hypokalemia #3. Hypomagnesemia #4. Mild leukocytosis #5. Transaminitis Plan: 1. Refer to observation. Vitals per floor. SCD for DVT Prophylaxis. Up ad bjorn 2. Regular diet 3. thiamine/folic acid 4. PRN Ativan as per [facility] protocol 5. CBC, BMP tomorrow am 6. Arrange for radiology teacher referral as outpatient.
[2018-12-20] MEDS: LORazepam 2 MG/ML SDV IVPUSH PRN ×2 (13:18→21:50)
[2018-12-20] MEDS ORDERED: Venlafaxine 75 MG Cap.ER PO SCH (17:00)
[2018-12-21] MEDS: LORazepam 2 MG/ML SDV IVPUSH PRN ×2 (02:11→08:15)
[2018-12-21] MEDS: Sodium Chloride 0.9% 1,000 ML IV SCH (05:45)
[2018-12-21 07:08] LABS: CHLORIDE,CL 106 mmol/L (98-107); SODIUM,NA 140 mmol/L (136-145)
[2018-12-21 08:06] VITALS: BP 164/106
[2018-12-21] MEDS: Folic Acid 1 MG Tab PO SCH (08:14)
[2018-12-21] MEDS: Nicotine 21 MG/24 Hr Patch TRDERM SCH (08:14)
[2018-12-21] MEDS: Thiamine 100 MG Tab PO SCH (08:14)
--- NOTE | 2018-12-21 10:30 | CR ---
EXAM DATE: 12/21/18 PATIENT'S AGE: 43 Patient: MARCO ANTONIO CREWS EDMISTON Facility: , [facility] Site Site : [id number] Study: XRay-Chest [id number]/29/2019 9:40:58 AM Ordering Physician: RAJAN SAENZ MD Final Report: INDICATION: PAIN/SHORTNESS OF BREATH/ DIZZY INDICATION: Pain. Shortness of breath. TECHNIQUE: Chest 1 view. COMPARISON: 12/23/2017. FINDINGS: Cardiovascular and mediastinum: Heart size and vasculature are normal in caliber and appearance. Mediastinum is within normal limits. Lungs and pleural space: Lungs are clear. No sign of infiltrate or mass. No sign of pleural effusion. No pneumothorax. Bones and soft tissues: No significant findings. IMPRESSION: Lungs are clear. Dictated by Mitchell Robb MD @ 12/20/2018 10:02:29 AM Dictated by: Mitchell Robb MD @ 12/20/2018 10:02:37 Signed by: Mitchell Robb MD @12/20/2018 10:02:37 AM (Electronic Signature) Report Signed by Proxy. [facility]
--- NOTE | 2018-12-21 17:08 | PCM.DCSUM1 ---
Discharge Summary - Hospital Course Free Text/Narrative:: Admission date: 12/20/2018 Left AMA: 12/21/2018 43F hx of alcohol abuse that presented to the ER requesting to go through detox to become sober. Patient was admitted and was given PRN ativan as per [facility] protocol. The next morning, patient did not want to stay further, endorsing financial concerns. Inpatient safety vs concerns of what can happen as an outpatient including seizures, DT's were discussed. Patient refused to stay at the hospital. She signed out AMA. - Discharge Data Discharge Date: 12/21/18 Discharge Disposition: Against Medical Advice 07 Condition: Fair - Discharge Plan Home Medications: Home Meds Venlafaxine [Effexor XR] 150 mg PO DAILY 03/28/17 [History] clonazePAM [Klonopin] 1 mg PO TID 12/23/17 [History] Patient Handouts: What You Need to Know About Alcohol Abuse and Dependence, Adult Referrals: Sammy Cruz MD [Physician] - 01/02/19 8:30 am John Roman MD [Primary Care Provider] - 12/27/18 2:00 pm - Discharge Summary/Plan Comment DC Time >30 min.: No - Patient Data Vitals - Most Recent: Last Vital Signs Temp 35.8 C 12/21/18 07:00 Pulse 79 12/21/18 07:00 Resp 15 12/21/18 07:00 BP 164/106 H 12/21/18 07:00 Pulse Ox 97 12/21/18 07:00 Weight - Most Recent: 91.217 kg I&O - Last 24 hours: Intake & Output 12/21/18 12/21/18 12/21/18 06:59 14:59 22:59 Intake Total 1939 Output Total 550 Balance 1389 Lab Results - Last 24 hrs: Laboratory Results - last 24 hr 12/21/18 12/21/18 Range/Units 05:15 05:15 WBC 7.77 (4.0-11.0) K/uL RBC 4.10 L (4.30-5.90) M/uL Hgb 12.7 (12.0-16.0) g/dL Hct 40.0 (36.0-46.0) % MCV 97.6 (80.0-98.0) fL MCH 31.0 (27.0-32.0) pg MCHC 31.8 (31.0-37.0) g/dL RDW Std Deviation 56.3 (28.0-62.0) fl RDW Coeff of Sherri 16 H (11.0-15.0) % Plt Count 332 (150-400) K/uL MPV 9.80 (7.40-12.00) fL Neut % (Auto) 49.5 (48.0-80.0) % Lymph % (Auto) 36.9 (16.0-40.0) % [place] % (Auto) 10.4 (0.0-15.0) % Eos % (Auto) 2.6 (0.0-7.0) % Baso % (Auto) 0.6 (0.0-1.5) % Neut # (Auto) 3.8 (1.4-5.7) K/uL Lymph # (Auto) 2.9 H (0.6-2.4) K/uL [place] # (Auto) 0.8 (0.0-0.8) K/uL Eos # (Auto) 0.2 (0.0-0.7) K/uL Baso # (Auto) 0.1 (0.0-0.1) K/uL Nucleated RBC % 0.0 /100WBC Nucleated RBCs # 0 K/uL Sodium 140 (136-145) mmol/L Potassium 4.1 (3.5-5.1) mmol/L Chloride 106 (98-107) mmol/L Carbon Dioxide 23.8 (21.0-32.0) mmol/L BUN 4 L (7.0-18.0) mg/dL Creatinine 0.7 (0.6-1.0) mg/dL Est Cr Clr Drug Dosing 99.01 mL/min Estimated GFR (MDRD) > 60.0 ml/min Glucose 103 (74-106) mg/dL Calcium 8.7 (8.5-10.1) mg/dL Magnesium 2.5 H (1.8-2.4) mg/dL Total Bilirubin 1.2 H (0.2-1.0) mg/dL AST 149 H (15-37) IU/L ALT 44 (14-63) IU/L Alkaline Phosphatase 235 H (46-116) U/L Total Protein 6.9 (6.4-8.2) g/dL Albumin 2.7 L (3.4-5.0) g/dL Globulin 4.2 H (2.6-4.0) g/dL Albumin/Globulin Ratio 0.6 L (0.9-1.6) Med Orders - Current: Current Medications Discontinued Medications Folic Acid (Folic Acid) 1 mg PO DAILY [facility] Last Admin: 12/21/18 08:14 Dose: 1 mg Multivitamins/Minerals 10 ml/Thiamine HCl 100 mg/ Folic Acid 1 mg/ Sodium Chloride 1,011.2 mls @ 999 mls/hr IV ONETIME ONE Stop: 12/20/18 09:16 Last Admin: 12/20/18 09:16 Dose: 999 mls/hr Sodium Chloride (Normal Saline) 1,000 mls @ 999 mls/hr IV .Bolus ONE Stop: 12/20/18 09:47 Last Admin: 12/20/18 08:48 Dose: 999 mls/hr Magnesium Sulfate 2 gm/ Premix 50 mls @ 50 mls/hr IV ONETIME ONE Stop: 12/20/18 11:05 Last Admin: 12/20/18 10:47 Dose: 25 mls/hr Sodium Chloride (Normal Saline) 1,000 mls @ 125 mls/hr IV ASDIRECTED [facility] Last Admin: 12/21/18 05:45 Dose: 125 mls/hr Lorazepam (Ativan) 1 mg IVPUSH ONETIME ONE Stop: 12/20/18 08:36 Last Admin: 12/20/18 08:40 Dose: 1 mg Lorazepam (Ativan) 0 mg IVPUSH Q4H PRN; Protocol PRN Reason: withdrawal Last Admin: 12/21/18 08:15 Dose: 2 mg Nicotine (Habitrol) 21 mg TRDERM DAILY [facility] Last Admin: 12/21/18 08:14 Dose: 21 mg Ondansetron HCl (Zofran) 4 mg IVPUSH Q4H PRN PRN Reason: Nausea Potassium Chloride (Klor-Con M20) 40 meq PO ONETIME ONE Stop: 12/20/18 09:51 Last Admin: 12/20/18 09:56 Dose: 40 meq Sodium Chloride (Saline Flush) 10 ml FLUSH ASDIRECTED PRN PRN Reason: Keep Vein Open Sodium Chloride (Saline Flush) 2.5 ml FLUSH ASDIRECTED PRN PRN Reason: Keep Vein Open Thiamine HCl (Vitamin B-1) 100 mg PO DAILY [facility] Last Admin: 12/21/18 08:14 Dose: 100 mg Venlafaxine HCl (Effexor Xr) 150 mg PO DAILY@1700 [facility] Last Admin: 12/20/18 16:52 Dose: 150 mg
== END 2018-12-21 10:00 | disposition left against medical advice (07) | DRG 894 ==
LOC: MW.ED 07:56 → MW.MS 10:18 → UNDOADMOB 10:18 → MW.MS 11:38 → OBSVTOIN 12-21 08:10
PROVIDERS: ADMIT Internal Medicine; ATTEND Internal Medicine
PROC: HZ2ZZZZ Detoxification Services for Substance Abuse Treatment (ICD-10-PCS; principal; 2018-12-21)
DX: F10.239 Alcohol dependence with withdrawal, unspecified (principal); F41.9 Anxiety disorder, unspecified; D25.9 Leiomyoma of uterus, unspecified; I10 Essential (primary) hypertension; F32.9 Major depressive disorder, single episode, unspecified; D64.9 Anemia, unspecified; F17.210 Nicotine dependence, cigarettes, uncomplicated; E87.6 Hypokalemia; E83.42 Hypomagnesemia; D72.829 Elevated white blood cell count, unspecified; R74.0 Nonspecific elevation of levels of transaminase and lactic acid dehydrogenase [LDH]; Z91.048 Other nonmedicinal substance allergy status
CPT/HCPCS: 36415; 71045; 71045-26; 80053; 80305-QW; 81001; 83690; 83735; 85025; 85610; 93005; 96361; 96365; 96366; 96367; 96375; 96376; 99283; 99285-25; A4217; A9270-GY; G0480; J2060; J3411; J3475; J7040

== ENCOUNTER 2019-01-04 07:27 | Day surgery (SDC) | payer OTHER ==
[2019-01-03 15:14] LABS: CHLORIDE,CL 101 mmol/L (98-107); SODIUM,NA 138 mmol/L (136-145)
[~2019-01-04 07:27] MED LIST: Sodium Chloride 0.9% 10 ML SDV IV PRN; Sodium Chloride 0.9% 10 ML Syringe FLUSH PRN; Sodium Chloride 0.9% 2.5 ML Syringe FLUSH PRN; ceFAZolin 2 GM in Premix Bag 1 BAG IV ONE
[2019-01-04] MEDS ORDERED: Midazolam 1 MG/ML 2 ML SDV ONE (08:18)
[2019-01-04] MEDS ORDERED: fentaNYL 250 MCG/5 ML SDV ONE (08:18)
[2019-01-04] MEDS ORDERED: Propofol 200 MG/20 ML SDV ONE ×2 (08:18→09:17)
--- NOTE | 2019-01-04 08:23 | PCM.PREANE ---
Preanesthetic Assessment - Anesthesia/Transfusion/Family Hx Anesthesia History: Prior Anesthesia Without Reaction Family History of Anesthesia Reaction: No Transfusion History: No Prior Transfusion(s) Intubation History: Unknown - Review of Systems General: No Symptoms Pulmonary: No Symptoms Cardiovascular: No Symptoms Gastrointestinal: No Symptoms Neurological: No Symptoms Other: Reports: None - Physical Assessment Height: 5 ft 6 in Weight: 88.451 kg ASA Class: 2 Mental Status: Alert & Oriented x3 Airway Class: Mallampati = 2 Dentition: Reports: [place](s) (x4 upper front) Thyro-Mental Finger Breadths: 2 Mouth Opening Finger Breadths: 2 ROM/Head Extension: Full Lungs: Clear to Auscultation, Normal Respiratory Effort Cardiovascular: Regular Rate, Regular Rhythm - Lab Values: Laboratory Last Values WBC 9.31 K/uL (4.0-11.0) 01/03/19 14:43 RBC 3.96 M/uL (4.30-5.90) L 01/03/19 14:43 Hgb 12.4 g/dL (12.0-16.0) 01/03/19 14:43 Hct 38.1 % (36.0-46.0) 01/03/19 14:43 MCV 96.2 fL (80.0-98.0) 01/03/19 14:43 MCH 31.3 pg (27.0-32.0) 01/03/19 14:43 MCHC 32.5 g/dL (31.0-37.0) 01/03/19 14:43 RDW Std Deviation 53.0 fl (28.0-62.0) 01/03/19 14:43 RDW Coeff of Sherri 15 % (11.0-15.0) 01/03/19 14:43 Plt Count 479 K/uL (150-400) H 01/03/19 14:43 MPV 10.30 fL (7.40-12.00) 01/03/19 14:43 Nucleated RBC % 0.0 /100WBC 01/03/19 14:43 Nucleated RBCs # 0 K/uL 01/03/19 14:43 Sodium 138 mmol/L (136-145) 01/03/19 14:43 Potassium 3.6 mmol/L (3.5-5.1) 01/03/19 14:43 Chloride 101 mmol/L (98-107) 01/03/19 14:43 Carbon Dioxide 27.6 mmol/L (21.0-32.0) 01/03/19 14:43 BUN 5 mg/dL (7.0-18.0) L 01/03/19 14:43 Creatinine 0.8 mg/dL (0.6-1.0) 01/03/19 14:43 Est Cr Clr Drug Dosing 86.63 mL/min 01/03/19 14:43 Estimated GFR (MDRD) > 60.0 ml/min 01/03/19 14:43 Glucose 97 mg/dL (74-106) 01/03/19 14:43 Calcium 8.9 mg/dL (8.5-10.1) 01/03/19 14:43 Magnesium 2.0 mg/dL (1.8-2.4) 01/03/19 14:43 Total Bilirubin 0.4 mg/dL (0.2-1.0) 01/03/19 14:43 AST 100 IU/L (15-37) H 01/03/19 14:43 ALT 35 IU/L (14-63) 01/03/19 14:43 Alkaline Phosphatase 173 U/L (46-116) H 01/03/19 14:43 Total Protein 7.5 g/dL (6.4-8.2) 01/03/19 14:43 Albumin 3.2 g/dL (3.4-5.0) L 01/03/19 14:43 Globulin 4.3 g/dL (2.6-4.0) H 01/03/19 14:43 Albumin/Globulin Ratio 0.7 (0.9-1.6) L 01/03/19 14:43 HCG, Qual NEGATIVE (NEG) 01/03/19 14:43 Blood Type O POSITIVE 01/03/19 14:43 Antibody Screen NEGATIVE 01/03/19 14:43 - Allergies Allergies/Adverse Reactions: Allergies Allergy/AdvReac Type Severity Reaction Status Date / Time pollen extracts Allergy Sneezing Verified 01/03/19 08:37 pet dander Allergy Sneezing Uncoded 01/03/19 08:37 - Blood Blood Available: No - Anesthesia Plan Pre-Op Medication Ordered: None - Acknowledgements Anesthesia Type Planned: General Anesthesia Pt an Appropriate Candidate for the Planned Anesthesia: Yes Alternatives and Risks of Anesthesia Discussed w Pt/Guardian: Yes Pt/Guardian Understands and Agrees with Anesthesia Plan: Yes PreAnesthesia Questionnaire HEENT History: Reports: Other (See Below) Other HEENT History: wears contacts Cardiovascular History: Reports: Hypertension Other Cardiovascular History: HTN in the past, states has been off BP meds since last Mar. "Was in ICU in march and my sodium was low, so they took me off them". 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 Sober for 17 days. On ativan tid. No h/ o DT or seizures.) Endocrine/Metabolic History: Reports: Obesity/BMI 30+ Hematologic History: Reports: Anemia Immunologic History: Reports: None Oncologic (Cancer) History: Reports: None Dermatologic History: Reports: None - Infectious Disease History Infectious Disease History: Reports: Chicken Pox - Past Surgical History Head Surgeries/Procedures: Reports: None HEENT Surgical History: Reports: Adenoidectomy, Tonsillectomy Cardiovascular Surgical History: Reports: None Respiratory Surgical History: Reports: None GI Surgical History: Reports: None Female Surgical History: Reports: Other (See Below) Other Female Surgeries/Procedures: hysteroscopy x3 Endocrine Surgical History: Reports: None Neurological Surgical History: Reports: None Musculoskeletal Surgical History: Reports: None Oncologic Surgical History: Reports: None Dermatological Surgical History: Reports: None - SUBSTANCE USE Smoking Status *Q: Current Every Day Smoker (1ppd) - HOME MEDS Home Medications: Home Meds Venlafaxine [Effexor XR] 150 mg PO DAILY 03/28/17 [History] LORazepam [Ativan] 1 mg PO TID 01/03/19 [History] - CURRENT (IN HOUSE) MEDS Current Meds: Current Medications Sodium Chloride (Saline Flush) 10 ml FLUSH ASDIRECTED PRN PRN Reason: Keep Vein Open Sodium Chloride (Saline Flush) 2.5 ml FLUSH ASDIRECTED PRN PRN Reason: Keep Vein Open Sodium Chloride (Normal Saline) 10 ml IV ASDIRECTED PRN PRN Reason: IV Use Discontinued Medications Cefazolin Sodium/Dextrose 2 gm (/ Premix) 50 mls @ 100 mls/hr IV ONETIME ONE Stop: 01/03/19 08:54
[2019-01-04] MEDS ORDERED: Scopolamine 1.5 MG Transdermal Patch TRDERM PRN (08:24)
[2019-01-04] MEDS ORDERED: Scopolamine 1.5 MG Transdermal Patch ONE (08:31)
[2019-01-04] MEDS ORDERED: fentaNYL 100 MCG/2 ML SDV ONE (09:41)
[2019-01-04] MEDS ORDERED: HYDROmorphone 2 MG/ML Syringe ONE (09:49)
[2019-01-04] MEDS ORDERED: fentaNYL 100 MCG/2 ML SDV IVPUSH PRN (09:53)
[2019-01-04] MEDS ORDERED: HYDROmorphone 2 MG/ML SDV IVPUSH ONE (09:53)
[2019-01-04] MEDS ORDERED: ceFAZolin/Dextrose,Iso-Osmotic 2 GM/50 ML Duplex Bag IV ONE (10:03)
[2019-01-04] MEDS ORDERED: Ondansetron 4 MG/2 ML SDV ONE (10:14)
[2019-01-04] MEDS ORDERED: Rocuronium 100 MG/10 ML MDV ONE (10:14)
[2019-01-04] MEDS ORDERED: Dexamethasone 4 MG/ML 5 ML MDV ONE (10:14)
[2019-01-04] MEDS ORDERED: Fluorescein 5 ML Vial ONE (10:47)
[2019-01-04] MEDS ORDERED: Octyl 2-Cyanoacrylate 1 Tube ONE (10:56)
[2019-01-04] MEDS ORDERED: Sugammadex Sodium 200 MG/2 ML VIAL ONE (10:56)
[2019-01-04] MEDS ORDERED: Acetaminophen/oxyCODONE 325-5 MG Tab PO PRN (11:05)
[2019-01-04] MEDS ORDERED: Promethazine 25 MG/ML SDV IM PRN (11:05)
[2019-01-04] MEDS ORDERED: Ketorolac 30 MG/ML SDV IVPUSH ONE (11:05)
[2019-01-04] MEDS ORDERED: Ondansetron 4 MG/2 ML SDV IVPUSH PRN (11:05)
[2019-01-04] MEDS ORDERED: Morphine 4 MG/ML Syringe IVPUSH PRN (11:05)
--- NOTE | 2019-01-04 11:09 | PCM.OPNOTE ---
- General Post-Op/Procedure Note Date of Surgery/Procedure: 01/04/19 Operative Procedure(s): TLH,LSO,Rsalpengectomy and cystoscopy. Pre Op Diagnosis: bleeding, plevic pain Post-Op Diagnosis: Same Anesthesia Technique: General ET Tube Primary Surgeon: Sammy Cruz EBL in mLs: 100 Complications: None Condition: Good
[2019-01-04] MEDS ORDERED: Albuterol/Ipratropium 3.0-0.5 MG/3 ML Neb Soln NEB ONE (11:33)
[2019-01-04] MEDS ORDERED: Albuterol/Ipratropium 3.0-0.5 MG/3 ML Neb Soln ONE (11:41)
[2019-01-04] MEDS: Ketorolac 30 MG/ML SDV IVPUSH PRN ×2 (12:04→18:17)
--- NOTE | 2019-01-04 12:49 | PCM.POSTAN ---
POST ANESTHESIA ASSESSMENT - MENTAL STATUS Mental Status: Alert, Oriented - VITAL SIGNS Pulse Rate: 90 SaO2: 92 Resp Rate: 12 Blood Pressure: 118/68 - RESPIRATORY Respiratory Status: Respiratory Rate WNL, Airway Patent, O2 Saturation Stable, Supplemental Oxygen (4 LPM via NC) - CARDIOVASCULAR CV Status: Pulse Rate WNL, Blood Pressure Stable - GASTROINTESTINAL GI Status: No Symptoms - PAIN Pain Score: 2 - POST OP HYDRATION Hydration Status: Adequate & Stable - OBSERVATIONS Free Text/Narrative:: Patient has done well in PACU. Nursing has been unable to wean O2 below 4LPM via NC. RT consulted to push pulmonary toilet. Continuous pulse oximetry ordered when transferred to Med-Surg.
[2019-01-04] MEDS ORDERED: Lactated Ringers 1,000 ML IV SCH (14:30)
[2019-01-04] MEDS ORDERED: LORazepam 1 MG Tab PO ONE (15:15)
--- NOTE | 2019-01-04 15:27 | OR ---
SURGEON: Sammy Cruz MD DATE OF PROCEDURE: PREOPERATIVE DIAGNOSES: 1. Menometrorrhagia. 2. Fibroid uterus. 3. Bilateral adnexal mass, the right one is resolved to a simple cyst and the left one is resolved to the endometrium of the ovary. OPERATION PERFORMED: Multiple puncture diagnostic laparoscopy, total laparoscopic hysterectomy, left salpingo-oophorectomy and right salpingectomy preserving the right ovary and cystoscopy. SHINGLER: OR tech. ANESTHESIA: General endotracheal intubation. ESTIMATED BLOOD LOSS: Less than 100 mL. COMPLICATIONS: None. FINDING: A simple cyst on the right ovary, complex endometrioma cyst with adhesion to the pelvic sidewall on the left ovary, fibroid uterus. INDICATION: [place] referred to the admit note. PROCEDURE IN DETAIL: The patient was brought to the OR, properly identified. After adequate level of general anesthesia, the patient was placed in lithotomy position, prepped and draped in sterile fashion as usual. Ochoa catheter was placed in bladder for drainage and compromise retractor was placed in the vagina for manipulation and then the operation shifted abdominally. Stab wound was done beneath the umbilicus. The Veress needle was placed in the peritoneal cavity and that cavity insufflated with 3.5 liters of carbon dioxide and then 5 mm trocar was used to enter the abdomen beneath the umbilicus under direct vision using the Visiport technique. Once that is done, the patient was placed in steep Trendelenburg and the right and left side abdominal wall trocar was placed. The left one was 10 mm, the right one is 5 mm room and later on I placed one 5 mm suprapubically. After placing the patient in steep Trendelenburg and retracting the intestine from the operative field, inspection of her operations revealed that the patient had a simple cyst on her right ovary and a rather complex later on resolved to be endometrioma on the left ovary, so a decision was made to remove the left tube and ovary and preserve the right ovary and remove the right tube. The operation was started by coagulated using the Billy Harmonic scapula by transecting the superior pedicle on the left side, the tube and ovary included with the specimen and on the right side the superior pedicle coagulated transected. The tube is included with the specimen. The uterus was preserved. The ovary in the right side was preserved. The round ligament was coagulated, transected in the same manner and then the anterior leaf of the broad ligament dissected down more medially pushing the bladder completely away from the operative field. The uterine vessel was coagulated and transected using the Billy Harmonic scapula on both sides and then the vagina was entered using the Billy Harmonic scapula in a circular manner at the tip of the manipulator detaching the cervix from its attachment to the vagina. Cervix and uterus, right tube and left tube and ovary were removed vaginally and pneumoperitoneum re-established by placing vaginal pack in the vagina. A thorough irrigation of the pelvis was done. There was no oozing, no bleeding. We proceeded to close the vaginal cuff laparoscopically using 2-0 PDS interrupted sutures. While we were doing that, we asked Anesthesia personnel to give the patient fluorescein and after closing the vaginal cuff, the abdomen deflated and the patient was taken off Trendelenburg and cystoscopy was performed. The bladder was intact. Both ureteric orifices seen with the dye coming from both of them. Thus, the patency of both ureters was verified, satisfied with these procedure and after retrieving the trocar from the abdomen and the multiple laparoscopic incision was closed in layers. Instrument and sponge count was correct. The patient tolerated the procedure well, went to recovery room in stable general condition. HUMZA / PRIYANK /[id number]
[2019-01-04] MEDS: Acetaminophen/oxyCODONE 325-5 MG Tab PO PRN ×2 (16:56→21:38)
[2019-01-04] MEDS ORDERED: Venlafaxine 75 MG Cap.ER PO SCH (17:00)
[2019-01-04 20:27] VITALS: BP 131/79
[2019-01-04] MEDS ORDERED: LORazepam 1 MG Tab PO SCH (22:00)
--- NOTE | 2019-01-05 07:37 | PCM.SN ---
- Free Text/Narrative Note: Rounding on patient today and was notified that she left AMA last night . Unable to assess patient.
== END 2019-01-04 22:15 | disposition left against medical advice (07) ==
LOC: MW.SDS 07:27 → MW.MS 12:09 → MW.SDS 22:15
PROVIDERS: ATTEND Obstetrics & Gynecology
DX: N80.0 Endometriosis of uterus (principal); D25.9 Leiomyoma of uterus, unspecified; N83.201 Unspecified ovarian cyst, right side; N73.6 Female pelvic peritoneal adhesions (postinfective); I10 Essential (primary) hypertension; F41.9 Anxiety disorder, unspecified; D64.9 Anemia, unspecified; F32.9 Major depressive disorder, single episode, unspecified; E66.9 Obesity, unspecified; Z68.31 Body mass index [BMI] 31.0-31.9, adult; F17.210 Nicotine dependence, cigarettes, uncomplicated; Z87.898 Personal history of other specified conditions; Z91.048 Other nonmedicinal substance allergy status
CPT/HCPCS: 36415; 58571; 80053; 83735; 84703; 85027; 86850; 86900; 86901; 94640; 94660; A9270; J0690; J1100; J1170; J1885; J2001; J2250; J2405; J2704; J3010; J3490; J7120; 00840

== ENCOUNTER 2019-08-15 00:30 | Emergency (ER) | payer OTHER ==
--- NOTE | 2019-08-15 00:55 | EDM.PDOC ---
ED HPI GENERAL MEDICAL PROBLEM - General Chief Complaint: Upper Extremity Injury/Pain Stated Complaint: [place] RING STUCK ON FINGER Time Seen by Provider: 08/15/19 00:48 Source of Information: Reports: Patient History Limitations: Reports: No Limitations - History of Present Illness INITIAL COMMENTS - FREE TEXT/NARRATIVE: HISTORY OF PRESENT ILLNESS: Patient is a 43-year-old female who presents with ring stuck on her left hand ring finger for the past few hours.she recently got her ring resized and it was too small. Has tried multiple home remedies including oil, dishsoap, butter without resolution of symptoms. Denies any weakness, numbness tingling. Has otherwise been in normal state of health. REVIEW OF SYSTEMS: Other than the symptoms associated with the present events, the following is reported with regard to recent health: General: (-) fever. HENT: (-) congestion. Respiratory: (-) cough. Cardiovascular: (-) chest pain. GI: (-) abdominal pain. Musculoskeletal: (-) other aches or pains. Endocrine: (-) generalized weakness. Neurological: (-) localized weakness. Skin: (+) swelling to left hand ring finger PAST MEDICAL HISTORY: reviewed as per nursing notes SOCIAL HISTORY: reviewed as per nursing notes, MEDICATIONS: Per nurse's note ALLERGIES: Per nurse's note, reviewed by me PHYSICAL EXAMINATION: GENERALIZED APPEARANCE: well developed, well nourished in mild distress VITAL SIGNS: Per nurse's note, reviewed by me SKIN: Warm, dry; (-) cyanosis; (+) swelling to left hand ring finger distal to ring. cap refill < 2 sec. sensation intact. abrasion to proximal dorsal left ring finger from pt's prior attempt to remove. small blister volar proximal left ring finger. 2+ radial pulses. HEAD: (-) scalp swelling, (-) tenderness. EYES: (-) conjunctival pallor, (-) scleral icterus. ENMT: (-) stridor; mucous membranes moist. NECK: (-) tenderness, (-) stiffness, CHEST AND RESPIRATORY: (-) rales, (-) rhonchi, (-) wheezes; breath sounds equal bilaterally. HEART AND CARDIOVASCULAR: (-) irregularity; (-) murmur, (-) gallop. ABDOMEN AND GI: Soft; (-) tenderness, (-) guarding, (-) rebound, (-) palpable masses, EXTREMITIES: see skin exam. no bony tenderness. sensation intact. FROM. NEURO AND PSYCH: Alert. Cranial nerves grossly intact; strength symmetric. gait steady EMERGENCY DEPARTMENT COURSE AND TREATMENT: Patient's condition improved during Emergency Department evaluation. Attempted removal with string technique using dental floss without success. Ring successfully removed by hourly sales staff using ring cutters. Finger checked by myself following procedure: NVI, no bony tenderness. Pt tolerated well. PLAN AND FOLLOW-UP: Patient received written and verbal instructions regarding this condition. Return to ED immediately with any new or worsening symptoms. Follow up to be arranged by patient with pcp in 1-2 days for further evaluation. Given discharge precautions. Patient expressed verbal understanding. - Related Data Allergies Allergy/AdvReac Type Severity Reaction Status Date / Time folic acid Allergy Severe Airway Verified 08/15/19 00:43 Tightness pollen extracts Allergy Sneezing Verified 08/15/19 00:43 pet dander Allergy Sneezing Uncoded 08/15/19 00:43 Home Meds: Home Meds Venlafaxine [Effexor XR] 150 mg PO DAILY 03/28/17 [History] clonazePAM [Klonopin] 1 mg PO TID 08/15/19 [History] Past Medical History HEENT History: Reports: Other (See Below) Other HEENT History: wears contacts Cardiovascular History: Reports: Hypertension Other Cardiovascular History: HTN in the past, states has been off BP meds since last Mar. "Was in ICU in march and my sodium was low, so they took me off them". 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: Dysfunctional Uterine Bleeding, Fibroids Musculoskeletal History: Reports: Fracture Other Musculoskeletal History: left foot fx Neurological History: Reports: None Psychiatric History: Reports: Addiction, Anxiety, Depression, Panic Attack, Other (See Below) Endocrine/Metabolic History: Reports: Obesity/BMI 30+ Hematologic History: Reports: Anemia Immunologic History: Reports: None Oncologic (Cancer) History: Reports: None Dermatologic History: Reports: None - Infectious Disease History Infectious Disease History: Reports: Chicken Pox - Past Surgical History Head Surgeries/Procedures: Reports: None HEENT Surgical History: Reports: Adenoidectomy, Tonsillectomy Cardiovascular Surgical History: Reports: None Respiratory Surgical History: Reports: None GI Surgical History: Reports: None Female Surgical History: Reports: Other (See Below) Other Female Surgeries/Procedures: hysteroscopy x3 Endocrine Surgical History: Reports: None Neurological Surgical History: Reports: None Musculoskeletal Surgical History: Reports: None Oncologic Surgical History: Reports: None Dermatological Surgical History: Reports: None Social & Family History - Family History Family Medical History: Noncontributory - Tobacco Use Smoking Status *Q: Current Every Day Smoker Years of Tobacco use: 25 Packs/Tins Daily: 1 - Caffeine Use Caffeine Use: Reports: Coffee, Tea - Recreational Drug Use Recreational Drug Use: No Review of Systems - Review of Systems Review Of Systems: See Below (see dictation) ED EXAM, GENERAL - Physical Exam Exam: See Below (see dictation) Course - Vital Signs Last Recorded V/S: Last Vital Signs Temp 97.6 F 08/15/19 00:39 Pulse 78 08/15/19 00:39 Resp 18 08/15/19 00:39 BP 152/92 H 08/15/19 00:39 Pulse Ox 96 08/15/19 00:39 Departure - Departure Time of Disposition: 01:46 Disposition: Home, Self-Care 01 Condition: Good Clinical Impression: Tight ring on finger, Constriction injury of finger of left hand - Discharge Information *PRESCRIPTION DRUG MONITORING PROGRAM REVIEWED*: Not Applicable *COPY OF PRESCRIPTION DRUG MONITORING REPORT IN PATIENT HERMINIO: Not Applicable Instructions: RICE Therapy for Routine Care of Injuries, [id number] Referrals: John Roman MD [Primary Care Provider] - Forms: ED Department Discharge Additional Instructions: The following information is given to patients seen in the emergency department who are being discharged to home. This information is to outline your options for follow-up care. We provide all patients seen in our emergency department with a follow-up referral. The need for follow-up, as well as the timing and circumstances, are variable depending upon the specifics of your emergency department visit. If you don't have a primary care physician on staff, we will provide you with a referral. We always advise you to contact your personal physician following an emergency department visit to inform them of the circumstance of the visit and for follow-up with them and/or the need for any referrals to a consulting specialist. The emergency department will also refer you to a specialist when appropriate. This referral assures that you have the opportunity for follow-up care with a specialist. All of these measure are taken in an effort to provide you with optimal care, which includes your follow-up. Under all circumstances we always encourage you to contact your private physician who remains a resource for coordinating your care. When calling for follow-up care, please make the office aware that this follow-up is from your recent emergency room visit. If for any reason you are refused follow-up, please contact the [facility] Emergency Department at and asked to speak to the emergency department charge nurse. Sepsis Event Note - Evaluation Sepsis Screening Result: No Definite Risk - Focused Exam Vital Signs: Vital Signs Temp Pulse Resp BP Pulse Ox 08/15/19 00:39 97.6 F 78 18 152/92 H 96 Date Exam was Performed: 08/15/19 Time Exam was Performed: 02:28
== END 2019-08-15 01:57 | disposition home or self-care (01) ==
LOC: MW.ED 00:30
CPT/HCPCS: 99282; 99283

== ENCOUNTER 2021-06-17 00:22 | Emergency (ER) | payer BC, OTHER ==
[2021-06-17] MEDS ORDERED: Ketorolac 15 MG/ML SDV IM STA (01:41)
[2021-06-17] MEDS ORDERED: Prochlorperazine 10 MG/2 ML SDV IM ONE (01:42)
[2021-06-17] MEDS ORDERED: diphenhydrAMINE 50 MG/ML SDV IM ONE (01:42)
--- NOTE | 2021-06-17 02:24 | CT ---
INDICATION: Headache, injury TECHNIQUE: CT Head without i.v. contrast. Coronal and sagittal reformats were obtained. COMPARISON: None FINDINGS: CSF space: The ventricles are normal for age. Brain: No evidence of mass, acute infarction or hemorrhage is seen. No mass-effect or midline shift is seen. The brain parenchyma is otherwise normal in appearance with preservation of the parsons-white matter junction. Calvarium: The visualized paranasal sinuses are well aerated. The mastoid air cells are clear. The visualized orbits are grossly unremarkable. The calvarium is unremarkable in appearance with no fractures identified. IMPRESSION: 1. No evidence of acute infarction, intracranial hemorrhage, or mass-effect seen. Please note that all CT scans at this facility use dose modulation, iterative reconstruction, and/or weight-based dosing when appropriate to reduce radiation dose to as low as reasonably achievable. Dictated by: Fernando Barber MD @ 06/17/2021 02:23:16 (Electronically Signed)
[2021-06-17 02:49] VITALS: BP 118/83; PULSE 93
--- NOTE | 2021-06-17 02:53 | EDM.PDOC ---
ED HPI GENERAL MEDICAL PROBLEM - General Chief Complaint: Headache Stated Complaint: MIGRAINE Time Seen by Provider: 06/17/21 01:23 - History of Present Illness INITIAL COMMENTS - FREE TEXT/NARRATIVE: HISTORY AND PHYSICAL: History of present illness: This is a 45-year-old female who has a history significant for Covid who presents ER today secondary to left sided temporal headache x4 months. Patient reports the headaches been there constantly for 4-month. She reports that when she wakes up the headache is present. She denies any other symptomatology with it. She denies any recent fevers, shakes, chills, nausea, vomiting, diarrhea, dysuria, frequency, urgency, chest pain, shortness of breath, abdominal pain. Patient reports that she had seen her primary care physician and told that she would need an MRI but she did not have insurance at the time so she is negative. Patient reports that she currently has insurance and she is in the process of following up with her doctor to get fully evaluated for this. Patient reports that over the last week the pain in her head has slowly gotten worse. She reports that he called her doctor earlier today however she slept through the phone call back so she does not know what he had wanted her to do. She reports that this evening the headache gotten worse so she came to the ED for further evaluation. Patient has any double vision or blurred vision. Patient has any recent weight loss. Patient reports that after she had a hysterectomy that her [employer] doctor told her that she likely had obstructive sleep apnea and she believes that this is the cause of her headaches. Patient currently is in the process of getting evaluated and has test coming up for obstructive sleep apnea. Patient reports that she is been taking ibuprofen and Tylenol [id number] for hea daches with some relief but not much. Patient denies any ear pain. Patient denies any visual changes. Patient denies any throat pain. Patient denies any other symptomatology. Patient reports that headache is not a thunderclap headache and has been gradually worsening over the last several month. Review of systems: As per history of present illness and below otherwise all systems reviewed and negative. Past medical history: As per history of present illness and as reviewed below otherwise noncontributory. Surgical history: As per history of present illness and as reviewed below otherwise noncontributory. Social history: No reported history of drug abuse. Family history: As per history of present illness and as reviewed below otherwise noncontributory. Physical exam: This patient was seen and evaluated during the 2019 SARS-CoV-2 novel coronavirus pandemic period. Community viral transmission is ongoing at time of this encounter and the emergency department is operating under pandemic response procedures. Constitutional: Patient is oriented to person, place, and time. Appears well- developed and well-nourished. No distress. HEENT: Moist mucous membranes Head: Normocephalic and atraumatic Eyes: Right eye exhibits no discharge. Left eye exhibits no discharge. No scleral icterus Neck supple, no nuchal rigidity, no photophobia, no Kernig's sign or Brudzinski sign, patient does not present with signs or symptoms of be consistent with meningitis. Neck: Normal range of motion. No tracheal deviation present. Cardiovascular: Normal rate and regular rhythm. Pulmonary: Effort normal, no respiratory distress. Abdominal: No distention Musculoskeletal: Normal range of motion Neurologic: Alert and oriented to person, place and time. Skin: [place], warm and dry. Psychiatric: Normal mood and affect. Behavior is normal. Judgment and thought content normal. Nursing note and vital signs have been reviewed Diagnostics: CT head: No acute bleed or pathology. Therapeutics: Toradol, Compazine, Benadryl Assessment and plan: 45-year-old female who presents ER today secondary to headache x4-month that is slowly worsening over the last week. Patient does have access to follow-up and will make an appointment see her doctor on Tuesday. Patient is requesting assistance with pain management until she is able to see her doctor Tuesday. Patient has no neurological deficits. Patient's presentation does not appear to be consistent with meningitis, subarachnoid hemorrhage, traumatic subdural or epidural hematoma. Patient CT scan has helped rule out intracranial pathology although I have discussed with the patient and her the limitations of a CT scan of the need to follow-up with her doctor to see a neurologist for more extensive evaluation including an MRI of the brain. Patient be discharged home with a prescription for ibuprofen and tramadol to assist her until she is able to see her doctor. Reassessment at the time of disposition demonstrates that the patient is in no acute distress. The patient has remained stable throughout the entire ED visit and is without objective evidence for acute process requiring urgent intervention or hospitalization. The patient is stable for discharge, counseling is provided as documented above, discussed symptomatic treatment and specific conditions for return. I have spoken with the patient/caregiver and discussed todays findings, in addition to providing specific details for the plan of care. Questions are answered and there is agreement with the plan. Definitive disposition and diagnosis as appropriate pending reevaluation and review of above. Left Head Pain Score (Numeric/FACES): 10 - Related Data Allergies Allergy/AdvReac Type Severity Reaction Status Date / Time folic acid Allergy Severe Airway Verified 06/17/21 00:40 Tightness pollen extracts Allergy Sneezing Verified 06/17/21 00:40 pet dander Allergy Sneezing Uncoded 06/17/21 00:40 Home Meds: Home Meds Venlafaxine [Effexor XR] 150 mg PO DAILY 03/28/17 [History] clonazePAM [Klonopin] 1 mg PO TID 08/15/19 [History] Ibuprofen 600 mg PO Q6HR PRN #30 tablet 06/17/21 [Rx] Lisinopril/Hydrochlorothiazide [Lisinopril-Hctz 10-12.5 mg Tab] 1 each PO DAILY 06/17/21 [History] traMADol [Ultram] 50 mg PO Q6H PRN #12 tab 06/17/21 [Rx] Past Medical History HEENT History: Reports: Other (See Below) Other HEENT History: wears contacts Cardiovascular History: Reports: Hypertension Other Cardiovascular History: HTN in the past, states has been off BP meds since last Mar. "Was in ICU in march and my sodium was low, so they took me off them". 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 Bleeding, Fibroids Musculoskeletal History: Reports: Fracture Other Musculoskeletal History: left foot fx Neurological History: Reports: None Psychiatric History: Reports: Addiction, Anxiety, Depression, Panic Attack, Other (See Below) Endocrine/Metabolic History: Reports: Obesity/BMI 30+ Hematologic History: Reports: Anemia Immunologic History: Reports: None Oncologic (Cancer) History: Reports: None Dermatologic History: Reports: None - Infectious Disease History Infectious Disease History: Reports: Chicken Pox - Past Surgical History Head Surgeries/Procedures: Reports: None HEENT Surgical History: Reports: Adenoidectomy, Tonsillectomy Cardiovascular Surgical History: Reports: None Respiratory Surgical History: Reports: None GI Surgical History: Reports: None Female Surgical History: Reports: Other (See Below) Other Female Surgeries/Procedures: hysteroscopy x3 Endocrine Surgical History: Reports: None Neurological Surgical History: Reports: None Musculoskeletal Surgical History: Reports: None Oncologic Surgical History: Reports: None Dermatological Surgical History: Reports: None Social & Family History - Family History Family Medical History: No Pertinent Family History - Caffeine Use Caffeine Use: Reports: Coffee, Tea - Recreational Drug Use Recreational Drug Use: No ED ROS GENERAL - Review of Systems Review Of Systems: See Below ED EXAM, GENERAL - Physical Exam Exam: See Below Course - Vital Signs Last Recorded V/S: Last Vital Signs Temp 97.3 F 06/17/21 00:43 Pulse 114 H 06/17/21 00:43 Resp 20 06/17/21 00:43 BP 135/83 06/17/21 00:43 Pulse Ox 96 06/17/21 00:43 - Orders/Labs/Meds Meds: Medications Discontinued Medications Generic Name Dose Route Start Last Admin Trade Name Jorge PRAnibal Reason Stop Dose Admin Diphenhydramine HCl 50 mg 06/17/21 01:42 06/17/21 01:49 Diphenhydramine 50 Mg/Ml Sdv IM 06/17/21 01:43 50 mg ONETIME ONE Administration Ketorolac Tromethamine 30 mg 06/17/21 01:41 06/17/21 01:52 Ketorolac 15 Mg/Ml Sdv IM 06/17/21 01:42 30 mg Q6H STA Administration Prochlorperazine Edisylate 10 mg 06/17/21 01:42 06/17/21 01:53 Prochlorperazine 10 Mg/2 Ml Sdv IM 06/17/21 01:43 10 mg ONETIME ONE Administration Departure - Departure Time of Disposition: 02:49 Disposition: Home, Self-Care 01 Condition: Good Clinical Impression: Headache - Discharge Information Instructions: General Headache Without Cause, [id number] Referrals: Iván Clark MD [Primary Care Provider] - Additional Instructions: You were seen and evaluated in ER today secondary to a headache of unclear etiology. Please make an appointment see your doctor so they can resume your outpatient evaluation for your headaches. You will likely need an MRI and a neurological consultation that can be made through your family doctor. I have written you prescription for ibuprofen and tramadol to help you get through the weekend until you are able to see your doctor on Tuesday. In the ER he has been given a shot of Toradol, Compazine, and Benadryl which appeared to have helped you with your headache at this time. Please go home and get plenty rest, drink plenty of fluids. Please return to the ER if you develop any new or concerning symptoms. The following information is given to patients seen in the emergency department who are being discharged to home. This information is to outline your options for follow-up care. We provide all patients seen in our emergency department with a follow-up referral. The need for follow-up, as well as the timing and circumstances, are variable depending upon the specifics of your emergency department visit. If you don't have a primary care physician on staff, we will provide you with a referral. We always advise you to contact your personal physician following an emergency department visit to inform them of the circumstance of the visit and for follow-up with them and/or the need for any referrals to a consulting specialist. The emergency department will also refer you to a specialist when appropriate. This referral assures that you have the opportunity for follow-up care with a specialist. All of these measure are taken in an effort to provide you with optimal care, which includes your follow-up. Under all circumstances we always encourage you to contact your private physician who remains a resource for coordinating your care. When calling for follow-up care, please make the office aware that this follow-up is from your recent emergency room visit. If for any reason you are refused follow-up, please contact the [facility] Emergency Department at and asked to speak to the emergency department charge nurse. [facility] [address] [place] [id number] [address] Sepsis Event Note (ED) - Evaluation Sepsis Screening Result: No Definite Risk - Focused Exam Vital Signs: Vital Signs Temp Pulse Resp BP Pulse Ox 11/24/21 00:43 97.3 F 114 H 20 135/83 96
== END 2021-06-17 03:00 | disposition home or self-care (01) ==
LOC: MW.ED 00:22
DX: R51.9 Headache, unspecified (principal); I10 Essential (primary) hypertension; E66.9 Obesity, unspecified; Z68.27 Body mass index [BMI] 27.0-27.9, adult; Z88.8 Allergy status to other drugs, medicaments and biological substances; Z91.048 Other nonmedicinal substance allergy status; Z79.899 Other long term (current) drug therapy
CPT/HCPCS: 70450; 96372; 99284; J0780; J1200; J1885

== ENCOUNTER 2021-08-10 10:05 | Emergency (ER) | payer SELFPAY ==
[2021-08-10 10:14] VITALS: BP 158/90
[2021-08-10] MEDS ORDERED: Sodium Chloride 0.9% 10 ML Syringe FLUSH PRN (10:47)
[2021-08-10] MEDS ORDERED: Sodium Chloride 0.9% 2.5 ML Syringe FLUSH PRN (10:47)
[2021-08-10] MEDS ORDERED: Sodium Chloride 0.9% 1,000 ML IV ONE (10:48)
[2021-08-10] MEDS ORDERED: Ondansetron 4 MG/2 ML SDV IVPUSH ONE (10:48)
[2021-08-10] MEDS ORDERED: Acetaminophen 500 MG Tab PO ONE (10:50)
[2021-08-10 12:12] LABS: BLOOD UREA NITROGEN,BUN 7 mg/dL (7.0-18.0); CARBON DIOXIDE,CO2 27.1 mmol/L (21.0-32.0); CHLORIDE,CL 96 mmol/L (98-107); CORONAVIRUS COVID-19 NAA POSITIVE (NEGATIVE); GLUCOSE RANDOM 103 mg/dL (74-106); INFLUENZA A NAA NEGATIVE (NEGATIVE); INFLUENZA B NAA NEGATIVE (NEGATIVE); POTASSIUM,K 3.6 mmol/L (3.5-5.1); SODIUM,NA 134 mmol/L (136-145)
[2021-08-10] MEDS ORDERED: Dexamethasone 10 MG/ML SDV IVPUSH STA (12:26)
[2021-08-10 13:19] VITALS: PULSE 89
== END 2021-08-10 13:38 | disposition left against medical advice (07) ==
LOC: MW.ED 10:05
DX: U07.1 COVID-19 (principal); R09.02 Hypoxemia; I10 Essential (primary) hypertension; E66.9 Obesity, unspecified; Z68.27 Body mass index [BMI] 27.0-27.9, adult; Z91.048 Other nonmedicinal substance allergy status; Z79.899 Other long term (current) drug therapy; Z72.0 Tobacco use
CPT/HCPCS: 0240U; 36415; 71045; 80053; 83735; 85025; 86140; 93005; 96374; 96375; 99285; A9270; J1100; J2405; J7030

== ENCOUNTER 2021-08-13 12:03 | Inpatient (IN) | payer SELFPAY ==
[2021-08-13] MEDS ORDERED: Sodium Chloride 0.9% 2.5 ML Syringe FLUSH PRN ×2 (12:17→14:53)
[2021-08-13] MEDS ORDERED: Ketorolac 30 MG/ML SDV IVPUSH ONE (12:17)
[2021-08-13] MEDS ORDERED: LORazepam 2 MG/ML SDV IVPUSH ONE (12:17)
[2021-08-13] MEDS ORDERED: Dexamethasone 10 MG/ML SDV IVPUSH ONE (12:17)
[2021-08-13] MEDS ORDERED: Sodium Chloride 0.9% 10 ML Syringe FLUSH PRN ×2 (12:17→14:53)
[2021-08-13] MEDS ORDERED: REMDESIVIR 200 MG in Sodium Chloride 0.9% 250 ML IV ONE ×2 (12:21→12:45)
[2021-08-13] MEDS ORDERED: Nicotine 21 MG/24 Hr Patch TRDERM ONE (12:22)
[2021-08-13 13:01] LABS: BLOOD UREA NITROGEN,BUN 7 mg/dL (7.0-18.0); CARBON DIOXIDE,CO2 28.8 mmol/L (21.0-32.0); CHLORIDE,CL 95 mmol/L (98-107); GLUCOSE RANDOM 107 mg/dL (74-106); POTASSIUM,K 3.8 mmol/L (3.5-5.1); SODIUM,NA 133 mmol/L (136-145)
[2021-08-13] MEDS ORDERED: Benzonatate 100 MG Cap PO PRN (15:00)
[2021-08-13] MEDS ORDERED: Albuterol/Ipratropium 4 GM Inhalation Spray INH PRN (15:00)
[2021-08-13] MEDS ORDERED: Enoxaparin 40 MG/0.4 ML Syringe SUBCUT SCH (15:00)
[2021-08-13] MEDS ORDERED: LORazepam 2 MG/ML SDV IVPUSH PRN (15:00)
[2021-08-13] MEDS ORDERED: Codeine/guaiFENesin 10-100 MG/5 ML Syrup 5 ML Cup PO PRN (15:00)
[2021-08-13] MEDS ORDERED: Ondansetron 4 MG/2 ML SDV IVPUSH PRN (15:00)
[2021-08-13] MEDS ORDERED: Acetaminophen 325 MG Tab PO PRN (15:00)
[2021-08-13] MEDS ORDERED: traMADol 50 MG Tab PO PRN (17:00)
[2021-08-13] MEDS ORDERED: ClonazePAM 1 MG Tab PO PRN ×2 (20:00→22:00)
[2021-08-13 23:30] VITALS: PULSE 83
[2021-08-14 07:04] LABS: BLOOD UREA NITROGEN,BUN 9 mg/dL (7.0-18.0); CARBON DIOXIDE,CO2 29.1 mmol/L (21.0-32.0); CHLORIDE,CL 98 mmol/L (98-107); GLUCOSE RANDOM 132 mg/dL (74-106); POTASSIUM,K 4.2 mmol/L (3.5-5.1); SODIUM,NA 136 mmol/L (136-145)
[2021-08-14] MEDS ORDERED: Pantoprazole 40 MG Tab.CR PO SCH (07:30)
[2021-08-14 08:50] VITALS: BP 150/69
[2021-08-14] MEDS ORDERED: Dexamethasone 4 MG Tab PO SCH (09:00)
[2021-08-14] MEDS ORDERED: Nicotine 21 MG/24 Hr Patch TRDERM ONE (09:00)
[2021-08-14] MEDS ORDERED: Venlafaxine 75 MG Cap.ER PO SCH (09:00)
[2021-08-14] MEDS ORDERED: Lisinopril/Hydrochlorothiazide 10-12.5 MG Tab PO SCH (09:00)
[2021-08-14] MEDS ORDERED: REMDESIVIR 100 MG in Sodium Chloride 0.9% 100 ML IV SCH (10:00)
== END 2021-08-14 08:45 | disposition left against medical advice (07) | DRG 177 ==
LOC: MW.ED 12:03 → MW.MS 14:23
PROVIDERS: ADMIT Internal Medicine; ATTEND Internal Medicine
PROC: XW033E5 Introduction of Remdesivir Anti-infective into Peripheral Vein, Percutaneous Approach, New Technology Group 5 (ICD-10-PCS; principal; 2021-08-13)
PROC: 3E0DX3Z Introduction of Anti-inflammatory into Mouth and Pharynx, External Approach (ICD-10-PCS; 2021-08-13)
DX: U07.1 COVID-19 (principal); J12.82 Pneumonia due to coronavirus disease 2019; F10.239 Alcohol dependence with withdrawal, unspecified; F17.210 Nicotine dependence, cigarettes, uncomplicated; R74.01 Elevation of levels of liver transaminase levels; E66.9 Obesity, unspecified; J45.909 Unspecified asthma, uncomplicated; I10 Essential (primary) hypertension; F32.A Depression, unspecified; F41.0 Panic disorder [episodic paroxysmal anxiety]; D64.9 Anemia, unspecified; G47.33 Obstructive sleep apnea (adult) (pediatric); Z91.09 Other allergy status, other than to drugs and biological substances; Z88.8 Allergy status to other drugs, medicaments and biological substances; Z79.899 Other long term (current) drug therapy; Z98.890 Other specified postprocedural states; Z68.32 Body mass index [BMI] 32.0-32.9, adult
CPT/HCPCS: 36415; 71045; 71045-26; 80053; 80307; 81003; 82248; 83605; 85025; 85610; 85730; 87040; 93005; 96365; 96375; 99285-25; A9270-GY; J1100; J1650; J1885; J2060; J7050

== ENCOUNTER 2021-11-20 05:45 | Emergency (ER) | payer OTHER ==
[2021-11-20] MEDS ORDERED: Ketorolac 30 MG/ML SDV IM ONE (05:49)
[2021-11-20 06:58] VITALS: BP 169/99; PULSE 76
== END 2021-11-20 06:59 | disposition home or self-care (01) ==
LOC: MW.ED 05:45
DX: S16.1XXA Strain of muscle, fascia and tendon at neck level, initial encounter (principal); M25.512 Pain in left shoulder; J45.909 Unspecified asthma, uncomplicated; I10 Essential (primary) hypertension; E66.9 Obesity, unspecified; Z68.31 Body mass index [BMI] 31.0-31.9, adult; Z86.16 Personal history of COVID-19; Z79.899 Other long term (current) drug therapy; Z88.1 Allergy status to other antibiotic agents; Z91.048 Other nonmedicinal substance allergy status; Z91.09 Other allergy status, other than to drugs and biological substances
CPT/HCPCS: 73030; 96372; 99283; J1885

== ENCOUNTER 2022-04-21 21:04 | Observation (INO) | payer BC, OTHER ==
[2022-04-21] MEDS ORDERED: Sodium Chloride 0.9% 2.5 ML Syringe FLUSH PRN (22:59)
[2022-04-21] MEDS ORDERED: Sodium Chloride 0.9% 1,000 ML IV ONE (22:59)
[2022-04-21] MEDS ORDERED: Sodium Chloride 0.9% 10 ML Syringe FLUSH PRN (22:59)
[2022-04-21] MEDS ORDERED: Cefepime 2 GM in Premix Bag 1 BAG IV ONE (23:26)
[2022-04-21] MEDS ORDERED: VANCOmycin 1.5 GM/300 ML 1.5 GM in Premix Bag 1 BAG IV ONE (23:45)
[2022-04-21 23:47] LABS: POTASSIUM,K 3.9 mmol/L (3.5-5.1)
[2022-04-22] MEDS ORDERED: Ondansetron 4 MG/2 ML SDV IVPUSH ONE (00:03)
[2022-04-22] MEDS ORDERED: Morphine 4 MG/ML Syringe IVPUSH ONE ×2 (00:03→02:22)
[2022-04-22] MEDS ORDERED: Iopamidol 755 MG/ML 500 ML Multipack Bottle IVPUSH STA (00:46)
[2022-04-22] MEDS ORDERED: Alum Hydro/Mag Hydro/Simeth XS 15 ML, Lidocaine 2% 5 ML PO ONE ×2 (01:52)
[2022-04-22] MEDS ORDERED: Pantoprazole 40 MG in Sodium Chloride 0.9% 10 ML IVPUSH ONE (02:28)
[2022-04-22 02:33] VITALS: BP 111/71; PULSE 78
== END 2022-04-22 02:40 ==
LOC: MW.ED 21:04 → MW.MS 04-22 02:29
PROVIDERS: ADMIT Internal Medicine; ATTEND Internal Medicine
DX: R10.84 Generalized abdominal pain (principal); R07.9 Chest pain, unspecified; I10 Essential (primary) hypertension; F41.9 Anxiety disorder, unspecified; J45.909 Unspecified asthma, uncomplicated; F32.A Depression, unspecified; E66.9 Obesity, unspecified; Z98.890 Other specified postprocedural states; Z20.822 Contact with and (suspected) exposure to COVID-19; Z88.8 Allergy status to other drugs, medicaments and biological substances; Z91.048 Other nonmedicinal substance allergy status; Z79.899 Other long term (current) drug therapy; Z86.16 Personal history of COVID-19; Z68.28 Body mass index [BMI] 28.0-28.9, adult
CPT/HCPCS: 36415; 71045; 74177; 80053; 80307; 81001; 83605; 83690; 83735; 84484; 84703; 85025; 87040; 87635; 93005; 96361; 96365; 96367; 96375; 96376; 99285; A9270; C9113; J0692; J2270; J2405; J3370; J3490; J7030; Q9967; 93010; 99284; U0002

== ENCOUNTER 2022-10-09 14:46 | Inpatient (IN) | payer OTHER ==
[2022-10-09] MEDS ORDERED: Morphine 4 MG/ML Syringe IVPUSH ONE (15:53)
[2022-10-09] MEDS ORDERED: Famotidine 20 MG/2 ML SDV IVPUSH ONE (15:54)
[2022-10-09] MEDS ORDERED: Alum Hydro/Mag Hydro/Simeth XS 15 ML, Lidocaine 2% 5 ML PO ONE ×2 (15:54)
[2022-10-09 16:45] LABS: CARBON DIOXIDE,CO2 26.5 mmol/L (21.0-32.0); POTASSIUM,K 3.5 mmol/L (3.5-5.1)
[2022-10-09] MEDS ORDERED: Ondansetron 4 MG/2 ML SDV IVPUSH ONE (17:20)
[2022-10-09] MEDS ORDERED: Iopamidol 755 MG/ML 500 ML Multipack Bottle IVPUSH ONE (18:43)
[2022-10-09] MEDS ORDERED: HYDROmorphone 1 MG/ML Syringe IVPUSH ONE (18:54)
[2022-10-09] MEDS ORDERED: Sodium Chloride 0.9% 1,000 ML IV ONE (19:59)
[2022-10-09] MEDS ORDERED: Sodium Chloride 0.9% 2,000 ML IV ONE (20:30)
[2022-10-09] MEDS ORDERED: HYDROmorphone 2 MG/ML Syringe IVPUSH ONE (20:38)
[2022-10-09] MEDS ORDERED: Morphine 2 MG/ML SYRINGE IVPUSH PRN (21:42)
[2022-10-09] MEDS ORDERED: Sodium Chloride 0.9% 250 ML IV SCH (21:45)
[2022-10-09] MEDS: Thiamine 200 MG/2 ML MDV IVPUSH SCH (22:17)
[2022-10-09] MEDS ORDERED: Sodium Chloride 0.9% 1,000 ML IV SCH (22:18)
[2022-10-09] MEDS: Sodium Chloride 0.9% 1,000 ML IV SCH (22:30)
[2022-10-10] MEDS ORDERED: Lisinopril/Hydrochlorothiazide 10-12.5 MG Tab PO SCH (00:15)
[2022-10-10] MEDS: Nicotine 21 MG/24 Hr Patch TRDERM SCH ×2 (00:22→09:22)
[2022-10-10] MEDS: Venlafaxine 75 MG Cap.ER PO SCH (00:22)
[2022-10-10] MEDS: HYDROmorphone 1 MG/ML Syringe IVPUSH PRN ×8 (00:23→21:28)
[2022-10-10] MEDS ORDERED: Magnesium Sulfate/Water 2 GM/50 ML Premix Bag IV ONE (00:30)
[2022-10-10] MEDS ORDERED: Magnesium Sulfate/Water 50 ML IV ONE (00:45)
[2022-10-10] MEDS: LORazepam 2 MG/ML SDV IVPUSH PRN ×3 (00:59→09:12)
[2022-10-10] MEDS: Heparin Sodium 5,000 Units/ML Vial SUBCUT SCH ×4 (00:59→23:59)
[2022-10-10 01:01] LABS: CARBON DIOXIDE,CO2 28.9 mmol/L (21.0-32.0); POTASSIUM,K 4.1 mmol/L (3.5-5.1)
[2022-10-10] MEDS: Sodium Chloride 0.9% 1,000 ML IV SCH ×5 (03:48→23:59)
[2022-10-10 06:27] LABS: CARBON DIOXIDE,CO2 26.5 mmol/L (21.0-32.0); POTASSIUM,K 3.5 mmol/L (3.5-5.1)
[2022-10-10] MEDS: Thiamine 200 MG/2 ML MDV IVPUSH SCH (09:13)
[2022-10-10] MEDS ORDERED: Sodium Chloride 0.9% 1,000 ML IV ONE (14:08)
[2022-10-11] MEDS: HYDROmorphone 1 MG/ML Syringe IVPUSH PRN ×6 (00:24→19:33)
[2022-10-11] MEDS: LORazepam 2 MG/ML SDV IVPUSH PRN ×3 (02:11→21:50)
[2022-10-11] MEDS: Sodium Chloride 0.9% 1,000 ML IV SCH ×2 (04:58→11:05)
[2022-10-11] MEDS: Venlafaxine 75 MG Cap.ER PO SCH (08:33)
[2022-10-11] MEDS: Nicotine 21 MG/24 Hr Patch TRDERM SCH (08:34)
[2022-10-11] MEDS: Heparin Sodium 5,000 Units/ML Vial SUBCUT SCH ×2 (08:34→15:31)
[2022-10-11] MEDS: Thiamine 200 MG/2 ML MDV IVPUSH SCH (09:00)
[2022-10-11] MEDS ORDERED: Lisinopril 10 MG Tab PO SCH (09:30)
[2022-10-11 10:19] LABS: CARBON DIOXIDE,CO2 26.2 mmol/L (21.0-32.0); POTASSIUM,K 4.2 mmol/L (3.5-5.1)
[2022-10-11] MEDS: Lisinopril 10 MG Tab PO SCH (10:50)
[2022-10-11] MEDS: Dextrose 5%-0.9% NaCl 1,000 ML IV SCH (18:10)
[2022-10-12] MEDS: HYDROmorphone 1 MG/ML Syringe IVPUSH PRN ×3 (00:04→07:27)
[2022-10-12] MEDS: Heparin Sodium 5,000 Units/ML Vial SUBCUT SCH ×2 (00:05→09:25)
[2022-10-12] MEDS: Dextrose 5%-0.9% NaCl 1,000 ML IV SCH ×2 (01:22→08:40)
[2022-10-12] MEDS: LORazepam 2 MG/ML SDV IVPUSH PRN ×2 (03:33→11:41)
[2022-10-12 08:27] LABS: CARBON DIOXIDE,CO2 20.9 mmol/L (21.0-32.0); POTASSIUM,K 4.3 mmol/L (3.5-5.1)
[2022-10-12] MEDS ORDERED: Lisinopril 10 MG Tab PO SCH (09:00)
[2022-10-12] MEDS: Venlafaxine 75 MG Cap.ER PO SCH (09:25)
[2022-10-12] MEDS: Nicotine 21 MG/24 Hr Patch TRDERM SCH (09:29)
[2022-10-12] MEDS: Thiamine 200 MG/2 ML MDV IVPUSH SCH (09:29)
[2022-10-12] MEDS: Lisinopril 10 MG Tab PO SCH (09:30)
[2022-10-12] MEDS ORDERED: oxyCODONE 5 MG Tab PO PRN (09:56)
[2022-10-12] MEDS ORDERED: HYDROmorphone 1 MG/ML Syringe IVPUSH PRN (09:58)
[2022-10-12 11:35] VITALS: BP 188/93; PULSE 99
== END 2022-10-12 15:43 | disposition home or self-care (01) | DRG 439 ==
LOC: MW.ED 14:46 → MW.MS 20:31
PROVIDERS: ADMIT Internal Medicine; ATTEND Internal Medicine
DX: K85.20 Alcohol induced acute pancreatitis without necrosis or infection (principal); E87.1 Hypo-osmolality and hyponatremia; F10.239 Alcohol dependence with withdrawal, unspecified; E66.9 Obesity, unspecified; J45.909 Unspecified asthma, uncomplicated; D64.9 Anemia, unspecified; F17.210 Nicotine dependence, cigarettes, uncomplicated; F41.9 Anxiety disorder, unspecified; K21.9 Gastro-esophageal reflux disease without esophagitis; Z20.822 Contact with and (suspected) exposure to COVID-19; F32.A Depression, unspecified; I10 Essential (primary) hypertension; Z88.8 Allergy status to other drugs, medicaments and biological substances; Z68.30 Body mass index [BMI] 30.0-30.9, adult; Z90.49 Acquired absence of other specified parts of digestive tract; Z90.89 Acquired absence of other organs; Z98.890 Other specified postprocedural states
CPT/HCPCS: 36415; 74177; 74177-26; 80048; 80053; 80307; 81025; 82947; 83605; 83690; 83735; 84100; 84484; 84703; 85025; 85610; 85730; 93005; 93010; 96361; 96374; 96375; 96376; 99284; 99285-25; A9270-GY; J1170; J1644; J2060; J2270; J2405; J3411; J3475; J3490; J7030; J7042; Q9967; U0002

== ENCOUNTER 2022-10-23 02:46 | Emergency (ER) | payer OTHER ==
[2022-10-23] MEDS ORDERED: Bisacodyl 5 MG Tab PO ONE (03:08)
[2022-10-23] MEDS ORDERED: Bisacodyl 10 MG Supp RECTAL ONE (03:08)
[2022-10-23] MEDS ORDERED: Lactulose Soln 10 GM/15 ML 15 ML UD Cup PO ONE (03:09)
[2022-10-23 03:52] VITALS: BP 100/59; PULSE 88
== END 2022-10-23 04:03 | disposition home or self-care (01) ==
LOC: MW.ED 02:46
DX: K59.00 Constipation, unspecified (principal); I10 Essential (primary) hypertension; J45.909 Unspecified asthma, uncomplicated; E66.9 Obesity, unspecified; Z68.27 Body mass index [BMI] 27.0-27.9, adult; Z86.16 Personal history of COVID-19; Z79.899 Other long term (current) drug therapy; Z88.8 Allergy status to other drugs, medicaments and biological substances; Z91.09 Other allergy status, other than to drugs and biological substances
CPT/HCPCS: 74022; 99283; A9270

== ENCOUNTER 2022-11-16 18:57 | Emergency (ER) | payer OTHER ==
[2022-11-16 21:14] VITALS: BP 110/70; PULSE 90
== END 2022-11-16 21:00 | disposition home or self-care (01) ==
LOC: MW.ED 18:57
DX: K59.00 Constipation, unspecified (principal); I10 Essential (primary) hypertension; E66.9 Obesity, unspecified; Z68.29 Body mass index [BMI] 29.0-29.9, adult; Z79.899 Other long term (current) drug therapy; Z91.048 Other nonmedicinal substance allergy status; Z88.8 Allergy status to other drugs, medicaments and biological substances; Z86.16 Personal history of COVID-19
CPT/HCPCS: 99283

== ENCOUNTER 2022-12-15 22:07 | Emergency (ER) | payer OTHER ==
[2022-12-15] MEDS ORDERED: Sodium Chloride 0.9% 1,000 ML IV ONE ×2 (22:24→23:58)
[2022-12-15 22:36] LABS: APPEARANCE,URINE CLEAR; BILIRUBIN,URINE NEGATIVE (NEGATIVE); COLOR,URINE YELLOW; GLUCOSE,URINE NEGATIVE (NEGATIVE); KETONES,URINE NEGATIVE (NEGATIVE); LEUKOCYTE ESTERASE,URINE NEGATIVE (NEGATIVE); NITRITE,URINE NEGATIVE (NEGATIVE); OCCULT BLOOD,URINE MODERATE (NEGATIVE); PROTEIN,URINE NEGATIVE (NEGATIVE); UROBILINOGEN,URINE 0.2 EU/dL (<2.0)
[2022-12-15 22:45] LABS: RBC,URINE 0-2 (0-2/HPF); WBC,URINE 0-1 (0-5/HPF)
[2022-12-15 22:46] LABS: BACTERIA,URINE FEW (NEGATIVE); EPITHELIAL CELLS,URINE FEW (NONE-FEW)
[2022-12-15 22:48] LABS: BASOPHILS ABSOLUTE AUTO 0.1 K/uL (0.0-0.1); BASOPHILS PERCENT AUTO 0.5 % (0.0-1.5); EOSINOPHILS ABSOLUTE AUTO 0.2 K/uL (0.0-0.7); EOSINOPHILS PERCENT AUTO 1.7 % (0.0-7.0); HEMATOCRIT 46.2 % (36.0-46.0); HEMOGLOBIN 16.2 g/dL (12.0-16.0); LYMPHOCYTES ABSOLUTE AUTO 2.8 K/uL (0.6-2.4); LYMPHOCYTES PERCENT AUTO 27.7 % (16.0-40.0); MEAN CORPUSCULAR HEMOGLOBIN 35.8 pg (27.0-32.0); MEAN CORPUSCULAR HGB CONC 35.1 g/dL (31.0-37.0); MONOCYTES ABSOLUTE AUTO 1.4 K/uL (0.0-0.8); MONOCYTES PERCENT AUTO 14.2 % (0.0-15.0); NEUTROPHILS ABSOLUTE AUTO 5.6 K/uL (1.4-5.7); NEUTROPHILS PERCENT AUTO 55.9 % (48.0-80.0); NRBC ABSOLUTE 0 K/uL; RED BLOOD CELL COUNT 4.53 M/uL (4.30-5.90); WHITE BLOOD CELL COUNT,WBC 10.05 K/uL (4.0-11.0)
[2022-12-15 22:59] LABS: PLATELET COUNT,PLT 267 K/uL (150-400)
[2022-12-15 23:03] LABS: A/G RATIO 0.9 (0.9-1.6); ALANINE AMINOTRANSFERASE,ALT 73 IU/L (14-63); ALBUMIN 3.7 g/dL (3.4-5.0); ALKALINE PHOSPHATASE 179 U/L (46-116); ASPARTATE AMNIOTRANSFERASE,AST 201 IU/L (15-37); BILIRUBIN TOTAL 1.4 mg/dL (0.2-1.0); BLOOD UREA NITROGEN,BUN 5 mg/dL (7.0-18.0); CALCIUM 8.7 mg/dL (8.5-10.1); CHLORIDE,CL 88 mmol/L (98-107); CREATININE 0.9 mg/dL (0.6-1.0); GLUCOSE RANDOM 111 mg/dL (74-106); LIPASE 48 U/L (73-393); SODIUM,NA 128 mmol/L (136-145)
[2022-12-15 23:08] LABS: LACTIC ACID 2.6 mmol/L (0.4-2.0)
[2022-12-15 23:11] LABS: ESTIMATED GFR 80 mL/min (>60)
[2022-12-15] MEDS ORDERED: Potassium Chloride 20 MEQ Tab.ER PO STA (23:22)
[2022-12-16] MEDS ORDERED: Iopamidol 755 MG/ML 500 ML Multipack Bottle IVPUSH STA (00:07)
[2022-12-16] MEDS ORDERED: Potassium Chloride 20 MEQ Tab.ER PO STA (01:58)
[2022-12-16] MEDS ORDERED: Ondansetron 4 MG Tab.DIS PO STA (02:25)
[2022-12-16 02:39] VITALS: BP 110/73; PULSE 86
== END 2022-12-16 02:39 | disposition home or self-care (01) ==
LOC: MW.ED 22:07
DX: K59.00 Constipation, unspecified (principal); I10 Essential (primary) hypertension; J45.909 Unspecified asthma, uncomplicated; E66.9 Obesity, unspecified; Z86.16 Personal history of COVID-19; Z91.048 Other nonmedicinal substance allergy status; Z88.8 Allergy status to other drugs, medicaments and biological substances; Z79.899 Other long term (current) drug therapy
CPT/HCPCS: 36415; 74177; 80053; 80307; 81001; 83605; 83690; 85025; 96360; 96361; 99284; A9270; J7030; Q9967